=== PATIENT | male | born 1945 | race Caucasian/White ===

== ENCOUNTER 2016-08-29 09:58 | Outpatient (RCR) | payer MEDICARE, OTHER ==
[2016-06-01 09:35] LABS: BASOPHILS % (AUTO) 0 % (0-10); EOSINOPHILS % (AUTO) 0 % (0-10); LYMPHOCYTES # (AUTO) 2.2 X 10^3 (1.0-4.0); LYMPHOCYTES % (AUTO) 27 % (12-44); MEAN CORPUSCULAR HEMOGLOBIN 35 PG (25-34); MEAN CORPUSCULAR HGB CONC 34 G/DL (32-36); MEAN CORPUSCULAR VOLUME 102 FL (80-99); MEAN PLATELET VOLUME 11.8 FL (7.4-10.4); MONOCYTES # (AUTO) 1.3 X 10^3 (0.0-1.0); MONOCYTES % (AUTO) 17 % (0-12); NEUTROPHILS # (AUTO) 4.5 X 10^3 (1.8-7.8); NEUTROPHILS % (AUTO) 56 % (42-75); PLATELET COUNT 103 10^3/uL (130-400); RED BLOOD COUNT 3.38 10^6/uL (4.35-5.85); RED CELL DISTRIBUTION WIDTH 14.9 % (10.0-14.5)
[2016-06-01 10:00] LABS: ALBUMIN 4.4 G/DL (3.2-4.5); BILIRUBIN,TOTAL 0.9 MG/DL (0.1-1.0); CALCIUM 9.6 MG/DL (8.5-10.1); CREATININE SERUM 1.57 MG/DL (0.60-1.30); POTASSIUM 5.2 MMOL/L (3.6-5.0); TOTAL PROTEIN 7.3 G/DL (6.4-8.2)
[~2016-08-29 09:58] MED LIST: ALLP300T PO; AMIO400T5 PO; ASP325T; ASP325T PO; ATOR20TA66 PO; ATOR40TA; ATOR80TA PO; ATOR80TA75 PO; CARV12.52; CARV12.53 PO; CARV25TA PO; CYCL10TA9 PO; DABI150C2 PO; DCS100C PO; DIGO250T PO; FERR28TA PO; FERR325T74; GLBR2.5T; HC2.5C30 TOP; HCT25T; HCT25T PO; HYDR12.56 PO; INSU100I23 SQ; INSU100V6 SQ; KCL10CCR; LEVO100T7 PO; LIRA0.6P3 SQ; LISI10TA PO; LISI10TA2; LISI20TA PO; LSNP10T; LVT.05T PO; MAGN400T29 PO; METFOR850T; METFOR850T PO; MULT-68 PO; MULT-974 PO; MULT1CAP27 PO; MULT1TAB63; OMEG1CAP26 PO; OMG1KC; POTA10CA43 PO; SAXA5TAB PO; SIMV40TA4 PO; SITA50TA PO; TRAM-21 PO; TRM50T PO; WARF4TAB; WRF2.5T PO
[2016-08-29 10:10] LABS: BASOPHILS % (AUTO) 0 % (0-10); EOSINOPHILS % (AUTO) 1 % (0-10); LYMPHOCYTES # (AUTO) 1.6 X 10^3 (1.0-4.0); LYMPHOCYTES % (AUTO) 25 % (12-44); MEAN CORPUSCULAR HEMOGLOBIN 33 PG (25-34); MEAN CORPUSCULAR HGB CONC 34 G/DL (32-36); MEAN CORPUSCULAR VOLUME 99 FL (80-99); MEAN PLATELET VOLUME 11.3 FL (7.4-10.4); MONOCYTES # (AUTO) 1.3 X 10^3 (0.0-1.0); MONOCYTES % (AUTO) 20 % (0-12); NEUTROPHILS # (AUTO) 3.6 X 10^3 (1.8-7.8); NEUTROPHILS % (AUTO) 55 % (42-75); PLATELET COUNT 111 10^3/uL (130-400); RED BLOOD COUNT 3.51 10^6/uL (4.35-5.85); RED CELL DISTRIBUTION WIDTH 14.9 % (10.0-14.5); WHITE BLOOD COUNT 6.5 10^3/uL (4.3-11.0)
[2016-08-29 10:45] LABS: ALBUMIN 4.1 G/DL (3.2-4.5); CALCIUM 9.1 MG/DL (8.5-10.1); CREATININE SERUM 1.55 MG/DL (0.60-1.30); POTASSIUM 4.8 MMOL/L (3.6-5.0); TOTAL PROTEIN 6.9 G/DL (6.4-8.2)
== END 2016-08-30 | disposition home or self-care (01) ==
LOC: ONC 09:58
PROVIDERS: ATTEND Internal Medicine Hematology & Oncology
DX: C93.10 Chronic myelomonocytic leukemia not having achieved remission (principal); R16.1 Splenomegaly, not elsewhere classified; D69.6 Thrombocytopenia, unspecified; D64.9 Anemia, unspecified; Z79.899 Other long term (current) drug therapy
CPT/HCPCS: 36415; 80053; 83615; 85025; 99213

== ENCOUNTER 2016-11-30 09:17 | Outpatient (RCR) | payer MEDICARE, OTHER ==
[2016-11-30 09:32] LABS: BASOPHILS % (AUTO) 0 % (0-10); EOSINOPHILS # (AUTO) 0.1 10^3/uL (0.0-0.3); EOSINOPHILS % (AUTO) 1 % (0-10); LYMPHOCYTES # (AUTO) 1.8 X 10^3 (1.0-4.0); LYMPHOCYTES % (AUTO) 29 % (12-44); MEAN CORPUSCULAR HEMOGLOBIN 34 PG (25-34); MEAN CORPUSCULAR HGB CONC 34 G/DL (32-36); MEAN CORPUSCULAR VOLUME 99 FL (80-99); MEAN PLATELET VOLUME 11.2 FL (7.4-10.4); MONOCYTES % (AUTO) 16 % (0-12); NEUTROPHILS # (AUTO) 3.3 X 10^3 (1.8-7.8); NEUTROPHILS % (AUTO) 53 % (42-75); PLATELET COUNT 109 10^3/uL (130-400); RED BLOOD COUNT 3.54 10^6/uL (4.35-5.85); RED CELL DISTRIBUTION WIDTH 15.1 % (10.0-14.5); WHITE BLOOD COUNT 6.2 10^3/uL (4.3-11.0)
[2016-11-30 10:17] LABS: ALBUMIN 4.1 G/DL (3.2-4.5); BILIRUBIN,TOTAL 0.9 MG/DL (0.1-1.0); CALCIUM 9.4 MG/DL (8.5-10.1); CREATININE SERUM 1.46 MG/DL (0.60-1.30); POTASSIUM 5.1 MMOL/L (3.6-5.0); TOTAL PROTEIN 6.8 G/DL (6.4-8.2)
== END 2017-02-28 | disposition home or self-care (01) ==
LOC: ONC 09:17
PROVIDERS: ATTEND Internal Medicine Hematology & Oncology
DX: C93.10 Chronic myelomonocytic leukemia not having achieved remission (principal); R16.1 Splenomegaly, not elsewhere classified; D69.6 Thrombocytopenia, unspecified; D64.9 Anemia, unspecified; Z79.899 Other long term (current) drug therapy
CPT/HCPCS: 36415; 80053; 83615; 85025; 99213

== ENCOUNTER 2017-05-23 09:09 | Outpatient (RCR) | payer MEDICARE, OTHER ==
[2017-05-23 09:19] LABS: BASOPHILS % (AUTO) 0 % (0-10); EOSINOPHILS % (AUTO) 0 % (0-10); HEMATOCRIT 40 % (40-54); HEMOGLOBIN 13.6 G/DL (13.3-17.7); LYMPHOCYTES # (AUTO) 2.6 X 10^3 (1.0-4.0); LYMPHOCYTES % (AUTO) 23 % (12-44); MEAN CORPUSCULAR HEMOGLOBIN 34 PG (25-34); MEAN CORPUSCULAR HGB CONC 34 G/DL (32-36); MEAN CORPUSCULAR VOLUME 101 FL (80-99); MEAN PLATELET VOLUME 12.1 FL (7.4-10.4); MONOCYTES # (AUTO) 1.6 X 10^3 (0.0-1.0); MONOCYTES % (AUTO) 14 % (0-12); NEUTROPHILS # (AUTO) 6.9 X 10^3 (1.8-7.8); NEUTROPHILS % (AUTO) 62 % (42-75); PLATELET COUNT 107 10^3/uL (130-400); RED BLOOD COUNT 3.96 10^6/uL (4.35-5.85); RED CELL DISTRIBUTION WIDTH 15.6 % (10.0-14.5); WHITE BLOOD COUNT 11.1 10^3/uL (4.3-11.0)
[2017-05-23 09:45] LABS: ALBUMIN 4.2 GM/DL (3.2-4.5); CREATININE SERUM 1.42 MG/DL (0.60-1.30); POTASSIUM 4.8 MMOL/L (3.6-5.0); TOTAL PROTEIN 7.4 GM/DL (6.4-8.2)
== END 2017-08-21 | disposition home or self-care (01) ==
LOC: ONC 09:09
PROVIDERS: ATTEND Internal Medicine Hematology & Oncology
DX: C93.10 Chronic myelomonocytic leukemia not having achieved remission (principal); D69.6 Thrombocytopenia, unspecified; D64.9 Anemia, unspecified; I13.0 Hypertensive heart and chronic kidney disease with heart failure and stage 1 through stage 4 chronic kidney disease, or unspecified chronic kidney disease; I50.9 Heart failure, unspecified; N18.3 Chronic kidney disease, stage 3 (moderate); E11.22 Type 2 diabetes mellitus with diabetic chronic kidney disease; E78.5 Hyperlipidemia, unspecified; I65.23 Occlusion and stenosis of bilateral carotid arteries; E03.9 Hypothyroidism, unspecified; Z79.4 Long term (current) use of insulin; Z79.899 Other long term (current) drug therapy
CPT/HCPCS: 36415; 80053; 83615; 85025; 99213

== ENCOUNTER 2017-11-20 08:57 | Outpatient (RCR) | payer MEDICARE, OTHER ==
[2017-11-20 09:23] LABS: BASOPHILS % (AUTO) 0 % (0-10); EOSINOPHILS % (AUTO) 0 % (0-10); HEMATOCRIT 36 % (40-54); HEMOGLOBIN 12.1 G/DL (13.3-17.7); LYMPHOCYTES # (AUTO) 1.6 X 10^3 (1.0-4.0); LYMPHOCYTES % (AUTO) 22 % (12-44); MEAN CORPUSCULAR HEMOGLOBIN 34 PG (25-34); MEAN CORPUSCULAR HGB CONC 34 G/DL (32-36); MEAN CORPUSCULAR VOLUME 99 FL (80-99); MEAN PLATELET VOLUME 11.5 FL (7.4-10.4); MONOCYTES # (AUTO) 1.1 X 10^3 (0.0-1.0); MONOCYTES % (AUTO) 15 % (0-12); NEUTROPHILS # (AUTO) 4.7 X 10^3 (1.8-7.8); NEUTROPHILS % (AUTO) 63 % (42-75); PLATELET COUNT 92 10^3/uL (130-400); RED BLOOD COUNT 3.58 10^6/uL (4.35-5.85); RED CELL DISTRIBUTION WIDTH 15.8 % (10.0-14.5); WHITE BLOOD COUNT 7.4 10^3/uL (4.3-11.0)
[2017-11-20 09:42] LABS: ALBUMIN 4.1 GM/DL (3.2-4.5); BILIRUBIN,TOTAL 1.1 MG/DL (0.1-1.0); CALCIUM 8.9 MG/DL (8.5-10.1); CREATININE SERUM 1.32 MG/DL (0.60-1.30); POTASSIUM 4.6 MMOL/L (3.6-5.0)
== END 2018-02-18 | disposition home or self-care (01) ==
LOC: ONC 08:57
PROVIDERS: ATTEND Internal Medicine Hematology & Oncology
DX: C93.10 Chronic myelomonocytic leukemia not having achieved remission (principal); D69.6 Thrombocytopenia, unspecified; D64.9 Anemia, unspecified; I13.0 Hypertensive heart and chronic kidney disease with heart failure and stage 1 through stage 4 chronic kidney disease, or unspecified chronic kidney disease; I50.9 Heart failure, unspecified; N18.3 Chronic kidney disease, stage 3 (moderate); E11.22 Type 2 diabetes mellitus with diabetic chronic kidney disease; E78.5 Hyperlipidemia, unspecified; I65.23 Occlusion and stenosis of bilateral carotid arteries; E03.9 Hypothyroidism, unspecified; Z79.4 Long term (current) use of insulin; Z79.899 Other long term (current) drug therapy
CPT/HCPCS: 36415; 80053; 83615; 85025; 99213

== ENCOUNTER → 2018-03-01 | Outpatient (CLI) | payer MEDICARE, OTHER ==
--- NOTE | 2018-03-01 12:25 | Diagnostic Imaging Report ---
PROCEDURE: CT abdomen and pelvis without contrast. TECHNIQUE: Multiple contiguous axial images were obtained through the abdomen and pelvis without the use of intravenous contrast. INDICATION: Mid abdominal pain for one week. COMPARISON: Comparison is made with prior CT from 05/09/2014. FINDINGS: The lung bases are clear. No discrete liver mass is identified. The gallbladder is surgically absent. The pancreas and spleen are unremarkable. No adrenal mass is identified. Small nonobstructing calculus lower pole left kidney is again noted. No hydronephrosis is seen. The right kidney is unremarkable. Aorta is calcified but non-aneurysmal. Bowel loops do not appear to be abnormally dilated. There is no ascites. No inflammatory process is seen. There is moderate stool in the colon. Bladder and prostate are unremarkable. There appears to be a fat-containing left inguinal hernia. IMPRESSION: 1. Nonobstructing left nephrolithiasis. 2. Moderate stool suggestive of constipation. No acute feature is seen. 3. Fat containing left inguinal hernia. Dictated by: Dictated on workstation # [id number]
== END ==
LOC: RAD 11:42
DX: N20.0 Calculus of kidney (principal); K40.90 Unilateral inguinal hernia, without obstruction or gangrene, not specified as recurrent
CPT/HCPCS: 74176

== ENCOUNTER → 2018-03-18 | Outpatient (CLI) | payer MEDICARE, OTHER | LOC: CARD 12:32 | PROVIDERS: ATTEND Internal Medicine Cardiovascular Disease | DX: I25.10 Atherosclerotic heart disease of native coronary artery without angina pectoris (principal); I11.0 Hypertensive heart disease with heart failure; I50.9 Heart failure, unspecified; E78.5 Hyperlipidemia, unspecified; I08.3 Combined rheumatic disorders of mitral, aortic and tricuspid valves | CPT/HCPCS: 93306 ==

== ENCOUNTER → 2018-03-18 | Outpatient (CLI) | payer MEDICARE, OTHER ==
--- NOTE | 2018-03-18 14:02 | Diagnostic Imaging Report ---
INDICATION: Pain in low back on the right side with pain radiating down the back leg. Symptoms for several months. More recent fall two days ago. TECHNIQUE: AP, Lateral and Swimmers imaging of the thoracic spine CORRELATION STUDY: None FINDINGS: Overall, slight accentuated thoracic kyphotic curvature is noted with mildly anterior wedged midthoracic vertebral bodies. There is diffuse thin bridging osteophytes of thoracic spine consistent with likely ankylosing spondylitis. Mild rightward curvature or rotation of the patient. IMPRESSION: No radiographic evidence for acute abnormality of the thoracic spine. Findings suggestive of ankylosing spondylitis with diffuse thin bridging osteophytes large portion of the thoracic spine. Dictated by: Dictated on workstation # [id number]
--- NOTE | 2018-03-18 14:03 | Diagnostic Imaging Report ---
INDICATION: Low back pain, right-sided pain radiating down the back of leg intermittently for several months. History of fall two days ago. TECHNIQUE: AP, Lateral, and Spot imaging of the lumbar spine. CORRELATION STUDY: None. FINDINGS: Alignment appearing to be relatively anatomic. Vertebral body heights are maintained. No acute appearing compression deformity. There are bridging osteophytes at multiple levels. More prominent bulky non-bridging osteophytes anteriorly at L4 and L5 levels. Hypertrophic facet arthropathy. Mild disc space narrowing, particularly at L5-S1 level. Vascular calcification is present. IMPRESSION: No suggestion of acute compression deformity about the lumbar spine. Mildly to moderately advanced multilevel degenerative changes are present. Dictated by: Dictated on workstation # [id number]
== END ==
LOC: RAD 12:34
DX: M48.061 Spinal stenosis, lumbar region without neurogenic claudication (principal); M48.04 Spinal stenosis, thoracic region; M47.816 Spondylosis without myelopathy or radiculopathy, lumbar region; Z91.81 History of falling
CPT/HCPCS: 72072; 72100

== ENCOUNTER → 2018-03-21 | Outpatient (CLI) | payer MEDICARE, OTHER ==
--- NOTE | 2018-03-21 17:13 | Diagnostic Imaging Report ---
PROCEDURE: MRI lumbar spine. INDICATION: Low back pain with right hip and leg pain for a couple of months. No known injury. TECHNIQUE: Multiplanar and multisequence noncontrast magnetic resonance imaging was performed of the lumbar spine. CORRELATION STUDY: Lumbar spine radiographs 03/18/2018. FINDINGS: There is normal alignment and curvature of the lumbar spine. The lumbar vertebral body heights are maintained. Rounded T1 and T2 hyperintense lesion inferiorly at L3 vertebral body likely reflects a small hemangioma. The conus appears unremarkable. L5-S1: Slight disc desiccation. Mild broad-based disc bulge and very mild endplate osteophyte formation. Some encroachment upon the foramina without significant nerve root impingement. Probable small cyst within the sacral spinal canal at S2. L4-L5: Fairly good preservation of the disc space height. Very mild broad-based disc bulge is noted. Ligamentum and facet hypertrophy results in moderate trefoil-type spinal canal narrowing. Disc osteophyte formation results in rather significant right and to a lesser degree left foraminal narrowing. There is some compression and mass effect upon the exiting nerve roots. L3-L4: Ligamentum and facet hypertrophy results in wrct-ty-nbrzqban trefoil-type spinal canal narrowing. There is slight loss of disc space height and signal intensity. There is some effacement of the perineural fat. There is slight mass effect upon the exiting nerve roots. L2-L3: Fairly good preservation of the disc space height and signal intensity. Mild ligamentum and facet hypertrophy is present. Very mild trefoil-type spinal canal narrowing. Slight effacement of the perineural fat without significant nerve root impingement. L1-L2: Unremarkable. Very small T2 hyperintense lesions within the renal parenchyma of the left kidney favoring small cysts. Partially visualized urinary bladder appears to be distended. IMPRESSION: 1. Prominent severity of ligamentum and facet hypertrophy along with mild degenerative disc disease results in areas of multifocal spinal canal and foraminal narrowing as detailed above. Findings appearing most severe at the L4-L5 and L3-L4 levels. Dictated by: Dictated on workstation # [id number]
== END ==
LOC: RAD 15:08
DX: M48.061 Spinal stenosis, lumbar region without neurogenic claudication (principal); M51.17 Intervertebral disc disorders with radiculopathy, lumbosacral region; M25.78 Osteophyte, vertebrae; M89.9 Disorder of bone, unspecified; M99.73 Connective tissue and disc stenosis of intervertebral foramina of lumbar region; N28.89 Other specified disorders of kidney and ureter
CPT/HCPCS: 72148

== ENCOUNTER 2018-05-21 08:54 | Outpatient (RCR) | payer MEDICARE, OTHER ==
[2018-05-21 09:06] LABS: BASOPHILS % (AUTO) 0 % (0-10); EOSINOPHILS % (AUTO) 1 % (0-10); HEMATOCRIT 33 % (40-54); HEMOGLOBIN 11.1 G/DL (13.3-17.7); LYMPHOCYTES # (AUTO) 1.6 X 10^3 (1.0-4.0); LYMPHOCYTES % (AUTO) 22 % (12-44); MEAN CORPUSCULAR HEMOGLOBIN 34 PG (25-34); MEAN CORPUSCULAR HGB CONC 33 G/DL (32-36); MEAN CORPUSCULAR VOLUME 101 FL (80-99); MEAN PLATELET VOLUME 11.1 FL (7.4-10.4); MONOCYTES # (AUTO) 1.1 X 10^3 (0.0-1.0); MONOCYTES % (AUTO) 16 % (0-12); NEUTROPHILS # (AUTO) 4.3 X 10^3 (1.8-7.8); NEUTROPHILS % (AUTO) 61 % (42-75); PLATELET COUNT 92 10^3/uL (130-400); RED BLOOD COUNT 3.28 10^6/uL (4.35-5.85); WHITE BLOOD COUNT 7.1 10^3/uL (4.3-11.0)
[2018-05-21 09:32] LABS: ALBUMIN 4.1 GM/DL (3.2-4.5); BILIRUBIN,TOTAL 0.8 MG/DL (0.1-1.0); CALCIUM 8.9 MG/DL (8.5-10.1); CREATININE SERUM 1.44 MG/DL (0.60-1.30); POTASSIUM 4.8 MMOL/L (3.6-5.0); TOTAL PROTEIN 6.7 GM/DL (6.4-8.2)
== END 2018-08-19 | disposition home or self-care (01) ==
LOC: ONC 08:54
PROVIDERS: ATTEND Internal Medicine Hematology & Oncology
DX: C93.10 Chronic myelomonocytic leukemia not having achieved remission (principal); D69.6 Thrombocytopenia, unspecified; D64.9 Anemia, unspecified; I13.0 Hypertensive heart and chronic kidney disease with heart failure and stage 1 through stage 4 chronic kidney disease, or unspecified chronic kidney disease; I50.9 Heart failure, unspecified; N18.3 Chronic kidney disease, stage 3 (moderate); E11.22 Type 2 diabetes mellitus with diabetic chronic kidney disease; E78.5 Hyperlipidemia, unspecified; I65.23 Occlusion and stenosis of bilateral carotid arteries; E03.9 Hypothyroidism, unspecified; Z79.4 Long term (current) use of insulin; Z79.899 Other long term (current) drug therapy
CPT/HCPCS: 36415; 80053; 83615; 85025; 99213

== ENCOUNTER 2018-11-21 08:49 | Outpatient (RCR) | payer MEDICARE, OTHER ==
[2018-11-21 08:53] LABS: BASOPHILS % (AUTO) 0 % (0-10); EOSINOPHILS # (AUTO) 0.1 10^3/uL (0.0-0.3); EOSINOPHILS % (AUTO) 1 % (0-10); HEMATOCRIT 36 % (40-54); HEMOGLOBIN 12.2 G/DL (13.3-17.7); LYMPHOCYTES # (AUTO) 2.1 X 10^3 (1.0-4.0); LYMPHOCYTES % (AUTO) 34 % (12-44); MEAN CORPUSCULAR HEMOGLOBIN 33 PG (25-34); MEAN CORPUSCULAR HGB CONC 34 G/DL (32-36); MEAN CORPUSCULAR VOLUME 100 FL (80-99); MEAN PLATELET VOLUME 10.9 FL (7.4-10.4); MONOCYTES # (AUTO) 1.4 X 10^3 (0.0-1.0); MONOCYTES % (AUTO) 23 % (0-12); NEUTROPHILS # (AUTO) 2.5 X 10^3 (1.8-7.8); NEUTROPHILS % (AUTO) 42 % (42-75); PLATELET COUNT 92 10^3/uL (130-400); RED CELL DISTRIBUTION WIDTH 15.9 % (10.0-14.5); WHITE BLOOD COUNT 6.1 10^3/uL (4.3-11.0)
[2018-11-21 09:20] LABS: ALBUMIN 4.3 GM/DL (3.2-4.5); BILIRUBIN,TOTAL 1.3 MG/DL (0.1-1.0); CALCIUM 9.1 MG/DL (8.5-10.1); CREATININE SERUM 1.58 MG/DL (0.60-1.30); POTASSIUM 5.1 MMOL/L (3.6-5.0); TOTAL PROTEIN 7.3 GM/DL (6.4-8.2)
== END 2019-02-19 | disposition home or self-care (01) ==
LOC: ONC 08:49
PROVIDERS: ATTEND Internal Medicine Hematology & Oncology
DX: C93.10 Chronic myelomonocytic leukemia not having achieved remission (principal); D69.6 Thrombocytopenia, unspecified; D64.9 Anemia, unspecified; I13.0 Hypertensive heart and chronic kidney disease with heart failure and stage 1 through stage 4 chronic kidney disease, or unspecified chronic kidney disease; I50.9 Heart failure, unspecified; N18.3 Chronic kidney disease, stage 3 (moderate); E11.22 Type 2 diabetes mellitus with diabetic chronic kidney disease; E78.5 Hyperlipidemia, unspecified; I65.23 Occlusion and stenosis of bilateral carotid arteries; E03.9 Hypothyroidism, unspecified; Z79.4 Long term (current) use of insulin; Z79.899 Other long term (current) drug therapy
CPT/HCPCS: 36415; 80053; 83615; 85025; 99213

== ENCOUNTER 2019-04-01 09:49 | Emergency (ER) | payer MEDICARE, OTHER ==
[~2019-04-01] VITALS: Ht 188 cm; Wt 100.2 kg
--- NOTE | 2019-04-01 10:37 | NUR ---
RESTING IN CHAIR. DENIES NEEDS. NOTIFIED HIM A 2ND PROVIDER WOULD BE HERE SOON.
[2019-04-01] MEDS ORDERED: CEPH-507 PO (10:56)
--- NOTE | 2019-04-01 10:56 | ED Lower Extremity ---
General Chief Complaint: Laceration Stated Complaint: TOE LACERATION Nursing Triage Note: LACERATION TO RIGHT GREAT TOE THIS AM. PT IS A DIABETIC. Nursing Sepsis Screen: No Definite Risk Source: patient Exam Limitations: no limitations History of Present Illness Date Seen by Provider: Apr 01, 2019 Time Seen by Provider: 10:53 Initial Comments To ER with reports of a laceration to the right great toe. Unsure how he got it, woke up this morning and was getting ready, looks down the floor noticed some blood. Does not recall any injury, he is diabetic and has neuropathy of the feet. He is on Pradaxa Onset: just prior to arrival Severity: moderate Pain/Injury Location: right 1st toe Method of Injury: unknown Modifying Factors: Worse With Movement Allergies and Home Medications Allergies Coded Allergies: No Known Drug Allergies (Verified , 04/20/08) Home Medications Allopurinol 300 Mg Tab, 300 MG PO DAILY, (Reported) Atorvastatin Calcium 20 Mg Tablet, 20 MG PO HS, (Reported) Carvedilol 25 Mg Tablet, 25 MG PO BID, (Reported) Cyclobenzaprine Hcl 10 Mg Tablet, 1 EACH PO Q8HR PRN Prescribed by: KATHRIN RICHMOND on 05/09/14 1655 Dabigatran Etexilate Mesylate 150 Mg Capsule, 150 MG PO BID, (Reported) Digoxin 250 Mcg Tablet, 0.25 MG PO DAILY, (Reported) Docusate Sodium 100 Mg Capsule, 100 MG PO DAILY PRN for CONSTIPATION, (Reported) Hydrochlorothiazide 12.5 Mg Tablet, 12.5 MG PO DAILY, (Reported) Insulin Glargine,Hum.rec.anlog 100 Unit/1 Ml Vial, 40 UNIT SQ BID, (Reported) Insulin Lispro 100 Unit/1 Ml Insuln.pen, 20 UNIT SQ with lunch and dinne, (Reported) Levothyroxine Sodium 100 Mcg Tablet, 100 MCG PO DAILY, (Reported) Liraglutide 0.6 Mg/0.1 Ml Pen.injctr, 1.2 MG SQ DAILY, (Reported) Lisinopril 10 Mg Tablet, 10 MG PO BID, (Reported) Magnesium Oxide 400 Mg Tablet, 400 MG PO BID, (Reported) [place]-3/Dha/Epa/Fish Oil 1 Each Capsule, 1,000 MG PO BID, (Reported) Potassium Chloride 10 Meq Capsule.sa, 10 MEQ PO DAILY, (Reported) WITH FOOD Tramadol Hcl 50 Mg Tablet, 50 MG PO Q4H Prescribed by: KATHRIN RICHMOND on 05/09/14 3116 Patient Home Medication List Home Medication List Reviewed: Yes Review of Systems Constitutional: see HPI EENTM: see HPI Respiratory: no symptoms reported Cardiovascular: no symptoms reported Genitourinary: no symptoms reported Musculoskeletal: no symptoms reported Skin: see HPI Past Qygqykb-Kwnvwp-Fvlrou Hx Patient Social History Alcohol Use: Rarely Uses Recreational Drug Use: No Smoking Status: Former Smoker Recent Foreign Travel: No Contact w/Someone Who Travel: No Recent Infectious Disease Expo: No Recent Hopitalizations: Yes Immunizations Up To Date Tetanus Booster (TDap): Less than 5yrs Date of Pneumonia Vaccine: May 22, 2011 Date of Influenza Vaccine: Apr 29, 2014 Past Medical History Surgeries: Yes (ABD HERNIA REPAIR, R index finger amputated, Fem POP) Respiratory: No Cardiac: Yes (heart attack x2, 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 0.0oz. 100.783189pv; 31.7 BMI Method:Stated General Appearance: WD/WN, no apparent distress HEENT: PERRL/EOMI, normal ENT inspection (A month antibiotics I redressed it) Neck: non-tender, full range of motion Respiratory: no respiratory distress Hips: bilateral hip non-tender, bilateral hip normal inspection, bilateral hip normal range of motion Legs: bilateral leg non-tender, bilateral leg normal inspection, bilateral leg normal range of motion Knees: bilateral knee non-tender, bilateral knee normal inspection, bilateral knee normal range of motion Ankles: bilateral ankle non-tender, bilateral ankle normal inspection, bilateral ankle normal range of motion Feet: right foot other (no pain, 2 mm puncture wound to the very anterior tip of the pad of the right great toe. No active bleeding. No foreign body identified.) Neurologic/Psychiatric: alert, normal mood/affect, oriented x 3 Skin: normal color, warm/dry Progress/Results/Core Measures Results/Orders Vital Signs/I&O 04/01/19 09:50 Temp 97.2 Pulse 84 Resp 16 B/P (MAP) 132/71 (91) Pulse Ox 98 O2 Delivery Room Air Blood Pressure Mean: 91 Departure Impression Primary Impression: Puncture wound of toe Qualified Codes: S91.139A - Puncture wound without foreign body of unspecified toe(s) without damage to nail, initial encounter Disposition: HOME, SELF-CARE Condition: Stable Departure-Patient Inst. Decision time for Depature: 10:55 Referrals: SCOTT FREEMAN MD (PCP/Family) Primary Care Physician Patient Instructions: Toe Injury (DC) Add. Discharge Instructions: 1. Follow-up with Dr. Freeman later this week. Take the antibiotics as directed. Return to ER for any sign of infection such as redness swelling fevers or chills. All discharge instructions reviewed with patient and/or family. Voiced understanding. Scripts Cephalexin (Keflex) 500 Mg Capsule 500 MG PO TID, #14 CAP Prov: DOUGLAS BALLESTEROS HUMAN RESOURCES SERVICES SPECIALIST 04/01/19 DOUGLAS BALLESTEROS HUMAN RESOURCES SERVICES SPECIALIST Apr 01, 2019 10:56
[2019-04-01 11:04] VITALS: BP 132/71
== END 2019-04-01 11:04 | disposition home or self-care (01) ==
LOC: EDUNIT# 09:49 → ER 09:50
DX: S91.131A Puncture wound without foreign body of right great toe without damage to nail, initial encounter (principal); E11.40 Type 2 diabetes mellitus with diabetic neuropathy, unspecified; I25.2 Old myocardial infarction; Z87.442 Personal history of urinary calculi; Z87.891 Personal history of nicotine dependence; Z79.01 Long term (current) use of anticoagulants; Z79.4 Long term (current) use of insulin; Z98.890 Other specified postprocedural states; Z89.021 Acquired absence of right finger(s); X58.XXXA Exposure to other specified factors, initial encounter

== ENCOUNTER → 2019-05-28 | Outpatient (CLI) | payer MEDICARE, OTHER ==
[~2019-05-28] VITALS: Ht 187 cm; Wt 105.0 kg
[~2019-05-28] MED LIST changes: +CEPH-507 PO; +REGADENOSON 0.4 MG/5 ML SYR (LEXISCAN) IV ONE
[2019-05-28] MEDS: CATHETER FLUSH 10 ML SYR IV PRN ×2 (08:37→08:51)
--- NOTE | 2019-05-28 18:04 | STRESS TEST ---
DATE OF SERVICE: 05/28/2019 LEXISCAN MYOVIEW STRESS TEST REPORT REFERRING PHYSICIAN: Scot Suresh MD Baseline heart rate is 61, baseline blood pressure 142/75. Baseline EKG is atrial fibrillation with no ischemic changes. In summary, the patient was injected with 9.9 mCi of technetium-99 Myoview and the resting images were obtained. Then, the patient received 0.4 mg of Lexiscan followed by 28.5 mCi of technetium-99 Myoview. Throughout the test, there were no EKG changes. The resting and stress images were reviewed and compared in the short axis, horizontal long axis, and vertical long axis views. Review of the images showed fix defect involving the whole inferior wall, inferior apex and true apex. SSS is 26, SDS 7, TID value 0.99. On the gated images, the patient had a severe hypokinesia of the inferior wall, dyskinesia of the apex. Calculated ejection fraction 31%. CONCLUSION: 1. The patient tolerated Lexiscan well. 2. Total infarction of the whole inferior wall, inferior apex with no significant reversibility. 3. Hypokinesia at the inferior wall dyskinesia of the apex. Calculated ejection fraction 31%. Job ID: [id number] DocumentID: [id number] Dictated Date: 05/28/2019 17:37:45 Pasteurizer Date: 05/28/2019 18:04:09 Dictated By: CHITO HANNAH MD
== END ==
LOC: CARD 08:28
PROVIDERS: ATTEND Internal Medicine Cardiovascular Disease
DX: I08.3 Combined rheumatic disorders of mitral, aortic and tricuspid valves (principal); I13.0 Hypertensive heart and chronic kidney disease with heart failure and stage 1 through stage 4 chronic kidney disease, or unspecified chronic kidney disease; I65.29 Occlusion and stenosis of unspecified carotid artery; I50.9 Heart failure, unspecified; N18.3 Chronic kidney disease, stage 3 (moderate); I25.10 Atherosclerotic heart disease of native coronary artery without angina pectoris; I25.2 Old myocardial infarction
CPT/HCPCS: 93306

== ENCOUNTER → 2019-05-29 | Outpatient (CLI) | payer MEDICARE, OTHER ==
[~2019-05-29] MED LIST changes: -REGADENOSON 0.4 MG/5 ML SYR (LEXISCAN) IV ONE
[2019-05-29 09:19] LABS: BASOPHILS % (AUTO) 0 % (0-10); EOSINOPHILS # (AUTO) 0.1 10^3/uL (0.0-0.3); EOSINOPHILS % (AUTO) 1 % (0-10); HEMATOCRIT 35 % (40-54); HEMOGLOBIN 11.4 G/DL (13.3-17.7); LYMPHOCYTES # (AUTO) 1.8 X 10^3 (1.0-4.0); LYMPHOCYTES % (AUTO) 24 % (12-44); MEAN CORPUSCULAR HEMOGLOBIN 32 PG (25-34); MEAN CORPUSCULAR HGB CONC 33 G/DL (32-36); MEAN CORPUSCULAR VOLUME 98 FL (80-99); MEAN PLATELET VOLUME 12.5 FL (7.4-10.4); MONOCYTES # (AUTO) 0.9 X 10^3 (0.0-1.0); MONOCYTES % (AUTO) 13 % (0-12); NEUTROPHILS # (AUTO) 4.6 X 10^3 (1.8-7.8); NEUTROPHILS % (AUTO) 63 % (42-75); PLATELET COUNT 86 10^3/uL (130-400); RED CELL DISTRIBUTION WIDTH 14.9 % (10.0-14.5); WHITE BLOOD COUNT 7.4 10^3/uL (4.3-11.0)
[2019-05-29 09:41] LABS: ALBUMIN 4.2 GM/DL (3.2-4.5); BILIRUBIN,TOTAL 0.9 MG/DL (0.1-1.0); CALCIUM 9.3 MG/DL (8.5-10.1); CREATININE SERUM 1.73 MG/DL (0.60-1.30); POTASSIUM 5.1 MMOL/L (3.6-5.0); TOTAL PROTEIN 7.3 GM/DL (6.4-8.2)
== END ==
LOC: EDSTATUS 02-20 08:51 → ONC 08:55
PROVIDERS: ATTEND Internal Medicine Hematology & Oncology
DX: C93.10 Chronic myelomonocytic leukemia not having achieved remission (principal); D69.6 Thrombocytopenia, unspecified; D64.9 Anemia, unspecified; I13.0 Hypertensive heart and chronic kidney disease with heart failure and stage 1 through stage 4 chronic kidney disease, or unspecified chronic kidney disease; I50.9 Heart failure, unspecified; N18.3 Chronic kidney disease, stage 3 (moderate); E11.22 Type 2 diabetes mellitus with diabetic chronic kidney disease; E78.5 Hyperlipidemia, unspecified; I65.23 Occlusion and stenosis of bilateral carotid arteries; E03.9 Hypothyroidism, unspecified; Z79.4 Long term (current) use of insulin; Z79.899 Other long term (current) drug therapy
CPT/HCPCS: 36415; 80053; 83615; 85025; 99213

== ENCOUNTER → 2019-07-15 | Outpatient (CLI) | payer MEDICARE, OTHER ==
--- NOTE | 2019-07-15 12:00 | Diagnostic Imaging Report ---
INDICATION: Right mid rib pain x1 month.. TECHNIQUE: Two view chest 11:43 AM CORRELATION STUDY: 05/09/2014 FINDINGS: Poststernotomy changes. Heart size, mediastinum and vasculature overall within normal limits. There is what appears to be likely chronic changes about the lung parenchyma. No consolidating infiltrate. No effusion. Mild blunting of the costophrenic angles likely minimal pleural thickening. Diffuse bridging osteophytes throughout the thoracic spine suggestive of underlying ankylosing spondylitis. IMPRESSION: 1. Post surgical change of the chest. Negative for acute abnormality. Chronic appearing changes about the lung parenchyma. Dictated by: Dictated on workstation # [id number]
--- NOTE | 2019-07-15 14:27 | Diagnostic Imaging Report ---
INDICATION: Right-sided rib pain for one month. TIME OF EXAM: 11:45 a.m. FINDINGS: Three views of the right ribs were obtained. No displaced rib fracture is detected. No parenchymal contusion, effusion, or pneumothorax is identified. IMPRESSION: No acute abnormality is detected. Dictated by: Dictated on workstation # [id number]
== END ==
LOC: RAD 11:29
DX: R07.81 Pleurodynia (principal); Z98.890 Other specified postprocedural states
CPT/HCPCS: 71046; 71100

== ENCOUNTER → 2019-07-21 | Outpatient (CLI) | payer MEDICARE, OTHER ==
[~2019-07-21] MED LIST changes: +CATHETER FLUSH 10 ML SYR IV PRN; +HOLD METFORMIN - RECEIVED CONTRAST 20 ML VIAL IV SCH; +IOHEXOL 350 MG/ML 100 ML (OMNIPAQUE 350) VIAL IV ONE; +NS 100 ML (IVPB) BAG IV ONE
--- NOTE | 2019-07-21 15:18 | Diagnostic Imaging Report ---
PROCEDURE: CT abdomen and pelvis with contrast. TECHNIQUE: Multiple contiguous axial images were obtained through the abdomen and pelvis after administration of intravenous contrast. Auto Exposure Controls were utilized during the CT exam to meet ALARA standards for radiation dose reduction. INDICATION: Right flank pain. COMPARISON: Comparison made with prior examination 03/01/2018. FINDINGS: There is some minimal dependent atelectasis in the lung bases. Heart size is stable. There is mild fatty infiltration of the liver. Gallbladder is surgically absent. There is no biliary duct dilatation. There is a cyst in the anterior aspect of the spleen. The pancreas and adrenal glands are unremarkable. There is some cortical scarring in the right kidney. There appears to be a nonobstructing stone in the left kidney. There is no hydronephrosis. The abdominal aorta is nonaneurysmal. Bowel gas pattern is nonspecific. There is no free air. There is no ascites. There is some diverticular disease. There is no focal inflammatory process. There are degenerative changes in the spine. IMPRESSION: 1. Cardiomegaly and some dependent atelectasis in the lung bases. 2. Nonobstructing left renal stone as well as left renal cyst. There is cortical scarring in the right kidney. There is however no evidence of obstructive uropathy. 3. Diverticular disease without evidence of diverticulitis. 4. No other acute abnormality in the abdomen or pelvis. Dictated by: Dictated on workstation # [id number]
== END ==
LOC: RAD 14:30
DX: K57.90 Diverticulosis of intestine, part unspecified, without perforation or abscess without bleeding (principal); I51.7 Cardiomegaly; N20.0 Calculus of kidney; N28.1 Cyst of kidney, acquired; R63.4 Abnormal weight loss
CPT/HCPCS: 74177

== ENCOUNTER → 2020-01-01 | Outpatient (CLI) | payer MEDICARE, OTHER ==
[~2020-01-01] MED LIST changes: -CATHETER FLUSH 10 ML SYR IV PRN; -HOLD METFORMIN - RECEIVED CONTRAST 20 ML VIAL IV SCH; -IOHEXOL 350 MG/ML 100 ML (OMNIPAQUE 350) VIAL IV ONE; -NS 100 ML (IVPB) BAG IV ONE
[2020-01-01 14:40] LABS: BASOPHILS % (AUTO) 0 % (0-10); EOSINOPHILS # (AUTO) 0.1 10^3/uL (0.0-0.3); EOSINOPHILS % (AUTO) 1 % (0-10); HEMATOCRIT 35 % (40-54); HEMOGLOBIN 11.6 G/DL (13.3-17.7); LYMPHOCYTES # (AUTO) 1.7 X 10^3 (1.0-4.0); LYMPHOCYTES % (AUTO) 27 % (12-44); MEAN CORPUSCULAR HEMOGLOBIN 32 PG (25-34); MEAN CORPUSCULAR HGB CONC 33 G/DL (32-36); MEAN CORPUSCULAR VOLUME 95 FL (80-99); MEAN PLATELET VOLUME 12.1 FL (7.4-10.4); MONOCYTES # (AUTO) 1.2 X 10^3 (0.0-1.0); MONOCYTES % (AUTO) 19 % (0-12); NEUTROPHILS # (AUTO) 3.4 X 10^3 (1.8-7.8); NEUTROPHILS % (AUTO) 54 % (42-75); PLATELET COUNT 110 10^3/uL (130-400); RED CELL DISTRIBUTION WIDTH 15.4 % (10.0-14.5); WHITE BLOOD COUNT 6.3 10^3/uL (4.3-11.0)
[2020-01-01 15:01] LABS: ALBUMIN 4.1 GM/DL (3.2-4.5); BILIRUBIN,TOTAL 1.1 MG/DL (0.1-1.0); CALCIUM 8.8 MG/DL (8.5-10.1); CREATININE SERUM 1.69 MG/DL (0.60-1.30); POTASSIUM 4.6 MMOL/L (3.6-5.0); TOTAL PROTEIN 7.4 GM/DL (6.4-8.2)
== END ==
LOC: ONC 14:30
PROVIDERS: ATTEND Internal Medicine Hematology & Oncology
DX: I25.10 Atherosclerotic heart disease of native coronary artery without angina pectoris (principal); I10 Essential (primary) hypertension; E78.2 Mixed hyperlipidemia; C93.10 Chronic myelomonocytic leukemia not having achieved remission; D69.6 Thrombocytopenia, unspecified; D63.1 Anemia in chronic kidney disease; N18.3 Chronic kidney disease, stage 3 (moderate)
CPT/HCPCS: 80053; 83615; 85025; 99213

== ENCOUNTER → 2020-06-10 | Outpatient (CLI) | payer MEDICARE, OTHER | LOC: ONC 13:27 | PROVIDERS: ATTEND Internal Medicine Hematology & Oncology | DX: C93.10 Chronic myelomonocytic leukemia not having achieved remission (principal); D69.6 Thrombocytopenia, unspecified; D64.9 Anemia, unspecified; I13.10 Hypertensive heart and chronic kidney disease without heart failure, with stage 1 through stage 4 chronic kidney disease, or unspecified chronic kidney disease; N18.30 Chronic kidney disease, stage 3 unspecified; E78.2 Mixed hyperlipidemia; E11.9 Type 2 diabetes mellitus without complications | CPT/HCPCS: 99213 ==

== ENCOUNTER → 2020-08-12 | Outpatient (CLI) | payer MEDICARE, OTHER | LOC: CARD 09:58 | DX: R06.09 Other forms of dyspnea (principal) | CPT/HCPCS: 93005 ==

== ENCOUNTER → 2020-10-29 | Outpatient (CLI) | payer MEDICARE, OTHER | LOC: CARD 10:00 | PROVIDERS: ATTEND Physician Assistant | DX: I10 Essential (primary) hypertension (principal); I08.0 Rheumatic disorders of both mitral and aortic valves | CPT/HCPCS: 93306 ==

== ENCOUNTER → 2020-12-20 | Outpatient (CLI) | payer MEDICARE, OTHER | LOC: ONC 10:26 | PROVIDERS: ATTEND Internal Medicine Hematology & Oncology | DX: C93.10 Chronic myelomonocytic leukemia not having achieved remission (principal); D69.6 Thrombocytopenia, unspecified; I13.0 Hypertensive heart and chronic kidney disease with heart failure and stage 1 through stage 4 chronic kidney disease, or unspecified chronic kidney disease; E11.22 Type 2 diabetes mellitus with diabetic chronic kidney disease; N18.30 Chronic kidney disease, stage 3 unspecified; R16.1 Splenomegaly, not elsewhere classified; D63.1 Anemia in chronic kidney disease; E03.9 Hypothyroidism, unspecified; E66.9 Obesity, unspecified; Z79.899 Other long term (current) drug therapy; Z79.890 Hormone replacement therapy; Z68.28 Body mass index [BMI] 28.0-28.9, adult | CPT/HCPCS: 99213 ==

== ENCOUNTER 2021-04-11 06:58 | Emergency (ER) | payer MEDICARE, OTHER ==
[~2021-04-11] VITALS: Ht 185.4 cm; Wt 104.0 kg
[2021-04-11 07:15] VITALS: BP 128/69
--- NOTE | 2021-04-11 07:47 | ED Abdominal Pain ---
General Chief Complaint: Abdominal/GI Problems Stated Complaint: LUMP GROIN AREA Nursing Triage Note: Ambulatory to ED. Pt c/o R sided groin lump with pain that has persisted for "ahile." Pt has not sought care for these symptoms in the past and reports symptoms have worsened today. Pt c/o nausea. Pt denies urinary or bowel issues. Source of Information: Patient Exam Limitations: No Limitations History of Present Illness Date Seen by Provider: Apr 11, 2021 Time Seen by Provider: 07:20 Initial Comments Patient to the ER by private conveyance with chief complaint of a little over a month of small lump on the right inguinal area progressively large and in. Its smallest in the morning and worse throughout the day. He says there is a ripping tearing pain about a week ago and now the lump as progressed much nimco cker. He is able to pass bowel movements and flatus. He is not having any dysuria fevers chills. He has had is a Pentax out as well as a CABG. He is on Pradaxa. Allergies and Home Medications Allergies Coded Allergies: No Known Drug Allergies (Verified , 04/20/08) Home Medications Allopurinol 300 Mg Tab, 300 MG PO DAILY, (Reported) Atorvastatin Calcium 20 Mg Tablet, 20 MG PO HS, (Reported) Carvedilol 25 Mg Tablet, 25 MG PO BID, (Reported) Cephalexin 500 Mg Capsule, 500 MG PO TID Prescribed by: DOUGLAS BALLESTEROS on 04/01/19 1056 Cyclobenzaprine Hcl 10 Mg Tablet, 1 EACH PO Q8HR PRN Prescribed by: KATHRIN RICHMOND on 05/09/14 1655 Dabigatran Etexilate Mesylate 150 Mg Capsule, 150 MG PO BID, (Reported) Digoxin 250 Mcg Tablet, 0.25 MG PO DAILY, (Reported) Docusate Sodium 100 Mg Capsule, 100 MG PO DAILY PRN for CONSTIPATION, (Reported) Hydrochlorothiazide 12.5 Mg Tablet, 12.5 MG PO DAILY, (Reported) Insulin Glargine,Hum.rec.anlog 100 Unit/1 Ml Vial, 40 UNIT SQ BID, (Reported) Insulin Lispro 100 Unit/1 Ml Insuln.pen, 20 UNIT SQ with lunch and dinne, (Reported) Levothyroxine Sodium 100 Mcg Tablet, 100 MCG PO DAILY, (Reported) Liraglutide 0.6 Mg/0.1 Ml Pen.injctr, 1.2 MG SQ DAILY, (Reported) Lisinopril 10 Mg Tablet, 10 MG PO BID, (Reported) Magnesium Oxide 400 Mg Tablet, 400 MG PO BID, (Reported) [place]-3/Dha/Epa/Fish Oil 1 Each Capsule, 1,000 MG PO BID, (Reported) Potassium Chloride 10 Meq Capsule.sa, 10 MEQ PO DAILY, (Reported) WITH FOOD Tramadol Hcl 50 Mg Tablet, 50 MG PO Q4H Prescribed by: KATHRIN RICHMOND on 05/09/14 7821 Patient Home Medication List Home Medication List Reviewed: Yes Review of Systems Review of Systems Constitutional: No chills, No diaphoresis EENTM: No Blurred Vision, No Double Vision Respiratory: Denies Cough, Denies Shortness of Air Cardiovascular: Denies Chest Pain, Denies Lightheadedness Gastrointestinal: Denies Constipated, Denies Diarrhea, Denies Nausea Genitourinary: Denies Burning, Denies Discharge Musculoskeletal: No back pain, No joint pain All Other Systems Reviewed Negative Unless Noted: Yes Past Govxrlg-Cqckta-Fpclks Hx Patient Social History Tobacco Use?: No Substance use?: No Alcohol Use?: No Pt feels they are or have been: No Immunizations Up To Date Tetanus Booster (TDap): Less than 5yrs First/Initial COVID19 Vaccinat: 12/01 Second COVID19 Vaccination Delio: 12/31 COVID19 Vaccine Anti Air Warfare Operations Officer: daina Past Medical History Surgeries: Yes (ABD HERNIA REPAIR, R index finger amputated, Fem POP) Respiratory: No Cardiac: Yes (heart attack x2, 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 0.0oz. 100.229639nw; 30.00 BMI Method:Stated General Appearance: WD/WN, no apparent distress HEENT: normal ENT inspection, pharynx normal Neck: full range of motion, normal inspection Respiratory: lungs clear, normal breath sounds, no respiratory distress, no accessory muscle use Cardiovascular: normal peripheral pulses, regular rate, rhythm Gastrointestinal: normal bowel sounds, non tender, soft, no organomegaly Genital/Rectal: other (Nonpulsatile soft tissue mass in the right inguinal canal that is easily reducible with some firm pressure. Hernial defect palpable.) Extremities: normal inspection, normal capillary refill Progress/Results/Core Measures Results/Orders Vital Signs/I&O 04/11/21 07:15 Temp 36.7 Pulse 78 Resp 20 B/P (MAP) 128/69 (88) Pulse Ox 95 O2 Delivery Room Air Blood Pressure Mean: 88 Progress Progress Note : Time: 07:45 Progress Note Discussed the case with Dr. Tafoya who thinks he can fit him into his schedule today. Departure Impression Primary Impression: Reducible right inguinal hernia Disposition: 01 HOME, SELF-CARE Condition: Stable Departure-Patient Inst. Decision time for Depature: 07:46 Referrals: ANSLEY TAFOYA RICK D MD (PCP/Family) Primary Care Physician Patient Instructions: Groin Hernia (DC) Add. Discharge Instructions: Return to the ER promptly if you are unable to pass gas bowel movements or are having intractable pain. Follow-up in Dr. Tafoya's clinic at 930 today to discuss inguinal hernia repair. All discharge instructions reviewed with patient and/or family. Voiced under standing. Copy Copies To 1: ANSLEY TAFOYA TITUS J Apr 11, 2021 07:47
== END 2021-04-11 07:50 | disposition home or self-care (01) ==
LOC: EDUNIT# 06:58 → ER 07:00
DX: K40.90 Unilateral inguinal hernia, without obstruction or gangrene, not specified as recurrent (principal); I25.2 Old myocardial infarction; Z79.01 Long term (current) use of anticoagulants
CPT/HCPCS: 99282

== ENCOUNTER 2021-04-19 05:57 | Outpatient (CLI) | payer MEDICARE, OTHER ==
[~2021-04-19] VITALS: Ht 188 cm; Wt 106.3 kg
[2021-04-19] MEDS ORDERED: GLIP5TAB26 PO (11:45)
[2021-04-19] MEDS ORDERED: ALLO100T PO (11:45)
[2021-04-19] MEDS ORDERED: TRM50T PO (11:45)
[2021-04-19] MEDS ORDERED: ATOR10TA66 PO (11:45)
[2021-04-19] MEDS ORDERED: FURO40TA4 PO (11:45)
[2021-04-19] MEDS ORDERED: TRAZ-227 PO (11:45)
[2021-04-19] MEDS ORDERED: INSU300I SQ (11:45)
[2021-04-19] MEDS ORDERED: GLBR5T PO (11:45)
== END 2021-04-19 11:56 | disposition home or self-care (01) ==
LOC: PREOP 05:57
PROVIDERS: ATTEND Surgery
DX: Z01.818 Encounter for other preprocedural examination (principal)

== ENCOUNTER 2021-04-21 05:57 | Day surgery (SDC) | payer MEDICARE, OTHER ==
[2021-04-21] VITALS (9 sets, daily range): BP systolic 130–158; BP diastolic 62–87
[~2021-04-21] VITALS: Ht 188 cm; Wt 106.3 kg
[~2021-04-21 05:57] MED LIST changes: +ALLO100T PO; +ATOR10TA66 PO; +FURO40TA4 PO; +GLBR5T PO; +GLIP5TAB26 PO; +INSU300I SQ; +TRAZ-227 PO
[2021-04-21] MEDS ORDERED: LACTATED RINGERS 1,000 ML IV PRN (06:15)
[2021-04-21] MEDS ORDERED: ceFAZolin 2 GM IV Premixed 50 ML IV ONE (06:15)
[2021-04-21] MEDS ORDERED: SEVOFLURANE (ULTANE) 15 ML INHAL SOLN ONE (06:58)
[2021-04-21] MEDS ORDERED: fentaNYL INJ 100 MCG/2 ML AMP ONE (06:58)
[2021-04-21] MEDS ORDERED: LIDOCAINE PF 2% 5 ML (XYLOCAINE) VIAL ONE (06:58)
[2021-04-21] MEDS ORDERED: ONDANSETRON 4 MG/2 ML (SDV) Z0FRAN ONE (06:58)
[2021-04-21] MEDS ORDERED: ROCURONIUM 10 MG/ML 5 ML SYRINGE IV ONE (06:58)
[2021-04-21] MEDS ORDERED: proPOfol 200 MG/20 ML (DIPRIVAN) VIAL IV ONE (06:58)
[2021-04-21] MEDS ORDERED: LIDOCAINE/EPI 1%-1:100,000 (XYLOCAINE) 20ML ONE (07:17)
--- NOTE | 2021-04-21 07:59 | Progress Note-Pre Operative ---
Pre-Operative Progress Note H&P Reviewed The H&P was reviewed, patient examined and no changes noted. Date Seen by Provider: Apr 21, 2021 Time Seen by Provider: 07:58 Date H&P Reviewed: Apr 21, 2021 Time H&P Reviewed: 07:58 Pre-Operative Diagnosis: right inguinal hernia ANSLEY DOTSON DO Apr 21, 2021 07:58
[2021-04-21] MEDS ORDERED: GLYCOPYRROLATE 0.2 MG/ML (ROBINUL) 2 ML VIAL ONE ×2 (08:27→08:50)
[2021-04-21] MEDS ORDERED: NEOSTIGMINE 3 MG/3 ML VIAL ONE (08:50)
--- NOTE | 2021-04-21 08:57 | Progress Note-Post Operative ---
Post-Operative Progess Note Surgeon (s)/City Mail Carrier (s) Surgeon ANSLEY DOTSON DO City Mail Carrier: na Pre-Operative Diagnosis right inguinal hernia Post-Operative Diagnosis direct and indirect inguinal hernia, cord lipoma Procedure & Operative Findings Date of Procedure 04/21/21 Procedure Performed/Findings PROCEDURE: Open right inguinal hernia repair excision cord lipoma. COMPLICATIONS: None. INDICATIONS: The patient is a 75, male male with a inguinal hernia. He understands risks and benefits of procedure and wished to proceed with procedure. Consent was signed in the chart. DESCRIPTION OF PROCEDURE: The patient was taken to the operating suite, was prepped and draped in sterile fashion. Surgical pause was performed. Local anesthetic was infiltrated in the lower quadrant. Incision was made and cautery used to dissect down to the external oblique, which was then opened down through the external ring. The spermatic cord was then dissected around. A George drain was placed around it and there was no direct defect present. A indirect hernia present which was then dissected off of spermatic cord. Cord lipoma dissected off as well and excised. The hernia sac was then twistedand suture ligated. Direct defect was closed using 2-0 Vicryl in figure eight fashion. Using ProGrip mesh, this was secured at Sean's ligament and then incorporated around the spermatic cord and placed under the external oblique. Hemostasis was achieved. The external oblique was then closed recreating the external ring and then the subcutaneous tissues were then reapproximated using 3-0 Vicryl and skin was then closed using 4-0 Monocryl in a subcuticular fashion. The abdomen was then washed and dried and Skin Affix was placed over the incision. The patient tolerated procedure well without any complications and taken to recovery room in stable condition. Anesthesia Type general Estimated Blood Loss Estimated blood loss (mL): minimal Specimens/Packing Specimens Removed hernia sac, cord lipoma right ANSLEY DOTSON DO Apr 21, 2021 08:57
[2021-04-21] MEDS ORDERED: ACHD5005 PO (08:58)
[2021-04-21] MEDS ORDERED: DOCU-143 PO (08:58)
--- NOTE | 2021-04-21 09:00 | Discharge Inst-Simple/Standard ---
Discharge Inst-Standard Discharge Medications New, Converted or Re-Newed RX: Transmitted to Pharmacy Patient Instructions/Follow Up Plan of Care/Instructions/FU: 2-3 weeks Lottie Activity as Tolerated: No Discharge Diet: Regular Diet Other Inst to Patient Follow up Appt: Make appointment for 2-3 weeks. Instructions: No lifting greater than 10 pounds. No strenuous activity. May shower in 24 hours, no tub bath or soaking. Use incentive spirometer at home as directed. No Smoking Skin/Wound Care: You have special glue over your incision that will fall off on it's own. Symptoms to Report: Appetite Changes, Extremity Discoloration, Numbness/Tingling, Swelling Increa sed, Bleeding Excessive, Eyesight Changes, Pain Increased, Urine Color Change, Constipation(Persistent), Fever over 101 degree F, Pain/Pressure in chest, Urinating Difficulty, Cough Up/Vomit Blood, Heart Beat Irreg/Pounding, Pain/Pressure in jaw, Vaginal Bleeding Increase, Cramps in feet or legs, Lightheadedness, Pain/Pressure in shoulder, Diarrhea(Persistent), Memory Changes Suddenly, Questions/Concerns, Weight gain consecutive days, Dizziness/Fainting, Nausea/Vomiting, Shortness of Breath, Weight gain over 2 pounds If questions or concerns contact your physician Or seek help at emergency department. ANSLEY DOTSON DO Apr 21, 2021 08:59
[2021-04-21] MEDS ORDERED: LACTATED RINGERS 1,000 ML IV ONE (09:06)
[2021-04-21] MEDS ORDERED: ONDANSETRON 4 MG/2 ML (SDV) Z0FRAN IVP PRN (09:15)
[2021-04-21] MEDS ORDERED: HYDROmorphone 2 MG/ML VIAL (DILAUDID) IV ONE (09:15)
[2021-04-21] MEDS ORDERED: HYDROcodone/APAP 5 MG/325 MG (LORTAB) TAB ONE (10:10)
[2021-04-21] MEDS ORDERED: HYDROcodone/APAP 5 MG/325 MG (LORTAB) TAB PO ONE (10:15)
--- NOTE | 2021-04-21 13:21 | Anesthesia-General Post-Op ---
General Patient Condition Mental Status/LOC: Same as Preop Cardiovascular: Satisfactory Nausea/Vomiting: Absent Respiratory: Satisfactory Pain: Controlled Complications: Absent Post Op Complications Complications None Follow Up Care/Instructions Patient Instructions None needed. Anesthesia/Patient Condition Patient Condition Patient is doing well, no complaints, stable vital signs, no apparent adverse anesthesia problems. No complications reported per nursing. [place] [facility] [place] Yes COSME HORNE CRNA Apr 21, 2021 13:21
[2021-04-22] MEDS ORDERED: NITR-65 PO (07:40)
[2021-04-22] MEDS ORDERED: TMSL.4C PO (07:40)
== END 2021-04-21 11:45 | disposition home or self-care (01) ==
LOC: SDC 05:57
PROVIDERS: ATTEND Surgery
DX: K40.90 Unilateral inguinal hernia, without obstruction or gangrene, not specified as recurrent (principal); D17.6 Benign lipomatous neoplasm of spermatic cord; I10 Essential (primary) hypertension; I25.10 Atherosclerotic heart disease of native coronary artery without angina pectoris; I73.9 Peripheral vascular disease, unspecified; R06.02 Shortness of breath; N20.0 Calculus of kidney; E11.9 Type 2 diabetes mellitus without complications; E07.9 Disorder of thyroid, unspecified; Z79.899 Other long term (current) drug therapy; Z79.891 Long term (current) use of opiate analgesic; Z79.01 Long term (current) use of anticoagulants; Z79.84 Long term (current) use of oral hypoglycemic drugs; Z87.891 Personal history of nicotine dependence; Z90.49 Acquired absence of other specified parts of digestive tract; Z98.890 Other specified postprocedural states
CPT/HCPCS: 49505; 82947; 87081; C1781

== ENCOUNTER 2021-04-22 06:00 | Emergency (ER) | payer MEDICARE, OTHER ==
[~2021-04-22] VITALS: Ht 188 cm; Wt 106.0 kg
[~2021-04-22 06:00] MED LIST changes: +ACHD5005 PO; +DOCU-143 PO
[2021-04-22 06:34] LABS: BILIRUBIN,URINE NEGATIVE (NEGATIVE); CLARITY,URINE SL CLOUDY; COLOR,URINE YELLOW; GLUCOSE, URINE (UA) NEGATIVE (NEGATIVE); KETONES,URINE NEGATIVE (NEGATIVE); LEUKOCYTE ESTERASE ,URINE NEGATIVE (NEGATIVE); NITRITE,URINE NEGATIVE (NEGATIVE); PROTEIN,URINE 3+ (NEGATIVE)
[2021-04-22 06:35] LABS: BASOPHILS % (AUTO) 0 % (0-10); EOSINOPHILS % (AUTO) 0 % (0-10); HEMOGLOBIN 10.6 g/dL (13.3-17.7)
[2021-04-22 06:37] LABS: HEMATOCRIT 33 % (40-54); LYMPHOCYTES # (AUTO) 1.1 10^3/uL (1.0-4.0); LYMPHOCYTES % (AUTO) 7 % (12-44); MEAN CORPUSCULAR HEMOGLOBIN 30 pg (25-34); MEAN CORPUSCULAR HGB CONC 32 g/dL (32-36); MEAN CORPUSCULAR VOLUME 93 fL (80-99); MONOCYTES # (AUTO) 4.3 10^3/uL (0.0-1.0); MONOCYTES % (AUTO) 27 % (0-12); NEUTROPHILS # (AUTO) 10.3 10^3/uL (1.8-7.8); NEUTROPHILS % (AUTO) 63 % (42-75); PLATELET COUNT 125 10^3/uL (130-400); WHITE BLOOD COUNT 16.4 10^3/uL (4.3-11.0)
[2021-04-22 06:42] LABS: ALBUMIN 3.8 GM/DL (3.2-4.5)
[2021-04-22 06:43] LABS: POTASSIUM 4.7 MMOL/L (3.6-5.0)
[2021-04-22 06:44] LABS: BACTERIA,URINE TRACE /HPF; CALCIUM 8.8 MG/DL (8.5-10.1); WBC,URINE 0-2 /HPF
[2021-04-22 06:45] LABS: AMORPHOUS SEDIMENT,UR FEW AMOR URATES /LPF; GRANULAR CASTS,URINE 0-2 /LPF; HYALINE CASTS, URINE 0-2 /LPF; RENAL EPITHELIAL CELLS,URINE 0-2 /HPF; TOTAL PROTEIN 7.1 GM/DL (6.4-8.2); WHITE BLOOD CELL CASTS, URINE 0-2 /LPF
[2021-04-22 06:47] LABS: BILIRUBIN,TOTAL 2.3 MG/DL (0.1-1.0)
[2021-04-22 06:49] LABS: CREATININE SERUM 2.02 MG/DL (0.60-1.30)
[2021-04-22 07:12] LABS: BAND NEUTROPHILS 3 %; LYMPHOCYTES % (MANUAL) 8 %; MONOCYTES % (MANUAL) 17 %; NEUTROPHILS % (MANUAL) 72 %; POLYCHROMASIA SLIGHT
[2021-04-22 07:13] LABS: ACANTHOCYTES SLIGHT; ELLIPT/OVALOCYTES MODERATE; TEAR DROP CELLS SLIGHT
[2021-04-22] MEDS ORDERED: NS IV 1000 ML 1,000 ML IV SCH (07:15)
[2021-04-22] MEDS ORDERED: TAMSULOSIN 0.4 MG (FLOMAX) CAP PO SCH (07:30)
--- NOTE | 2021-04-22 07:35 | ED Abdominal Pain ---
General Chief Complaint: Post OP Complications/Pain Stated Complaint: INCISION PAIN Nursing Triage Note: brought in by [facility] for c/o lower abdominal pain. s/p right ing. hernia repair 04/21/21. Source of Information: Patient History of Present Illness Date Seen by Provider: Apr 22, 2021 Time Seen by Provider: 06:06 Initial Comments PT ARRIVES VIA EMS FROM HOME--PT LIVES ALONE PT HAD RIGHT INGUINAL HERNIA SURGERY DONE YESTERDAY BY DR. DOTSON STATES HE SAT IN A CHAIR MOST OF THE DAY YESTERDAY, AFTER HE GOT HOME, AND WHEN HE FINALLY GOT UP FROM THE CHAIR, HE HAD PAIN IN RIGHT INGUINAL AREA AT SURGICAL SITE STATES HE HAS BEEN TAKING PAIN PILLS EVERY 2 HOURS WITHOUT RELIEF--LAST DOSE WAS 0500 PT STATES HE HAS BEEN EATING AND DRINKING, BUT NOT MUCH NORMAL PT STATES HE HAS NOT URINATED SINCE BEFORE SURGERY NO BM, BUT IS PASSING GAS NO FEVER NO NAUSEA/VOMITING PT HAS NOT TAKEN ANY OF HIS REGULAR MEDICATIONS YESTERDAY OR TODAY PT HAS NOT TAKEN HIS FLUID PILL FOR SEVERAL DAYS--STATES HE "FORGOT IT" PCP: DR. FREEMAN SURGEON: DR. DOTSON Allergies and Home Medications Allergies Coded Allergies: No Known Drug Allergies (Verified , 04/20/08) Patient Home Medication List Home Medication List Reviewed: Yes Allopurinol (Allopurinol) 100 Mg Tablet, 100 MG PO DAILY, (Reported) Entered as Reported by: PIEDAD CONDE on 04/19/21 1145 Atorvastatin Calcium (Atorvastatin Calcium) 10 Mg Tablet, 10 MG PO HS, (Reported) Entered as Reported by: PIEDAD CONDE on 04/19/21 1145 Carvedilol (Carvedilol) 25 Mg Tablet, 25 MG PO BID, (Reported) Entered as Reported by: DELLA LLANES on 12/23/15 0858 Dabigatran Etexilate Mesylate (Pradaxa) 150 Mg Capsule, 150 MG PO BID, (Reported) Entered as Reported by: ADITYA CASTILLO on 03/20/11 1257 Digoxin (Digitek 250 Mcg) 250 Mcg Tablet, 0.25 MG PO DAILY, (Reported) Entered as Reported by: STANTON SHAW on 03/16/11 1356 Docusate Sodium (Colace) 100 Mg Capsule, 100 MG PO BID Prescribed by: ANSLEY DOTSON on 04/21/21 0858 Furosemide (Furosemide) 40 Mg Tablet, 40 MG PO DAILY, (Reported) Entered as Reported by: PIEDAD CONDE on 04/19/21 1145 Glipizide (Glipizide ER) 5 Mg Tab.er.24, 5 MG PO DAILY, (Reported) Entered as Reported by: PIEDAD CONDE on 04/19/21 1145 Glyburide (Glyburide) 5 Mg Tablet, 5 MG PO DAILY, (Reported) Entered as Reported by: PIEDAD CONDE on 04/19/21 1145 Hydrochlorothiazide (Hydrochlorothiazide) 12.5 Mg Tablet, 12.5 MG PO DAILY, (Reported) Entered as Reported by: ALISTAIR MARTINES on 05/22/13 0843 Hydrocodone/Acetaminophen (Hydrocodone-Acetamin 5-325 mg) 1 Each Tablet, 1 EACH PO Q4H PRN for PAIN-MODERATE (5-7) Prescribed by: ANSLEY DOTSON on 04/21/21 0859 Insulin Glargine,Hum.rec.anlog (Toujezahira Solostar) 300 Unit/1 Ml Insuln.pen, 60 UNIT SQ DAILY, (Reported) Entered as Reported by: PIEDAD CONDE on 04/19/21 1145 Levothyroxine Sodium (Levothyroxine Sodium) 100 Mcg Tablet, 100 MCG PO DAILY, (Reported) Entered as Reported by: DELLA LLANES on 12/23/15 0858 Liraglutide (Victoza 3-Benny) 0.6 Mg/0.1 Ml Pen.injctr, 1.2 MG SQ DAILY, (Reported) Entered as Reported by: DELLA LLANES on 12/23/15 0858 Lisinopril (Prinivil) 10 Mg Tablet, 10 MG PO BID, (Reported) Entered as Reported by: JULIANN BERGERON on 01/31/12 1435 Magnesium Oxide (Magox 400) 400 Mg Tablet, 400 MG PO BID, (Reported) Entered as Reported by: ADITYA CASTILLO on 03/20/11 1257 Nitrofurantoin Monohyd/M-Cryst (Macrobid 100 mg Capsule) 100 Mg Capsule, 1 TAB PO BID Prescribed by: KATHRIN RICHMOND on 04/22/21 0740 [place]-3/Dha/Epa/Fish Oil (Fish Oil 1,000 Mg Softgel) 1 Each Capsule, 1,000 MG PO BID, (Reported) Entered as Reported by: STANTON SHAW on 03/16/11 1356 Potassium Chloride (Potassium Chloride 10 Meq Cap) 10 Meq Capsule.sa, 10 MEQ PO DAILY, (Reported) Entered as Reported by: STANTON SHAW on 03/16/11 1356 Tamsulosin HCl (Flomax) 0.4 Mg Cap, 0.4 MG PO DAILY Prescribed by: KATHRIN RICHMOND on 04/22/21 0740 Tramadol HCl (Tramadol HCl) 50 Mg Tablet, 50 MG PO Q4H PRN for PAIN-MODERATE (5- 7), (Reported) Entered as Reported by: PIEDAD CONDE on 04/19/21 1145 Trazodone HCl (Trazodone HCl) 100 Mg Tablet, 100 MG PO HS, (Reported) Entered as Reported by: PIEDAD CONDE on 04/19/21 1145 Discontinued Medications Allopurinol (Zyloprim) 300 Mg Tab, 300 MG PO DAILY, (Reported) Discontinued Reason: New Order Entered as Reported by: STANTON SHAW on 03/16/11 1356 Atorvastatin Calcium (Atorvastatin Calcium) 20 Mg Tablet, 20 MG PO HS, (Reported) Discontinued Reason: New Order Entered as Reported by: DELLA LLANES on 12/23/15 0858 Cephalexin (Keflex) 500 Mg Capsule, 500 MG PO TID Discontinued Reason: No Longer Taking Prescribed by: DOUGLAS BALLESTEROS on 04/01/19 1056 Cyclobenzaprine Hcl (Cyclobenzaprine Hcl) 10 Mg Tablet, 1 EACH PO Q8HR PRN Discontinued Reason: No Longer Taking Prescribed by: KATHRIN RICHMOND on 05/09/14 1655 Docusate Sodium (Colace) 100 Mg Capsule, 100 MG PO DAILY PRN for CONSTIPATION, (Reported) Discontinued Reason: No Longer Taking Entered as Reported by: ALISTAIR MARTINES on 05/22/13 0843 Insulin Glargine,Hum.rec.anlog (Lantus) 100 Unit/1 Ml Vial, 40 UNIT SQ BID, (Reported) Discontinued Reason: No Longer Taking Entered as Reported by: DELLA LLANES on 12/23/15 0858 Insulin Lispro (Humalog Kwikpen) 100 Unit/1 Ml Insuln.pen, 20 UNIT SQ with lunch and dinne, (Reported) Discontinued Reason: No Longer Taking Entered as Reported by: DELLA LLANES on 12/23/15 0858 Tramadol Hcl (Ultram) 50 Mg Tablet, 50 MG PO Q4H Discontinued Reason: New Order Prescribed by: KATHRIN RICHMOND on 05/09/14 1655 Review of Systems Review of Systems Constitutional: no symptoms reported Respiratory: No Symptoms Reported; Denies Cough, Denies Shortness of Air Cardiovascular: No Symptoms Reported; Denies Chest Pain Gastrointestinal: See HPI; Denies Diarrhea, Denies Nausea, Denies Vomiting Genitourinary: See HPI Musculoskeletal: no symptoms reported Skin: no symptoms reported Psychiatric/Neurological: No Symptoms Reported Endocrine: No Symptoms Reported Hematologic/Lymphatic: No Symptoms Reported Past Ukmdexq-Acfppv-Moomfx Hx Patient Social History Tobacco Use?: Yes Tobacco type used: Cigarettes Smoking Status: Former Smoker (SMOKED 1 PPD SINCE 1968, QUIT 2001) Use of E-Cig and/or Vaping dev: No Substance use?: No Alcohol Use?: Yes Alcohol Frequency: Once in a while Pt feels they are or have been: No Immunizations Up To Date Tetanus Booster (TDap): Less than 5yrs First/Initial COVID19 Vaccinat: 11/16/20 Second COVID19 Vaccination Delio: 12/16/20 Seasonal Allergies Seasonal Allergies: Yes Past Medical History Surgery/Hospitalization HX: RIGHT INGUINAL HERNIA REPAIR 04/21/[address] DOTSON APPENDECTOMY CHOLECYSTECTOMY UMBILICAL HERNA REPAIR CARDIAC CATHS AND PERIPHERAL CATHS--LAST CARDIAC CATH HERE 03/[address] HANNAH CABG 2002 LEFT FEM-POP BYPASS RIGHT LEG ANGIOPLASTY AND STENTING Surgeries: Yes (ABD HERNIA REPAIR, R index finger amputated, Fem POP) Abdominal, Appendectomy, Cardiac, CABG, Gallbladder, Vascular Surgery Respiratory: No Cardiac: Yes (CT X2;CABG-2002; CHF; FEM-POP BYPASS;LEG STENTS;CAROTID DZ) Atrial Fibrillation, Chronic Edema/Swelling, Coronary Artery Disease, Heart Attack, High Cholesterol, Hypertension, Peripheral Vascular Neurological: No Reproductive Disorders: No Sexually Transmitted Disease: No Genitourinary: Yes Kidney Stones Gastrointestinal: Yes Abdominal Hernia Musculoskeletal: Yes Gout Endocrine: Yes Diabetes, Insulin dep, Hypothyroidsim HEENT: Yes (GLASSES, UPPER DENTURE) Hearing Impairment: Denies Cancer: Yes Leukemia Did You Recieve Any Treatments: No Psychosocial: No Integumentary: No Blood Disorders: No Physical Exam Vital Signs Vital Signs - First Documented 04/22/21 06:03 Temp 36.4 Pulse 116 Resp 22 B/P (MAP) 142/113 (123) Pulse Ox 93 O2 Delivery Room Air Capillary Refill : Less Than 3 Seconds Height/Weight/BMI Height: 6'2.00" Weight: 221lbs. 0.0oz. [id number]; 29.00 BMI Method:Stated General Appearance: WD/WN, no apparent distress Respiratory: normal breath sounds, no respiratory distress, no accessory muscle use Cardiovascular: no JVD, no murmur, tachycardia (115) Gastrointestinal: normal bowel sounds, soft, no organomegaly, no pulsatile mass, tenderness (RIGHT INGUINAL AREA OVER INCISION SITE--INCISION LOOKS NORMAL, NO SWELLING, NO BRUSING, NO BLEEDING. ) Extremities: normal range of motion, non-tender, pedal edema (3+ EDEMA BILATERALLY) Back: no CVA tenderness Neurologic/Psychiatric: exceptional needs teacher II-XII nml as tested, no motor/sensory deficits, alert, normal mood/affect, oriented x 3 Skin: normal color, warm/dry Progress/Results/Core Measures Results/Orders Lab Results Laboratory Tests Test 04/22/21 06:20 Range/Units White Blood Count 16.4 H 4.3-11.0 10^3/uL Red Blood Count 3.56 L 4.30-5.52 10^6/uL Hemoglobin 10.6 L 13.3-17.7 g/dL Hematocrit 33 L 40-54 % Mean Corpuscular Volume 93 80-99 fL Mean Corpuscular Hemoglobin 30 25-34 pg Mean Corpuscular Hemoglobin Concent 32 32-36 g/dL Red Cell Distribution Width 16.6 H 10.0-14.5 % Platelet Count 125 L 130-400 10^3/uL Mean Platelet Volume 9.0-12.2 fL Immature Granulocyte % (Auto) 4 % Neutrophils (%) (Auto) 63 42-75 % Lymphocytes (%) (Auto) 7 L 12-44 % Monocytes (%) (Auto) 27 H 0-12 % Eosinophils (%) (Auto) 0 0-10 % Basophils (%) (Auto) 0 0-10 % Neutrophils # (Auto) 10.3 H 1.8-7.8 10^3/uL Lymphocytes # (Auto) 1.1 1.0-4.0 10^3/uL Monocytes # (Auto) 4.3 H 0.0-1.0 10^3/uL Eosinophils # (Auto) 0.0 0.0-0.3 10^3/uL Basophils # (Auto) 0.0 0.0-0.1 10^3/uL Immature Granulocyte # (Auto) 0.6 H 0.0-0.1 10^3/uL Neutrophils % (Manual) 72 % Lymphocytes % (Manual) 8 % Monocytes % (Manual) 17 % Band Neutrophils 3 % Percent Immature Platelet Fraction 15.8 H 0.0-7.6 % Polychromasia SLIGHT Tear Drop Cells SLIGHT Elliptocytes MODERATE Acanthocytes SLIGHT Urine Color YELLOW Urine Clarity SL CLOUDY Urine pH 6.0 5-9 Urine Specific [place] >=1.030 1.016-1.022 Urine Protein 3+ H NEGATIVE Urine Glucose (UA) NEGATIVE NEGATIVE Urine Ketones NEGATIVE NEGATIVE Urine Nitrite NEGATIVE NEGATIVE Urine Bilirubin NEGATIVE NEGATIVE Urine Urobilinogen 0.2 < = 1.0 MG/DL Urine Leukocyte Esterase NEGATIVE NEGATIVE Urine RBC (Auto) 1+ H NEGATIVE Urine RBC 2-5 H /HPF Urine WBC 0-2 /HPF Urine Renal Epithelial Cells 0-2 /HPF Urine Crystals PRESENT H /LPF Urine Amorphous Sediment FEW NIECY URATES H /LPF Urine Bacteria TRACE /HPF Urine Casts PRESENT /LPF Urine Hyaline Casts 0-2 H /LPF Urine Granular Casts 0-2 H /LPF Urine White Blood Cell Casts 0-2 H /LPF Urine Mucus NEGATIVE /LPF Urine Culture Indicated NO Sodium Level 134 L 135-145 MMOL/L Potassium Level 4.7 3.6-5.0 MMOL/L Chloride Level 106 98-107 MMOL/L Carbon Dioxide Level 16 L 21-32 MMOL/L Anion Gap 12 5-14 MMOL/L Blood Urea Nitrogen 30 H 7-18 MG/DL Creatinine 2.02 H 0.60-1.30 MG/DL Estimat Glomerular Filtration Rate 33 BUN/Creatinine Ratio 15 Glucose Level 177 H 70-105 MG/DL Calcium Level 8.8 8.5-10.1 MG/DL Corrected Calcium 9.0 8.5-10.1 MG/DL Total Bilirubin 2.3 H 0.1-1.0 MG/DL Aspartate Amino Transf (AST/SGOT) 16 5-34 U/L Alanine Aminotransferase (ALT/SGPT) 16 0-55 U/L Alkaline Phosphatase 178 H 40-136 U/L Total Protein 7.1 6.4-8.2 GM/DL Albumin 3.8 3.2-4.5 GM/DL My Orders Orders - KATHRIN RICHMOND DO Ed Iv/Invasive Line Start (04/22/21 06:12) Bladder Scan (04/22/21 06:12) Monitor-Rhythm Ecg Trace Only (04/22/21 06:12) Cbc With Automated Diff (04/22/21 06:12) Comprehensive Metabolic Panel (04/22/21 06:12) Ua Culture If Indicated (04/22/21 06:12) Catheter(Urinary) Insert & Ass 03,15 (04/22/21 06:17) Manual Differential (04/22/21 06:20) Ed Iv/Invasive Line Start (04/22/21 07:06) Ns Iv 1000 Ml (Sodium Chloride 0.9%) (04/22/21 07:15) Tamsulosin Capsule (Flomax Capsule) (04/22/21 07:30) Vital Signs/I&O 04/22/21 04/22/21 06:03 08:45 Temp 36.4 Pulse 116 88 Resp 22 16 B/P (MAP) 142/113 (123) 145/97 Pulse Ox 93 98 O2 Delivery Room Air Room Air Blood Pressure Mean: 123 Progress Progress Note : Progress Note BLADDER SCAN 532 ML MCCLELLAN PLACED WITH IMMEDIATE RETURN OF > 600 ML URINE, WITH IMPROVEMENT IN PT'S PAIN GIVEN IV FLUIDS X 1 LITER TOTAL URINE OUTPUT AT DISMISSAL--1000 ML PT STATES HE FEELS MUCH BETTER AT DISMISSAL Departure Communication (Admissions) 6309--SPOKE WITH DR. DOTSON, ADVISES TO START FLOMAX, LEAVE CATHETER IN PLACE AND HAVE PT FOLLOW UP WITH DR. MORALES Impression Primary Impression: Postoperative urinary retention Additional Impressions: DEHYDRATION POST OP Acute on chronic renal insufficiency Disposition: 01 HOME, SELF-CARE Condition: Improved Departure-Patient Inst. Decision time for Depature: 07:30 Referrals: SCOTT FREEMAN MD (PCP/Family) Primary Care Physician Patient Instructions: Dehydration, Adult (DC), How to Care for Your Mcclellan Catheter, Male, Urinary Retention (DC) Add. Discharge Instructions: INCREASE YOUR FLUID INTAKE--WATER, BROTH, JELLO, GATORADE TAKE YOUR PAIN MEDICATION PRESCRIBED TAKE YOUR REGULAR MEDICATIONS PRESCRIBED--DO NOT MISS DOSES OF MEDICATIONS FOLLOW UP WITH DR. MORALES, UROLOGIST, NEXT WEEK FOR FURTHER CARE--CALL TODAY TO MAKE AN APPOINTMENT FOLLOW UP WITH DR. DOTSON NEXT WEEK FOR FURTHER CARE Scripts Nitrofurantoin Monohyd/M-Cryst (Macrobid 100 mg Capsule) 100 Mg Capsule 1 TAB PO BID, #20 CAP Prov: KATHRIN RICHMOND DO 04/22/21 Tamsulosin HCl (Flomax) 0.4 Mg Cap 0.4 MG PO DAILY, #10 CAP Prov: KATHRIN RICHMOND DO 04/22/21 KATHRIN RICHMOND DO Apr 22, 2021 07:35
[2021-04-22] MEDS ORDERED: NITR-65 PO (07:40)
[2021-04-22] MEDS ORDERED: TMSL.4C PO (07:40)
[2021-04-22 08:45] VITALS: BP 145/97
== END 2021-04-22 08:45 | disposition home or self-care (01) ==
LOC: ER 06:01
DX: N99.89 Other postprocedural complications and disorders of genitourinary system (principal); E86.0 Dehydration; I13.0 Hypertensive heart and chronic kidney disease with heart failure and stage 1 through stage 4 chronic kidney disease, or unspecified chronic kidney disease; E11.22 Type 2 diabetes mellitus with diabetic chronic kidney disease; N18.9 Chronic kidney disease, unspecified; I25.2 Old myocardial infarction; I50.9 Heart failure, unspecified; M10.9 Gout, unspecified; I48.91 Unspecified atrial fibrillation; E78.00 Pure hypercholesterolemia, unspecified; E03.9 Hypothyroidism, unspecified; I25.10 Atherosclerotic heart disease of native coronary artery without angina pectoris; Z87.891 Personal history of nicotine dependence; Z79.4 Long term (current) use of insulin; Z79.899 Other long term (current) drug therapy; Z79.890 Hormone replacement therapy; Z79.01 Long term (current) use of anticoagulants
CPT/HCPCS: 36415; 80053; 81000; 85007; 85027

== ENCOUNTER → 2021-07-12 | Outpatient (CLI) | payer MEDICARE, OTHER ==
[~2021-07-12] MED LIST changes: +NITR-65 PO; +TMSL.4C PO
== END ==
LOC: CARD 12:02
PROVIDERS: ATTEND Physician Assistant
DX: I11.9 Hypertensive heart disease without heart failure (principal); I08.3 Combined rheumatic disorders of mitral, aortic and tricuspid valves
CPT/HCPCS: 93306

== ENCOUNTER → 2021-07-12 | Outpatient (CLI) | payer MEDICARE, OTHER ==
--- NOTE | 2021-07-12 12:33 | Diagnostic Imaging Report ---
INDICATION: Hypertension Exam compared with 2 view chest 07/15/2019. Sternal wires midline and intact. The heart size within normal limits stable. No focal pulmonary consolidation. No vascular congestion some mild prominence of the lung markings stable and chronic. No focal pneumonia or camila edema. Some bridging thoracic syndesmophytes anteriorly throughout the thoracic spine. No acute chest wall pathology. IMPRESSION: Stable chronic findings. Dictated by: Dictated on workstation # [id number]
== END ==
LOC: RAD 11:51
PROVIDERS: ATTEND Physician Assistant
DX: I10 Essential (primary) hypertension (principal)
CPT/HCPCS: 71046

== ENCOUNTER → 2021-07-27 | Outpatient (CLI) | payer MEDICARE, OTHER ==
[2021-07-27 15:01] LABS: BASOPHILS % (AUTO) 0 % (0-10); EOSINOPHILS # (AUTO) 0.1 10^3/uL (0.0-0.3); EOSINOPHILS % (AUTO) 1 % (0-10); HEMATOCRIT 32 % (40-54); HEMOGLOBIN 10.2 g/dL (13.3-17.7); LYMPHOCYTES # (AUTO) 1.7 10^3/uL (1.0-4.0); LYMPHOCYTES % (AUTO) 29 % (12-44); MEAN CORPUSCULAR HEMOGLOBIN 28 pg (25-34); MEAN CORPUSCULAR HGB CONC 32 g/dL (32-36); MEAN CORPUSCULAR VOLUME 89 fL (80-99); MEAN PLATELET VOLUME 12.4 fL (9.0-12.2); MONOCYTES # (AUTO) 0.9 10^3/uL (0.0-1.0); MONOCYTES % (AUTO) 15 % (0-12); NEUTROPHILS % (AUTO) 53 % (42-75); PLATELET COUNT 107 10^3/uL (130-400); WHITE BLOOD COUNT 5.8 10^3/uL (4.3-11.0)
[2021-07-27 15:18] LABS: ALBUMIN 3.9 GM/DL (3.2-4.5); CALCIUM 9.1 MG/DL (8.5-10.1); CREATININE SERUM 1.86 MG/DL (0.60-1.30); POTASSIUM 4.7 MMOL/L (3.6-5.0); TOTAL PROTEIN 7.6 GM/DL (6.4-8.2)
== END ==
LOC: ONC 14:51
PROVIDERS: ATTEND Internal Medicine Hematology & Oncology
DX: C93.10 Chronic myelomonocytic leukemia not having achieved remission (principal); D69.6 Thrombocytopenia, unspecified; D63.1 Anemia in chronic kidney disease; I25.10 Atherosclerotic heart disease of native coronary artery without angina pectoris; I12.9 Hypertensive chronic kidney disease with stage 1 through stage 4 chronic kidney disease, or unspecified chronic kidney disease; N18.30 Chronic kidney disease, stage 3 unspecified; E11.9 Type 2 diabetes mellitus without complications; E66.9 Obesity, unspecified; E78.2 Mixed hyperlipidemia; E03.9 Hypothyroidism, unspecified
CPT/HCPCS: 80053; 83615; 85025; G0463; 99213

== ENCOUNTER → 2021-09-05 | Outpatient (CLI) | payer MEDICARE, OTHER ==
[~2021-09-05] MED LIST changes: +CATHETER FLUSH 10 ML SYR IV PRN; +REGADENOSON 0.4 MG/5 ML SYR (LEXISCAN) IV ONE
[2021-09-05 09:14] VITALS: BP 148/72
[2021-09-05 09:16] VITALS: BP 109/70
--- NOTE | 2021-09-05 11:35 | Cardiology Stress Test Report ---
Stress Test Report Date of Procedure/Referring: Date of Procedure: Sep 05, 2021 Elodia Mabry Admitting Physician Scot Suresh MD Indications: CAD Baseline Heart Rate: 57 Baseline Blood Pressure: Blood Pressure Systolic: 109 Blood Pressure Diastolic: 70 Baseline Vitals Vital Signs Date Time Temp Pulse Resp B/P (MAP) Pulse Ox O2 Delivery O2 Flow Rate FiO2 09/05/21 09:14 47 148/72 (97) Room Air 09/05/21 09:16 18 98 Baseline EKG: Baseline EKG: NSR Summary After explaining the procedure to the patient, he signed a consent and then brought to the stress nuclear laboratory. Patient received 0.4 mg Lexiscan for stress test, ECG, heart rate and blood pressure were monitored continuously. Resting and stress dose of radio tracer were injected, imaging was acquired and reviewed in short axis, horizontal long axis and vertical long axis views. TID: 1.08 SSS: 28 SDS: 4 EF: 29 1. Patient tolerated Lexiscan well 2. Fixed defect involving the whole inferior wall and inferoapex and infero septum with subtle reversibility at the inferolateral segment. No significant ischemia was noted. 3. Normal left ventricular size with hypokinesia to akinesia of the inferior wall inferolateral wall and inferoseptum, ejection fraction 29% CHITO HANNAH MD Sep 05, 2021 11:35
== END ==
LOC: CARD 08:00
PROVIDERS: ATTEND Physician Assistant
DX: I25.10 Atherosclerotic heart disease of native coronary artery without angina pectoris (principal)
CPT/HCPCS: 78452; 93017; A9502

== ENCOUNTER 2022-01-25 09:43 | Outpatient (RCR) | payer MEDICARE, OTHER ==
[~2022-01-25 09:43] MED LIST changes: -CATHETER FLUSH 10 ML SYR IV PRN; -REGADENOSON 0.4 MG/5 ML SYR (LEXISCAN) IV ONE
[2022-01-25 10:07] LABS: EOSINOPHILS # (AUTO) 0.1 10^3/uL (0.0-0.3); EOSINOPHILS % (AUTO) 2 % (0-10); HEMATOCRIT 28 % (40-54); HEMOGLOBIN 8.8 g/dL (13.3-17.7); MEAN CORPUSCULAR HGB CONC 31 g/dL (32-36); PLATELET COUNT 65 10^3/uL (130-400)
[2022-01-25 10:09] LABS: BASOPHILS % (AUTO) 1 % (0-10); LYMPHOCYTES # (AUTO) 1.5 10^3/uL (1.0-4.0); LYMPHOCYTES % (AUTO) 28 % (12-44); MEAN CORPUSCULAR HEMOGLOBIN 26 pg (25-34); MEAN CORPUSCULAR VOLUME 84 fL (80-99); MONOCYTES # (AUTO) 0.9 10^3/uL (0.0-1.0); MONOCYTES % (AUTO) 18 % (0-12); NEUTROPHILS # (AUTO) 2.5 10^3/uL (1.8-7.8); NEUTROPHILS % (AUTO) 48 % (42-75); WHITE BLOOD COUNT 5.2 10^3/uL (4.3-11.0)
[2022-01-25 10:30] LABS: ALBUMIN 3.9 GM/DL (3.2-4.5); BILIRUBIN,TOTAL 0.9 MG/DL (0.1-1.0); CALCIUM 8.9 MG/DL (8.5-10.1); CREATININE SERUM 2.28 MG/DL (0.60-1.30)
== END 2022-02-09 | disposition home or self-care (01) ==
LOC: ONC 09:43
PROVIDERS: ATTEND Internal Medicine Hematology & Oncology
DX: C93.10 Chronic myelomonocytic leukemia not having achieved remission (principal)
CPT/HCPCS: 80053; 83615; 85025; G0463; 36415; 99213

== ENCOUNTER → 2022-01-26 | Outpatient (CLI) | payer MEDICARE, OTHER ==
[2022-02-02 15:04] LABS: MISC LAB TEST & RESULT SEE FOOTNOTE
== END ==
LOC: LABNPT 08:58
PROVIDERS: ATTEND Internal Medicine Hematology & Oncology
DX: Z01.89 Encounter for other specified special examinations (principal)
CPT/HCPCS: 82607; 82728; 83540; 83550

== ENCOUNTER → 2022-03-14 | Outpatient (CLI) | payer MEDICARE, OTHER | LOC: CARD 08:31 | PROVIDERS: ATTEND Physician Assistant | DX: I08.3 Combined rheumatic disorders of mitral, aortic and tricuspid valves (principal); I11.9 Hypertensive heart disease without heart failure | CPT/HCPCS: 93306 ==

== ENCOUNTER 2022-03-25 19:41 | Inpatient (IN) | payer MEDICARE, OTHER ==
[~2022-03-25] VITALS: Ht 185.5 cm; Wt 100.6 kg
[2022-03-25] MEDS: FUROSEMIDE 40 MG/4 ML INJ (LASIX) IV SCH (19:00)
[2022-03-25] MEDS ORDERED: NITROGLYCERIN 0.4 MG SL TABS BTL 25'S SL ONE (20:00)
[2022-03-25] MEDS ORDERED: ASPIRIN 81 MG CHEW (CHILDREN'S ASA) ONE (20:00)
[2022-03-25 20:06] LABS: HEMOGLOBIN 7.4 g/dL (13.3-17.7)
[2022-03-25 20:07] LABS: BASOPHILS % (AUTO) 0 % (0-10); EOSINOPHILS # (AUTO) 0.1 10^3/uL (0.0-0.3); EOSINOPHILS % (AUTO) 1 % (0-10); HEMATOCRIT 24 % (40-54); LYMPHOCYTES # (AUTO) 1.3 10^3/uL (1.0-4.0); LYMPHOCYTES % (AUTO) 24 % (12-44); MEAN CORPUSCULAR HEMOGLOBIN 25 pg (25-34); MEAN CORPUSCULAR HGB CONC 31 g/dL (32-36); MEAN CORPUSCULAR VOLUME 82 fL (80-99); MONOCYTES # (AUTO) 1.2 10^3/uL (0.0-1.0); MONOCYTES % (AUTO) 21 % (0-12); NEUTROPHILS # (AUTO) 2.8 10^3/uL (1.8-7.8); NEUTROPHILS % (AUTO) 50 % (42-75); PLATELET COUNT 68 10^3/uL (130-400); WHITE BLOOD COUNT 5.7 10^3/uL (4.3-11.0)
--- NOTE | 2022-03-25 20:12 | ED Chest Pain ---
General Chief Complaint: Chest Pain Stated Complaint: SHERI MIRANDA,HAD 2 PREV HEART ATTACKS Source: patient Exam Limitations: no limitations History of Present Illness Date Seen by Provider: Mar 25, 2022 Time Seen by Provider: 19:45 Initial Comments Patient to ER by private conveyance with chief complaint that since , 2 days ago has been experiencing some chest pain across the front of his chest. He does not have any right now. It waxes and wanes. He had a history of 2 heart attacks and a three-vessel CABG. He is followed by previously Dr. Suresh and now Dr. Max Brenner at [facility]. Dr. Heller is his telesales representative. He had a three-vessel CABG in 1999 [id number]. He is on Pradaxa and not a blood thinner. He states that his symptoms started after Sunday his telesales representative took him off of his Entresto and the carvedilol because he was having problems with his kidney function. He is diabetic but his blood sugars been running anywhere from 100-1 20. He has not been missing any of his medications. He takes Lasix 40 mg 3 times a week. He does not feel like he is any more swollen or edematous in his legs. He does however endorse orthopnea and had to sleep in his recliner last night. Stress test in August by Dr. Heller with an EF of 29% and significant for hypokinesia to akinesia of the inferior and inferior lateral wall and inferoseptum. No significant ischemic changes noted echocardiogram from 10 days ago demonstrated an EF of 25 to 30% with moderate diffuse hypokinesis and akinesis of the apical myocardium. Severe tricuspid regurgitation. Allergies and Home Medications Allergies Coded Allergies: No Known Drug Allergies (Verified , 04/20/08) Patient Home Medication List Home Medication List Reviewed: Yes Allopurinol (Allopurinol) 100 Mg Tablet, 100 MG PO DAILY, (Reported) Entered as Reported by: PIEDAD CONDE on 04/19/21 1145 Atorvastatin Calcium (Atorvastatin Calcium) 10 Mg Tablet, 10 MG PO HS, (Reported) Entered as Reported by: PIEDAD CONDE on 04/19/21 1145 Carvedilol (Carvedilol) 25 Mg Tablet, 25 MG PO BID, (Reported) Entered as Reported by: DELLA LLANES on 12/23/15 0858 Dabigatran Etexilate Mesylate (Pradaxa) 150 Mg Capsule, 150 MG PO BID, (Reported) Entered as Reported by: ADITYA CASTILLO on 03/20/11 1257 Digoxin (Digitek 250 Mcg) 250 Mcg Tablet, 0.25 MG PO DAILY, (Reported) Entered as Reported by: STANTON SHAW on 03/16/11 1356 Docusate Sodium (Colace) 100 Mg Capsule, 100 MG PO BID Prescribed by: ANSLEY DOTSON on 04/21/21 0858 Furosemide (Furosemide) 40 Mg Tablet, 40 MG PO DAILY, (Reported) Entered as Reported by: PIEDAD CONDE on 04/19/21 1145 Glipizide (Glipizide ER) 5 Mg Tab.er.24, 5 MG PO DAILY, (Reported) Entered as Reported by: PIEDAD CONDE on 04/19/21 1145 Glyburide (Glyburide) 5 Mg Tablet, 5 MG PO DAILY, (Reported) Entered as Reported by: PIEDAD CONDE on 04/19/21 1145 Hydrochlorothiazide (Hydrochlorothiazide) 12.5 Mg Tablet, 12.5 MG PO DAILY, (Reported) Entered as Reported by: ALISTAIR MARTINES on 05/22/13 0843 Hydrocodone/Acetaminophen (Hydrocodone-Acetamin 5-325 mg) 1 Each Tablet, 1 EACH PO Q4H PRN for PAIN-MODERATE (5-7) Prescribed by: ANSLEY DOTSON on 04/21/21 0859 Insulin Glargine,Hum.rec.anlog (Toujeo Solostar) 300 Unit/1 Ml Insuln.pen, 60 UNIT SQ DAILY, (Reported) Entered as Reported by: PIEDAD CONDE on 04/19/21 1145 Levothyroxine Sodium (Levothyroxine Sodium) 100 Mcg Tablet, 100 MCG PO DAILY, (Reported) Entered as Reported by: DELLA LLANES on 12/23/15 0858 Liraglutide (Victoza 3-Benny) 0.6 Mg/0.1 Ml Pen.injctr, 1.2 MG SQ DAILY, (Reported) Entered as Reported by: DELLA LLANES on 12/23/15 0858 Lisinopril (Prinivil) 10 Mg Tablet, 10 MG PO BID, (Reported) Entered as Reported by: JULIANN BERGERON on 01/31/12 1435 Magnesium Oxide (Magox 400) 400 Mg Tablet, 400 MG PO BID, (Reported) Entered as Reported by: ADITYA CASTILLO on 03/20/11 1257 Nitrofurantoin Monohyd/M-Cryst (Macrobid 100 mg Capsule) 100 Mg Capsule, 1 TAB PO BID Prescribed by: KATHRIN RICHMOND on 04/22/21 0740 Escalon-3/Dha/Epa/Fish Oil (Fish Oil 1,000 Mg Softgel) 1 Each Capsule, 1,000 MG PO BID, (Reported) Entered as Reported by: STANTON SHAW on 03/16/11 1356 Potassium Chloride (Potassium Chloride 10 Meq Cap) 10 Meq Capsule.sa, 10 MEQ PO DAILY, (Reported) Entered as Reported by: STANTON SHAW on 03/16/11 1356 Tamsulosin HCl (Flomax) 0.4 Mg Cap, 0.4 MG PO DAILY Prescribed by: KATHRIN RICHMOND on 04/22/21 0740 Tramadol HCl (Tramadol HCl) 50 Mg Tablet, 50 MG PO Q4H PRN for PAIN-MODERATE (5- 7), (Reported) Entered as Reported by: PIEDAD CONDE on 04/19/21 1145 Trazodone HCl (Trazodone HCl) 100 Mg Tablet, 100 MG PO HS, (Reported) Entered as Reported by: PIEDAD CONDE on 04/19/21 1145 Review of Systems Review of Systems Constitutional: No chills, No diaphoresis EENTM: No Blurred Vision, No Double Vision Respiratory: Denies Cough, Denies Orthopnea Cardiovascular: Denies Chest Pain, Denies Edema Gastrointestinal: Denies Abdomen Distended, Denies Abdominal Pain Genitourinary: Denies Burning, Denies Discharge Musculoskeletal: No back pain, No gout Skin: No pruritus, No rash Psychiatric/Neurological: Denies Headache, Denies Numbness All Other Systems Reviewed Negative Unless Noted: Yes Past Coybvfd-Jhxvjb-Joxwsf Hx Patient Social History Tobacco Use?: No Use of E-Cig and/or Vaping dev: No Immunizations Up To Date Tetanus Booster (TDap): Less than 5yrs First/Initial COVID19 Vaccinat: 11/16/20 Second COVID19 Vaccination Delio: 12/16/20 Third COVID19 Vaccination Date: Seasonal Allergies Seasonal Allergies: Yes Past Medical History Surgery/Hospitalization HX: RIGHT INGUINAL HERNIA REPAIR 04/21/[address] DOTSON APPENDECTOMY CHOLECYSTECTOMY UMBILICAL HERNA REPAIR CARDIAC CATHS AND PERIPHERAL CATHS--LAST CARDIAC CATH HERE 03/[address] HELLER CABG 2002 LEFT FEM-POP BYPASS RIGHT LEG ANGIOPLASTY AND STENTING Surgeries: Yes (ABD HERNIA REPAIR, R index finger amputated, Fem POP) Abdominal, Appendectomy, Cardiac, CABG, Gallbladder, Vascular Surgery Respiratory: No Cardiac: Yes (MT X2;CABG-2002; CHF; FEM-POP BYPASS;LEG STENTS;CAROTID DZ) Atrial Fibrillation, Chronic Edema/Swelling, Coronary Artery Disease, Heart Attack, High Cholesterol, Hypertension, Peripheral Vascular Neurological: No Reproductive Disorders: No Sexually Transmitted Disease: No Genitourinary: Yes Kidney Stones Gastrointestinal: Yes Abdominal Hernia Musculoskeletal: Yes Gout Endocrine: Yes Diabetes, Insulin dep, Hypothyroidsim HEENT: Yes (GLASSES, UPPER DENTURE) Hearing Impairment: Denies Cancer: Yes Leukemia Did You Recieve Any Treatments: No Psychosocial: No Integumentary: No Blood Disorders: No Physical Exam Vital Signs Vital Signs - First Documented 03/25/22 19:49 Temp 36.7 Pulse 75 Resp 18 B/P (MAP) 115/62 (79) Pulse Ox 98 O2 Delivery Room Air Capillary Refill : Height, Weight, BMI Height: 6'2.00" Weight: 221lbs. 0.0oz. 100.619492no; 29.00 BMI Method:Stated General Appearance: No Apparent Distress, WD/WN HEENT: PERRL/EOMI, Pharynx Normal, Moist Mucous Membranes Neck: Full Range of Motion, Normal Inspection Respiratory: Lungs Clear, Normal Breath Sounds, No Accessory Muscle Use, No Respiratory Distress (95% on room air nonlabored breathing) Cardiovascular: Regular Rate, Rhythm, Normal Peripheral Pulses, Other (Chronic bilateral lower extremity edema) Gastrointestinal: Non Tender, Soft Extremity: Normal Capillary Refill, No Calf Tenderness, Pedal Edema Neurologic/Psychiatric: Alert, Oriented x3, No Motor/Sensory Deficits Skin: Normal Color, Warm/Dry, Ecchymosis (Related to sites of blood draw) Progress/Results/Core Measures Results/Orders Lab Results Laboratory Tests Test 03/25/22 19:54 Range/Units White Blood Count 5.7 4.3-11.0 10^3/uL Red Blood Count 2.93 L 4.30-5.52 10^6/uL Hemoglobin 7.4 L 13.3-17.7 g/dL Hematocrit 24 L 40-54 % Mean Corpuscular Volume 82 80-99 fL Mean Corpuscular Hemoglobin 25 25-34 pg Mean Corpuscular Hemoglobin Concent 31 L 32-36 g/dL Red Cell Distribution Width 18.4 H 10.0-14.5 % Platelet Count 68 L 130-400 10^3/uL Mean Platelet Volume 9.0-12.2 fL Immature Granulocyte % (Auto) 4 % Neutrophils (%) (Auto) 50 42-75 % Lymphocytes (%) (Auto) 24 12-44 % Monocytes (%) (Auto) 21 H 0-12 % Eosinophils (%) (Auto) 1 0-10 % Basophils (%) (Auto) 0 0-10 % Neutrophils # (Auto) 2.8 1.8-7.8 10^3/uL Lymphocytes # (Auto) 1.3 1.0-4.0 10^3/uL Monocytes # (Auto) 1.2 H 0.0-1.0 10^3/uL Eosinophils # (Auto) 0.1 0.0-0.3 10^3/uL Basophils # (Auto) 0.0 0.0-0.1 10^3/uL Immature Granulocyte # (Auto) 0.2 H 0.0-0.1 10^3/uL Percent Immature Platelet Fraction 17.2 H 0.0-7.6 % Prothrombin Time 33.0 H 12.2-14.7 SEC INR Comment 3.2 H 0.8-1.4 Activated Partial Thromboplast Time 100 H 24-35 SEC D-Dimer 0.87 H 0.00-0.49 UG/ML Sodium Level 138 135-145 MMOL/L Potassium Level 4.7 3.6-5.0 MMOL/L Chloride Level 108 H 98-107 MMOL/L Carbon Dioxide Level 17 L 21-32 MMOL/L Anion Gap 13 5-14 MMOL/L Blood Urea Nitrogen 40 H 7-18 MG/DL Creatinine 2.61 H 0.60-1.30 MG/DL Estimat Glomerular Filtration Rate 25 BUN/Creatinine Ratio 15 Glucose Level 175 H 70-105 MG/DL Calcium Level 8.6 8.5-10.1 MG/DL Corrected Calcium 8.6 8.5-10.1 MG/DL Magnesium Level 1.8 1.6-2.4 MG/DL Total Bilirubin 1.5 H 0.1-1.0 MG/DL Aspartate Amino Transf (AST/SGOT) 13 5-34 U/L Alanine Aminotransferase (ALT/SGPT) 20 0-55 U/L Alkaline Phosphatase 154 H 40-136 U/L Myoglobin 92.7 H 10.0-92.0 NG/ML Troponin I 0.070 H <0.028 NG/ML B-Type Natriuretic Peptide 633.2 H <100.0 PG/ML Total Protein 7.1 6.4-8.2 GM/DL Albumin 4.0 3.2-4.5 GM/DL Lipase 52 8-78 U/L My Orders Orders - ELISHA,MARINA J Ekg-Prn For Chest Pain Or Rhyt (03/25/22 19:50) Ekg Tracing (03/25/22 19:56) Cbc With Automated Diff (03/25/22 20:01) Magnesium (03/25/22 20:01) Chest 1 View, Ap/Pa Only (03/25/22 20:01) Comprehensive Metabolic Panel (03/25/22 20:) Myoglobin Serum (03/25/22 20:) Protime With Inr (03/25/22 20:01) Partial Thromboplastin Time (03/25/22 20:01) O2 (03/25/22 20:01) Monitor-Rhythm Ecg Trace Only (03/25/22 20:) Lipid Panel (03/26/22 06:00) Ed Iv/Invasive Line Start (03/25/22 20:01) Bnp Fabian (03/25/22 20:01) Troponin I Meagher (03/25/22 20:01) Aspirin Chewable Tablet (Baby Aspirin Ch (03/25/22 20:15) Aspirin Chewable Tablet (Baby Aspirin Ch (03/25/22 20:00) Nitroglycerin 0.4 Mg Btl 25's (Nitrostat (03/25/22 20:00) Magnesium (03/25/22 20:20) Ct Abdomen/Pelvis Wo (03/25/22 20:59) Fibrin Degradation Products (03/25/22 21:00) Type And Screen (03/25/22 21:13) Occult Blood Stool (03/25/22 21:13) Lipase (03/25/22 21:13) Enoxaparin Injection (Lovenox Injection) (03/25/22 22:00) Carvedilol Tablet (Coreg Tablet) (03/25/22 22:00) Furosemide Injection (Lasix Injection) (03/25/22 22:00) Medications Given in ED Current Medications Medications Dose Ordered Sig/Malena Route Start Time Stop Time Status Last Admin Dose Admin Aspirin 324 mg ONCE ONCE PO 03/25/22 20:15 03/25/22 20:16 DC 03/25/22 20:03 324 MG Vital Signs/I&O 03/25/22 19:49 Temp 36.7 Pulse 75 Resp 18 B/P (MAP) 115/62 (79) Pulse Ox 98 O2 Delivery Room Air Progress Progress Note #1: Time: 20:14 Progress Note Unclear whether his chest pain is related to angina from coronary disease versus heart failure. His EKG does show some minor changes which were seen in the EKG from 2020. We will give him 324 mg of aspirin and check some labs including a BNP and a chest x-ray. Given his echocardiogram and endorsement of orthopnea I am concerned that his having worsening heart failure after being removed from beta-blockers and Entresto. Progress Note #2: Time: 21:12 Progress Note Patient's chest x-ray and labs for heart failure are not that impressive. We will give him a a unit of packed red blood cells. Fecal occult blood test was negative. He relates that he had a colonoscopy 4 or 5 years ago and was told at that time he had no polyps and did not need rescreen for least another 10 years. He says in the last couple days has had some dark black stools. It is unclear the source of his marginally increased bilirubin and his PT/INR. We will get a CT noncontrast of his abdomen to see if we can see any structural abnormalities. He has had his gallbladder out in the past. We will add a lipase as well. Initial ECG Impression Date: Mar 25, 2022 Initial ECG Impression Time: 19:58 Initial ECG Rate: 66 Initial ECG Rhythm: Normal Sinus Initial ECG Intervals: QT (430 ms) Initial ECG Impression: Atrial Fibrillation Initial ECG Comparisson: Unchanged Comment Subtle depression in lead to ST segment. Subtle ST elevation 1/2-1 block in aVR. These changes are seen and an EKG from 2019. No acute ST changes. Diagnostic Imaging Diagonstic Imaging: Xray Plain Films/CT/US/NM/MRI: [facility] [place] [place] NAME: BRISA VASQUEZ [facility] REC#: [id number] PT STATUS: REG ER : 1945 PHYSICIAN: MARINA TELLO MD ADMIT DATE: 03/25/22/ER Signed Date of Exam:03/25/22 CHEST 1 VIEW, AP/PA ONLY INDICATION: Chest pain. EXAMINATION: AP view of the chest was obtained. COMPARISON: Study of 05/22/2013. FINDINGS: Heart size and pulmonary vascularity are at the upper limits of normal. There does appear to be air trapping in the lungs. No pneumothorax or consolidation is seen. There is no significant pleural fluid. IMPRESSION: Heart size and pulmonary vascularity are at the upper limits of normal without other evidence of acute abnormality. Dictated by: Dictated on workstation # [id number] Dict: 03/25/222100 Trans: 03/25/222107 [facility] [id number] Interpreted by: FRANCISCO GARCIA MD Electronically signed by: FRANCISCO GARCIA MD 03/25/222107 Reviewed: Reviewed by Me Diagonstic Imaging: CT Plain Films/CT/US/NM/MRI: abdomen, pelvis Comments [facility] [place] [place] NAME: BRISA VASQUEZ [facility] REC#: [id number] PT STATUS: REG ER : 1945 PHYSICIAN: MARINA TELLO MD ADMIT DATE: 03/25/22/ER Draft Date of Exam:03/25/22 CT ABDOMEN/PELVIS WO PROCEDURE: CT abdomen and pelvis without contrast. TECHNIQUE: Multiple contiguous axial images were obtained through the abdomen and pelvis without the use of intravenous contrast. Auto Exposure Controls were utilized during the CT exam to meet ALARA standards for radiation dose reduction. INDICATION: Hyperbilirubinemia and chest pain. COMPARISON: 07/21/2019. FINDINGS: There appears to be mild scarring in the visualized lung bases. Unenhanced images of the liver are stable and unremarkable. Gallbladder is surgically absent. There does appear to be a persistent cyst in the anterior spleen. Spleen is otherwise unremarkable in appearance. No pancreatic, adrenal gland or hydronephrosis is seen. There is a nonobstructing punctate stone in the lower pole of left kidney. Several left renal cortical cysts are noted. No free fluid is seen in the abdomen although there is mild pelvic free fluid present. There is aortoiliac atherosclerosis similar to previous study. No focal inflammation is identified. IMPRESSION: No evidence of hepatic lesion or biliary ductal dilatation to indicate cause for hyperbilirubinemia. Otherwise findings are generally stable with left nephrolithiasis. Dictated on workstation # [id number] Dict: 03/25/222127 Trans: 03/25/222135 [facility] [id number] Interpreted by: FRANCISCO GARCIA MD Electronically signed by: Reviewed: Reviewed by Me Departure Communication (Admissions) Time/Spoke to Admitting Phy: 22:00 Discussed the case with Dr. Granados who agrees admit the patient with cardiology consult. Time/Spoke to Consulting Phy: 21:45 Discussed the case with Dr. Heller, cardiology who is familiar with the patient. He would like the Coreg restarted at 3.125 mg. He would like a dose of Lovenox given and Lasix 40 mg IV now and twice daily until he sees the patient. He feels that the liver dysfunction is probably due to the congestion secondary to heart failure. Impression Primary Impression: Acute on chronic heart failure Qualified Codes: I50.43 - Acute on chronic combined systolic (congestive) and diastolic (congestive) heart failure Additional Impressions: Acute kidney injury Chest pain Qualified Codes: R07.9 - Chest pain, unspecified Unstable angina IRIS (acute liver failure) Qualified Codes: K72.00 - Acute and subacute hepatic failure without coma Disposition: ADMITTED INPATIENT Condition: Stable Admissions Decision to Admit Reason: Admit from ER (General) Decision to Admit/Date: Mar 25, 2022 Time/Decision to Admit Time: 21:42 Departure-Patient Inst. Referrals: CHITO HELLER MD (PCP/Family) Primary Care Physician MARINA TELLO Mar 25, 2022 20:12
[2022-03-25 20:14] LABS: POTASSIUM 4.7 MMOL/L (3.6-5.0)
[2022-03-25 20:15] LABS: CALCIUM 8.6 MG/DL (8.5-10.1)
[2022-03-25] MEDS ORDERED: ASPIRIN 81 MG CHEW (CHILDREN'S ASA) PO ONE (20:15)
[2022-03-25 20:17] LABS: TOTAL PROTEIN 7.1 GM/DL (6.4-8.2)
[2022-03-25 20:18] LABS: BILIRUBIN,TOTAL 1.5 MG/DL (0.1-1.0); INR 3.2 (0.8-1.4)
[2022-03-25 20:20] LABS: CREATININE SERUM 2.61 MG/DL (0.60-1.30)
[2022-03-25 20:23] LABS: MAGNESIUM 1.8 MG/DL (1.6-2.4)
--- NOTE | 2022-03-25 21:06 | Diagnostic Imaging Report ---
INDICATION: Chest pain. EXAMINATION: AP view of the chest was obtained. COMPARISON: Study of 05/22/2013. FINDINGS: Heart size and pulmonary vascularity are at the upper limits of normal. There does appear to be air trapping in the lungs. No pneumothorax or consolidation is seen. There is no significant pleural fluid. IMPRESSION: Heart size and pulmonary vascularity are at the upper limits of normal without other evidence of acute abnormality. Dictated by: Dictated on workstation # [id number]
--- NOTE | 2022-03-25 21:37 | Diagnostic Imaging Report ---
PROCEDURE: CT abdomen and pelvis without contrast. TECHNIQUE: Multiple contiguous axial images were obtained through the abdomen and pelvis without the use of intravenous contrast. Auto Exposure Controls were utilized during the CT exam to meet ALARA standards for radiation dose reduction. INDICATION: Hyperbilirubinemia and chest pain. COMPARISON: 07/21/2019. FINDINGS: There appears to be mild scarring in the visualized lung bases. Unenhanced images of the liver are stable and unremarkable. Gallbladder is surgically absent. There does appear to be a persistent cyst in the anterior spleen. Spleen is otherwise unremarkable in appearance. No pancreatic, adrenal gland or hydronephrosis is seen. There is a nonobstructing punctate stone in the lower pole of left kidney. Several left renal cortical cysts are noted. No free fluid is seen in the abdomen although there is mild pelvic free fluid present. There is aortoiliac atherosclerosis similar to previous study. No focal inflammation is identified. IMPRESSION: No evidence of hepatic lesion or biliary ductal dilatation to indicate cause for hyperbilirubinemia. Otherwise findings are generally stable with left nephrolithiasis. Dictated by: Dictated on workstation # [id number]
[2022-03-25] MEDS ORDERED: FUROSEMIDE 40 MG/4 ML INJ (LASIX) IVP ONE (22:00)
[2022-03-25] MEDS ORDERED: ENOXAPARIN 100 MG/1 ML (LOVENOX) SYR SC ONE (22:00)
[2022-03-25 23:00] VITALS: BP 127/65
[2022-03-25] MEDS ORDERED: ONDANSETRON 4 MG/2 ML (SDV) Z0FRAN IVP PRN (23:15)
[2022-03-25] MEDS ORDERED: NS IV 500 ML 500 ML IV SCH (23:15)
[2022-03-25] MEDS ORDERED: morphine INJ 4 MG/ML 1 ML (VIAL/SYRINGE) IV PRN (23:15)
[2022-03-25 23:30] VITALS: BP 109/51
[2022-03-25 23:50] VITALS: BP 111/57
[2022-03-26] VITALS (21 sets, daily range): BP systolic 107–134; BP diastolic 51–77
[2022-03-26 02:16] LABS: HEMATOCRIT 25 % (40-54); MEAN CORPUSCULAR VOLUME 82 fL (80-99)
[2022-03-26 02:17] LABS: BASOPHILS % (AUTO) 0 % (0-10); EOSINOPHILS # (AUTO) 0.1 10^3/uL (0.0-0.3); EOSINOPHILS % (AUTO) 1 % (0-10); HEMOGLOBIN 7.7 g/dL (13.3-17.7); LYMPHOCYTES # (AUTO) 1.6 10^3/uL (1.0-4.0); LYMPHOCYTES % (AUTO) 26 % (12-44); MEAN CORPUSCULAR HEMOGLOBIN 25 pg (25-34); MEAN CORPUSCULAR HGB CONC 31 g/dL (32-36); MONOCYTES # (AUTO) 1.3 10^3/uL (0.0-1.0); MONOCYTES % (AUTO) 22 % (0-12); NEUTROPHILS # (AUTO) 2.9 10^3/uL (1.8-7.8); NEUTROPHILS % (AUTO) 47 % (42-75); WHITE BLOOD COUNT 6.1 10^3/uL (4.3-11.0)
[2022-03-26] MEDS: FUROSEMIDE 40 MG/4 ML INJ (LASIX) IV SCH ×3 (02:52→18:00)
[2022-03-26 02:53] LABS: CALCIUM 8.5 MG/DL (8.5-10.1); CREATININE SERUM 2.47 MG/DL (0.60-1.30); POTASSIUM 4.4 MMOL/L (3.6-5.0)
[2022-03-26 02:58] LABS: ATYPICAL LYMPHOCYTES 7 %; LYMPHOCYTES % (MANUAL) 20 %; METAMYELOCYTES % 3 %; MONOCYTES % (MANUAL) 13 %; NEUTROPHILS % (MANUAL) 57 %; PLATELET ESTIMATE DECREASED
[2022-03-26 03:00] LABS: ANISOCYTOSIS SLIGHT; ELLIPT/OVALOCYTES MODERATE; HYPOCHROMASIA SLIGHT; MICROCYTOSIS SLIGHT; PLATELET COUNT 59 10^3/uL (130-400); POIKILOCYTOSIS MODERATE; POLYCHROMASIA SLIGHT
[2022-03-26 03:01] LABS: SCHISTOCYTES MODERATE
[2022-03-26] MEDS: CATHETER FLUSH 10 ML SYR IVP SCH ×3 (05:54→21:24)
[2022-03-26] MEDS: inSUlin ASPART (NovoLOG) 1 UNIT/0.01 ML (CHARGE PER UNIT) SC SCH ×4 (06:00→21:00)
--- NOTE | 2022-03-26 07:36 | Diagnostic Imaging Report ---
EXAMINATION: Chest 1 view HISTORY: Chest pain COMPARISON: 03/25/2022 FINDINGS: Median sternotomy wires are aligned. There are coronary artery bypass graft markers. Heart size is normal. There is pulmonary vascular redistribution. No pleural effusion or pneumothorax. Heart size is normal. IMPRESSION: 1. Pulmonary vascular redistribution. Dictated by: Dictated on workstation # [id number]
[2022-03-26 08:22] LABS: HEMOGLOBIN 7.7 g/dL (13.3-17.7)
[2022-03-26] MEDS ORDERED: DIGOXIN 0.25 MG (LANOXIN) TAB PO SCH (09:00)
[2022-03-26] MEDS ORDERED: ASPIRIN E.C. 81 MG (ECOTRIN) TAB PO SCH (09:00)
[2022-03-26] MEDS ORDERED: DABIGATRAN 150 MG (PRADAXA) CAPSULE PO SCH (09:00)
--- NOTE | 2022-03-26 09:32 | Consultation-Cardiology ---
HPI-Cardiology Cardiology Consultation Date of Consultation 03/26/22 Date of Admission Time Seen by Provider: 09:24 Indication: Congestive heart failure HPI 76-year-old gentleman with history of coronary artery disease, congestive heart failure. Patient has been having increasing pedal edema, had worsening renal failure and hyperkalemia subsequently Entresto and potassium was discontinued. Lasix was decreased. He started to have worsening pedal edema, generalized fatigue, came into the emergency room for evaluation, did not have any active chest pain but has been having worsening pedal edema. Orthopnea. No syncope or near syncopal episodes. Noted to be in atrial fibrillation with bradycardia. Had elevation in troponin level. EKG did not show any acute abnormality. Home Medications & Allergies Allergies: Coded Allergies: No Known Drug Allergies (Verified , 04/20/08) Home Medication List Reviewed: Yes [id number] Hx Patient Social History Marital Status: Employed/Student: retired Smoking Status: Former Smoker 2nd Hand Smoke Exposure: No Recent Hopitalizations: Yes Have you traveled recently?: No Alcohol Use?: Yes Immunizations Up To Date Tetanus Booster (TDap): Less than 5yrs Date of Pneumonia Vaccine: May 22, 2011 Date of Influenza Vaccine: Apr 29, 2014 Past Medical History Discussed below. Family Medical History Family Medical Hx Noncontributory. Review of Systems-General Review of Systems Constitutional: see HPI; No chills, No diaphoresis; malaise, weakness EENTM: see HPI, no symptoms reported Respiratory: see HPI; No cough; dyspnea on exertion; No hemoptysis; orthopnea; No phlegm, No stridor, No wheezing, No other Cardiovascular: see HPI; No chest pain; edema; No Hx of Intervention, No palpitations, No syncope, No vascular heart diseas, No other Gastrointestinal: no symptoms reported, see HPI Genitourinary: no symptoms reported, see HPI Musculoskeletal: see HPI; No back pain, No gout Skin: see HPI; No pruritus, No rash Psychiatric/Neurological: See HPI; Denies Headache, Denies Numbness All Other Systems Reviewed Negative Unless Noted: Yes Reviewed Test Results Reviewed Test Results Lab Laboratory Tests Test 03/25/22 19:54 03/26/22 00:57 03/26/22 02:08 03/26/22 06:11 Range/Units White Blood Count 5.7 6.1 4.3-11.0 10^3/uL Red Blood Count 2.93 L 3.07 L 4.30-5.52 10^6/uL Hemoglobin 7.4 L 7.7 L 13.3-17.7 g/dL Hematocrit 24 L 25 L 40-54 % Mean Corpuscular Volume 82 82 80-99 fL Mean Corpuscular Hemoglobin 25 25 25-34 pg Mean Corpuscular Hemoglobin Concent 31 L 31 L 32-36 g/dL Red Cell Distribution Width 18.4 H 18.1 H 10.0-14.5 % Platelet Count 68 L 59 L 130-400 10^3/uL Mean Platelet Volume 9.0-12.2 fL Immature Granulocyte % (Auto) 4 4 % Neutrophils (%) (Auto) 50 47 42-75 % Lymphocytes (%) (Auto) 24 26 12-44 % Monocytes (%) (Auto) 21 H 22 H 0-12 % Eosinophils (%) (Auto) 1 1 0-10 % Basophils (%) (Auto) 0 0 0-10 % Neutrophils # (Auto) 2.8 2.9 1.8-7.8 10^3/uL Lymphocytes # (Auto) 1.3 1.6 1.0-4.0 10^3/uL Monocytes # (Auto) 1.2 H 1.3 H 0.0-1.0 10^3/uL Eosinophils # (Auto) 0.1 0.1 0.0-0.3 10^3/uL Basophils # (Auto) 0.0 0.0 0.0-0.1 10^3/uL Immature Granulocyte # (Auto) 0.2 H 0.2 H 0.0-0.1 10^3/uL Percent Immature Platelet Fraction 17.2 H 17.3 H 0.0-7.6 % Prothrombin Time 33.0 H 12.2-14.7 SEC INR Comment 3.2 H 0.8-1.4 Activated Partial Thromboplast Time 100 H 24-35 SEC D-Dimer 0.87 H 0.00-0.49 UG/ML Sodium Level 138 140 135-145 MMOL/L Potassium Level 4.7 4.4 3.6-5.0 MMOL/L Chloride Level 108 H 109 H 98-107 MMOL/L Carbon Dioxide Level 17 L 19 L 21-32 MMOL/L Anion Gap 13 12 5-14 MMOL/L Blood Urea Nitrogen 40 H 44 H 7-18 MG/DL Creatinine 2.61 H 2.47 H 0.60-1.30 MG/DL Estimat Glomerular Filtration Rate 25 27 BUN/Creatinine Ratio 15 18 Glucose Level 175 H 73 70-105 MG/DL Calcium Level 8.6 8.5 8.5-10.1 MG/DL Corrected Calcium 8.6 8.5-10.1 MG/DL Magnesium Level 1.8 1.6-2.4 MG/DL Total Bilirubin 1.5 H 0.1-1.0 MG/DL Aspartate Amino Transf (AST/SGOT) 13 5-34 U/L Alanine Aminotransferase (ALT/SGPT) 20 0-55 U/L Alkaline Phosphatase 154 H 40-136 U/L Myoglobin 92.7 H 10.0-92.0 NG/ML Troponin I 0.070 H 0.075 H <0.028 NG/ML B-Type Natriuretic Peptide 633.2 H <100.0 PG/ML Total Protein 7.1 6.4-8.2 GM/DL Albumin 4.0 3.2-4.5 GM/DL Lipase 52 8-78 U/L Glucometer 87 67 L 70-110 MG/DL Neutrophils % (Manual) 57 % Lymphocytes % (Manual) 20 % Monocytes % (Manual) 13 % Metamyelocytes % 3 % Atypical Lymphocytes 7 % Platelet Estimate DECREASED Polychromasia SLIGHT Hypochromasia SLIGHT Poikilocytosis MODERATE Anisocytosis SLIGHT Microcytosis SLIGHT Elliptocytes MODERATE Schistocytes MODERATE Triglycerides Level 38 <150 MG/DL Cholesterol Level 80 < 200 MG/DL LDL Cholesterol Direct 47 1-129 MG/DL VLDL Cholesterol 8 5-40 MG/DL HDL Cholesterol 27 L 40-60 MG/DL Digoxin Level 0.95 0.80-2.00 NG/ML Test 03/26/22 08:11 Range/Units Hemoglobin 7.7 L 13.3-17.7 g/dL Hematocrit 25 L 40-54 % Troponin I 0.068 H <0.028 NG/ML Physical Exam Physical Exam Vital Signs Vital Signs - First Documented 03/25/22 03/26/22 19:49 06:20 Temp 36.7 Pulse 75 Resp 18 B/P (MAP) 115/62 (79) Pulse Ox 98 O2 Delivery Room Air O2 Flow Rate 2.00 Capillary Refill : Less Than 3 Seconds Height, Weight, BMI Height: 6'2.00" Weight: 221lbs. 0.0oz. [id number]; 30.04 BMI Method:Stated General Appearance: No Apparent Distress, WD/WN HEENT: PERRL/EOMI, Pharynx Normal, Moist Mucous Membranes Neck: Full Range of Motion, Normal Inspection Respiratory: Lungs Clear, Normal Breath Sounds, No Accessory Muscle Use, No Respiratory Distress (95% on room air nonlabored breathing) Cardiovascular: Normal Peripheral Pulses, Systolic Murmur, Irregularly Irregular, Other (Chronic bilateral lower extremity edema) Gastrointestinal: Non Tender, Soft Extremity: Normal Capillary Refill, No Calf Tenderness, Pedal Edema Neurologic/Psychiatric: Alert, Oriented x3, No Motor/Sensory Deficits Skin: Normal Color, Warm/Dry, Ecchymosis (Related to sites of blood draw) A/P-Cardiology Admission Diagnosis Congestive heart failure, acute on chronic left ventricular systolic dysfunction Non-ST elevation myocardial infarction Coronary artery disease Acute renal failure Assessment/Plan Congestive heart failure, acute on chronic left ventricular systolic dysfunction Deterioration in ventricular function over the past few months. Ejection fraction 25 to 30%. Maintained on diuretics. I will continue on Lasix. I am planning for JEAN CLAUDE and cardioversion in hopes to improve his cardiac output Patient will need to have an ICD implanted for primary prevention Paroxysmal atrial fibrillation, borderline bradycardic. Maintained on digoxin which will be stopped Has been on Coreg 25 mg twice daily, I will decrease it to 3.125 mg twice daily. Maintained on Pradaxa, reporting that he missed few doses. I am planning for JEAN CLAUDE and electrical cardioversion tomorrow Non-ST elevation myocardial infarction, mild elevation in troponin, no acute ST elevation was noted History of CABG x3 done in September 2002. Cardiac catheterization in 2010 showed patent DUBON to LAD, vein graft to the obtuse marginal branch. Had occluded right coronary artery and the vein graft to the right coronary artery that has been inoperable with collaterals from the left. Recent stress test showed total infarction of the whole inferior wall with small area of ronak-infarct ischemia which is probably the cause of his mild troponin elevation Continue with conservative management. Severe hyperkalemia and worsening renal function. Patient is unable to tolerate CHITO inhibitor and/or ARB Potassium supplement was held while he is receiving diuretics. Stress test done August 2021 showing fixed defect with no reversible ischemia. Moderate to severe mitral regurgitation, severe tricuspid regurgitation. After the cardioversion we will reevaluate the valvular function and consideration for referral for mitral clip and tricuspid clip. Severe pulmonary hypertension with PA pressure 80 to 85 mmHg secondary to heart failure. Extensive peripheral vascular disease. History of multiple interventions done by Dr. Freeman, with last intervention to the right lower extremity in 2011. 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 Normal on the left, slight deterioration compared to the previous study. Asymptomatic. ABDELRAHMAN January 2021 WNL Hypertension, monitor blood pressure at this time. Hyperlipidemia, continue to monitor lipids Mild bilateral carotid stenosis, most recent carotid duplex done in October 2020 History of amiodarone toxicity with thyroid toxicity. On thyroid replacement therapy, not receiving any amiodarone Diabetes mellitus, followed and managed by primary care physician. Acute on chronic renal failure. Worsening renal function. Probably secondary to low cardiac output. Possible improvement after cardioversion Continue to monitor CML, Anemia, Thrombocytopenia, splenomegaly. Patient is being followed by Dr. Mejias. Clinical Quality Measures AMI/AHF: ASA po Prior to arrival: CHITO Dai MD Mar 26, 2022 09:32
[2022-03-26] MEDS ORDERED: PANTOPRAZOLE 40 MG (PROTONIX) TAB PO NR (10:00)
[2022-03-26] MEDS ORDERED: PANTOPRAZOLE 40 MG (PROTONIX) TAB PO SCH (10:00)
--- NOTE | 2022-03-26 10:04 | History & Physical-Hospitalist ---
History of Present Illness HPI/Chief Complaint Patient to ER by private conveyance with chief complaint that since , 2 days ago has been experiencing some chest pain across the front of his chest. He does not have any right now. It waxes and wanes. He had a history of 2 heart attacks and a three-vessel CABG. He is followed by previously Dr. Suresh and now Dr. Max Brenner at [facility]. Dr. Heller is his production machine computer operator. He had a three-vessel CABG in 1999 [id number]. He is on Pradaxa and not a blood thinner. He states that his symptoms started after Sunday his production machine computer operator took him off of his Entresto and the carvedilol because he was having problems with his kidney function. He is diabetic but his blood sugars been running anywhere from 100-1 20. He has not been missing any of his medications. He takes Lasix 40 mg 3 times a week. He does not feel like he is any more swollen or edematous in his legs. He does however endorse orthopnea and had to sleep in his recliner last night. Stress test in August by Dr. Heller with an EF of 29% and significant for hypokinesia to akinesia of the inferior and inferior lateral wall and inferoseptum. No significant ischemic changes noted echocardiogram from 10 days ago demonstrated an EF of 25 to 30% with moderate diffuse hypokinesis and akinesis of the apical myocardium. Severe tricuspid regurgitation. Upon my arrival the patient denied current chest pain sitting upright did not appear to be in acute distress but significant pallor noted. Patient reports he has occasional heartburn that he rarely takes Tums for with no past history of known peptic ulcer disease or GI bleeding. He does report for the last 2 days his stools have been quite dark which is unusual for him. He states that they are black in color but formed. He reports he had an unremarkable colonoscopy roughly 5 years ago. He is noted no bright red blood per rectum denies abdominal pain. Date Seen 03/26/22 Time Seen by a Provider: 08:00 Attending Physician [place] PCP Admitting Physician: Gilbert Granados MD Attending Physician: Gilbert Granados MD Referring Physician Date of Admission Mar 25, 2022 at 22:00 Home Medications & Allergies Home Medications Reviewed patient Home Medication Reconciliation performed by pharmacy medication reconciliations surgery technician and/or nursing. Patients Allergies have been reviewed. Allergies Allergies Coded Allergies No Known Drug Allergies (Verified04/20/08) Past [id number]-[id number] Hx Patient Social History Marrital Status: Employed/Student: retired Tobacco Use?: No Smoking Status: Former Smoker Use of E-Cig and/or Vaping dev: No Substance use?: No Alcohol Use?: Yes Alcohol type: Beer Alcohol Frequency: Rarely Pt feels they are or have been: No Immunizations Up To Date Date of Influenza Vaccine: Apr 29, 2014 First/Initial COVID19 Vaccinat: 11/16/20 Second COVID19 Vaccination Delio: 12/16/20 Tetanus Booster (TDap): Less Than 5 Years Hepatitis A: No Hepatitis B: No Date of Pneumonia Vaccine: May 22, 2011 Seasonal Allergies Seasonal Allergies: Yes Current Status Advance Directives: No Communicates: Verbally Primary Language: Chinese Preferred Spoken Language: Chinese Is interpretation needed?: No Sensory deficits: Vision impairment Implanted or Applied Medical D: Stents Past Medical History Surgeries: Abdominal, Appendectomy, Cardiac, CABG, Gallbladder, Vascular Surgery Atrial Fibrillation, Chronic Edema/Swelling, Coronary Artery Disease, Heart Attack, High Cholesterol, Hypertension, Peripheral Vascular Sexually Transmitted Disease: No Kidney Stones Abdominal Hernia Gout Diabetes, Insulin dep, Hypothyroidsim Hearing Impairment: Denies Leukemia Did You Recieve Any Treatments: No Blood Disorders: No Review of Systems Constitutional: see HPI Physical Exam Physical Exam Vital Signs Vital Signs - First Documented 03/25/22 03/26/22 19:49 06:20 Temp 36.7 Pulse 75 Resp 18 B/P (MAP) 115/62 (79) Pulse Ox 98 O2 Delivery Room Air O2 Flow Rate 2.00 Capillary Refill : Less Than 3 Seconds Height, Weight, BMI Height: 6'2.00" Weight: 221lbs. 0.0oz. 100.374873gl; 30.04 BMI Method:Stated General Appearance: No Apparent Distress, Chronically ill Respiratory: Chest Non Tender, Lungs Clear, Normal Breath Sounds, No Accessory Muscle Use, No Respiratory Distress Cardiovascular: Regular Rate, Rhythm, Systolic Murmur (Somewhat blowing heard best at the left lower sternal border), Irregularly Irregular Gastrointestinal: Normal Bowel Sounds, No Organomegaly, No Pulsatile Mass, Non Tender, Soft Extremity: Other ( 2-3+ edema noted with chronic venous insufficiency change no ulceration patient reports that this is not unusual for him.) Results Results/Procedures Labs Laboratory Tests 03/25/22 19:54 03/26/22 02:08 03/26/22 08:11 Patient resulted labs reviewed. Assessment/Plan Admission Diagnosis 1. Acute on chronic systolic heart failure secondary to combination of ischemic heart disease and atrial fibrillation. Dr. Heller plans likely cardioversion tomorrow. 2. Significant microcytic anemia hemoglobin up slightly today 7.7 compared to yesterday with history compatible with melena most likely indicative of an upper GI bleed. For this reason we will need to hold aspirin we will give IV iron today and consult surgery consideration for endoscopy. Will initiate empiric proton pump inhibitor therapy pantoprazole 40 mg twice daily. 3. Type 2 diabetes bolus therapy and additional sliding scale insulin has been initiated the emergency room we will continue to monitor blood sugars. Admission Status: Inpatient Order (span 2 midnights) Reason for Inpatient Admission: See admission diagnosis. Clinical Quality Measures AMI/AHF: ASA po Prior to arrival: GILBERT Enciso MD Mar 26, 2022 10:03
[2022-03-26] MEDS: IRON SUCROSE 200 MG/10 ML (VENOFER) VIAL IV SCH (10:46)
--- NOTE | 2022-03-26 12:36 | Consultation - Surgery ---
GAVIN HENDRICKS 03/26/22 1236: History of Present Illness History of Present Illness Patient Consulted On(isatu/time) 03/26/22 12:30 Date Seen by Provider: Mar 26, 2022 Time Seen by Provider: 12:00 Reason for Visit: Congestive heart failure History of Present Illness Pt presented to ER yesterday with c/o chest pain for prior 2 days that comes and goes. He has PMH of CAD, CABG, Systolic HF, Diabetes and CML. He reports having dark stools for the prior two days. Denies and nausea, vomiting or bloating. Denies any abdominal pain or distension following meals. No history of PUD. No history of GERD or significant NSAID use. He takes pradaxa and aspirin. Last colonoscopy was about 5 yrs ago and he says they didnt find anything. He had an EGD many years ago and doesnt think they found anything. Allergies and Home Medications Allergies Coded Allergies: No Known Drug Allergies (Verified , 04/20/08) Patient Home Medication List Allopurinol (Allopurinol) 100 Mg Tablet, 100 MG PO DAILY, (Reported) Entered as Reported by: PIEDAD CONDE on 04/19/21 1145 Atorvastatin Calcium (Atorvastatin Calcium) 10 Mg Tablet, 10 MG PO HS, (Reported) Entered as Reported by: PIEDAD CONDE on 04/19/21 1145 Carvedilol (Carvedilol) 25 Mg Tablet, 25 MG PO BID, (Reported) Entered as Reported by: DELLA LLANES on 12/23/15 0858 Dabigatran Etexilate Mesylate (Pradaxa) 150 Mg Capsule, 150 MG PO BID, (Reported) Entered as Reported by: ADITYA CASTILLO on 03/20/11 1257 Digoxin (Digitek 250 Mcg) 250 Mcg Tablet, 0.25 MG PO DAILY, (Reported) Entered as Reported by: STANTON SHAW on 03/16/11 1356 Docusate Sodium (Colace) 100 Mg Capsule, 100 MG PO BID Prescribed by: ANSLEY DOTSON on 04/21/21 0858 Furosemide (Furosemide) 40 Mg Tablet, 40 MG PO DAILY, (Reported) Entered as Reported by: PIEDAD CONDE on 04/19/21 1145 Glipizide (Glipizide ER) 5 Mg Tab.er.24, 5 MG PO DAILY, (Reported) Entered as Reported by: PIEDAD CONDE on 04/19/21 1145 Glyburide (Glyburide) 5 Mg Tablet, 5 MG PO DAILY, (Reported) Entered as Reported by: PIEDAD CONDE on 04/19/21 1145 Hydrochlorothiazide (Hydrochlorothiazide) 12.5 Mg Tablet, 12.5 MG PO DAILY, (Reported) Entered as Reported by: ALISTAIR MARTINES on 05/22/13 0843 Hydrocodone/Acetaminophen (Hydrocodone-Acetamin 5-325 mg) 1 Each Tablet, 1 EACH PO Q4H PRN for PAIN-MODERATE (5-7) Prescribed by: ANSLEY DOTSON on 04/21/21 0859 Insulin Glargine,Hum.rec.anlog (Toujeo Solostar) 300 Unit/1 Ml Insuln.pen, 60 UNIT SQ DAILY, (Reported) Entered as Reported by: PIEDAD CONDE on 04/19/21 1145 Levothyroxine Sodium (Levothyroxine Sodium) 100 Mcg Tablet, 100 MCG PO DAILY, (Reported) Entered as Reported by: DELLA LLANES on 12/23/15 0858 Liraglutide (Victoza 3-Benny) 0.6 Mg/0.1 Ml Pen.injctr, 1.2 MG SQ DAILY, (Reported) Entered as Reported by: DELLA LLANES on 12/23/15 0858 Lisinopril (Prinivil) 10 Mg Tablet, 10 MG PO BID, (Reported) Entered as Reported by: JULIANN BERGERON on 01/31/12 1435 Magnesium Oxide (Magox 400) 400 Mg Tablet, 400 MG PO BID, (Reported) Entered as Reported by: ADITYA CASTILLO on 03/20/11 1257 Nitrofurantoin Monohyd/M-Cryst (Macrobid 100 mg Capsule) 100 Mg Capsule, 1 TAB PO BID Prescribed by: KATHRIN RICHMOND on 04/22/21 0740 [place]-3/Dha/Epa/Fish Oil (Fish Oil 1,000 Mg Softgel) 1 Each Capsule, 1,000 MG PO BID, (Reported) Entered as Reported by: STANTON SHAW on 03/16/11 1356 Potassium Chloride (Potassium Chloride 10 Meq Cap) 10 Meq Capsule.sa, 10 MEQ PO DAILY, (Reported) Entered as Reported by: STANTON SHAW on 03/16/11 1356 Tamsulosin HCl (Flomax) 0.4 Mg Cap, 0.4 MG PO DAILY Prescribed by: KATHRIN RICHMOND on 04/22/21 0740 Tramadol HCl (Tramadol HCl) 50 Mg Tablet, 50 MG PO Q4H PRN for PAIN-MODERATE (5- 7), (Reported) Entered as Reported by: PIEDAD CONDE on 04/19/21 1145 Trazodone HCl (Trazodone HCl) 100 Mg Tablet, 100 MG PO HS, (Reported) Entered as Reported by: PIEDAD CONDE on 04/19/21 1145 Past Cyloyaf-Hxkohc-Neyqfq Hx Patient Social History Smoking Status: Former Smoker (33yrs, quit in 1999) Former Smoker, Quit: Apr 19, 2001 2nd Hand Smoke Exposure: No Recent Hopitalizations: Yes Alcohol Use?: No Have you traveled recently?: No Immunizations Up To Date Tetanus Booster (TDap): Less than 5yrs Date of Pneumonia Vaccine: May 22, 2011 Date of Influenza Vaccine: Apr 29, 2014 Seasonal Allergies Seasonal Allergies: Yes Surgeries History of Surgeries: Yes (ABD HERNIA REPAIR, R index finger amputated, Fem POP) Surgeries: Abdominal, Appendectomy, Cardiac, CABG, Gallbladder, Vascular Surg saad Respiratory History of Respiratory Disorde: No Cardiovascular History of Cardiac Disorders: Yes ([place] X2;CABG-2002; CHF; FEM-POP BYPASS;LEG STENTS;CAROTID DZ) Cardiac Disorders: Atrial Fibrillation, Chronic Edema/Swelling, Coronary Artery Disease, Heart Attack, High Cholesterol, Hypertension, Peripheral Vascular Neurological History of Neurological Disord: No Reproductive System Hx Reproductive Disorders: No Sexually Transmitted Disease: No Genitourinary History of Genitourinary Disor: Yes Genitourinary Disorders: Kidney Stones Gastrointestinal History of Gastrointestinal Di: Yes Gastrointestinal Disorders: Abdominal Hernia Musculoskeletal History of Musculoskeletal Dis: Yes Musculoskeletal Disorders: Gout Endocrine History of Endocrine Disorders: Yes Endocrine Disorders: Diabetes, Insulin dep, Hypothyroidsim HEENT History of HEENT Disorders: Yes (GLASSES, UPPER DENTURE) Hearing Impairment: Denies Cancer History of Cancer: Yes Cancer: Leukemia Psychosocial History of Psychiatric Problem: No Integumentary History of Skin or Integumenta: No Blood Transfusions History of Blood Disorders: No Family Medical History Significant Family History: Stroke (dad) Review of Systems-General Constitutional: No chills, No diaphoresis Respiratory: No cough Cardiovascular: chest pain Gastrointestinal: No abdominal pain, No constipation, No diarrhea; melena Physical Exam-General Problems Physical Exam Vital Signs Vital Signs - First Documented 03/25/22 03/26/22 19:49 06:20 Temp 36.7 Pulse 75 Resp 18 B/P (MAP) 115/62 (79) Pulse Ox 98 O2 Delivery Room Air O2 Flow Rate 2.00 Capillary Refill : Less Than 3 Seconds General Appearance: WD/WN, no apparent distress HEENT: PERRL/EOMI Neck: normal inspection Respiratory: lungs clear, normal breath sounds, no respiratory distress, no accessory muscle use Cardiovascular: irregularly irregular Gastrointestinal: normal bowel sounds, non tender, soft Extremities: normal inspection, pedal edema (2+ b/l LE), other (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) Neurologic/Psychiatric: alert, normal mood/affect, oriented x 3 Skin: normal color, warm/dry Lymphatic: no adenopathy Data Review Labs Laboratory Tests 03/25/22 19:54: White Blood Count 5.7, Red Blood Count 2.93L, Hemoglobin 7.4L, Hematocrit 24L, Mean Corpuscular Volume 82, Mean Corpuscular Hemoglobin 25, Mean Corpuscular Hemoglobin Concent 31L, Red Cell Distribution Width 18.4H, Platelet Count 68L, Mean Platelet Volume , Immature Granulocyte % (Auto) 4, Neutrophils (%) (Auto) 50, Lymphocytes (%) (Auto) 24, Monocytes (%) (Auto) 21H, Eosinophils (%) (Auto) 1, Basophils (%) (Auto) 0, Neutrophils # (Auto) 2.8, Lymphocytes # (Auto) 1.3, Monocytes # (Auto) 1.2H, Eosinophils # (Auto) 0.1, Basophils # (Auto) 0.0, Immature Granulocyte # (Auto) 0.2H, Percent Immature Platelet Fraction 17.2H, Prothrombin Time 33.0H, INR Comment 3.2H, Activated Partial Thromboplast Time 100H, D-Dimer 0.87H, Sodium Level 138, Potassium Level 4.7, Chloride Level 108H, Carbon Dioxide Level 17L, Anion Gap 13, Blood Urea Nitrogen 40H, Creatinine 2.61H, Estimat Glomerular Filtration Rate 25, BUN/Creatinine Ratio 15, Glucose Level 175H, Calcium Level 8.6, Corrected Calcium 8.6, Magnesium Level 1.8, Total Bilirubin 1.5H, Aspartate Amino Transf (AST/SGOT) 13, Alanine Aminotransferase (ALT/SGPT) 20, Alkaline Phosphatase 154H, Myoglobin 92.7H, Troponin I 0.070H, B- Type Natriuretic Peptide 633.2H, Total Protein 7.1, Albumin 4.0, Lipase 52 03/26/22 00:57: Glucometer 87 03/26/22 02:08: White Blood Count 6.1, Red Blood Count 3.07L, Hemoglobin 7.7L, Hematocrit 25L, Mean Corpuscular Volume 82, Mean Corpuscular Hemoglobin 25, Mean Corpuscular He moglobin Concent 31L, Red Cell Distribution Width 18.1H, Platelet Count 59L, Mean Platelet Volume , Immature Granulocyte % (Auto) 4, Neutrophils (%) (Auto) 47, Lymphocytes (%) (Auto) 26, Monocytes (%) (Auto) 22H, Eosinophils (%) (Auto) 1, Basophils (%) (Auto) 0, Neutrophils # (Auto) 2.9, Lymphocytes # (Auto) 1.6, Monocytes # (Auto) 1.3H, Eosinophils # (Auto) 0.1, Basophils # (Auto) 0.0, Immature Granulocyte # (Auto) 0.2H, Percent Immature Platelet Fraction 17.3H, Sodium Level 140, Potassium Level 4.4, Chloride Level 109H, Carbon Dioxide Level 19L, Anion Gap 12, Blood Urea Nitrogen 44H, Creatinine 2.47H, Estimat Glomerular Filtration Rate 27, BUN/Creatinine Ratio 18, Glucose Level 73, Calcium Level 8.5, Troponin I 0.075H, Neutrophils % (Manual) 57, Lymphocytes % (Manual) 20, Monocytes % (Manual) 13, Metamyelocytes % 3, Atypical Lymphocytes 7, Platelet Estimate DECREASED, Polychromasia SLIGHT, Hypochromasia SLIGHT, Poikilocytosis MODERATE, Anisocytosis SLIGHT, Microcytosis SLIGHT, Elliptocytes MODERATE, Schistocytes MODERATE, Triglycerides Level 38, Cholesterol Level 80, LDL Cholesterol Direct 47, VLDL Cholesterol 8, HDL Cholesterol 27L, Digoxin Level 0.95 03/26/22 06:11: Glucometer 67L 03/26/22 08:11: Hemoglobin 7.7L, Hematocrit 25L, Troponin I 0.068H 03/26/22 10:00: Stool Occult Blood Immunoassay NEGATIVE 03/26/22 10:52: Glucometer 98 Assessment/Plan Assessment/Plan Assessment/Plan NSTEMI Acute on Chronic systolic HF Afib Anemia, possible UGI bleed - Dr. Heller plans to perform JEAN CLAUDE and cardioversion tomorrow. - Negative fecal occult blood test today. Hemoglobin increased from 7.4 yesterday to 7.7 today. Anticoagulation is being held. Patient is stable and it seems likely the bleeding has stopped for now. Recommend pt has EGD tomorrow to check for any obvious source of bleeding. CML Diabetes CAD Clinical Quality Measures AMI/AHF: ASA po Prior to arrival: AUGUSTIN Quintero DO 03/26/22 1442: History of Present Illness History of Present Illness Time Seen by Provider: 12:27 History of Present Illness Surgery asked to consult regarding Anemia and melena. HPI per IM: Upon my arrival the patient denied current chest pain sitting upright did not appear to be in acute distress but significant pallor noted. Patient reports he has occasional heartburn that he rarely takes Tums for with no past history of known peptic ulcer disease or GI bleeding. He does report for the last 2 days his stools have been quite dark which is unusual for him. He states that they are black in color but formed. He reports he had an unremarkable colonoscopy roughly 5 years ago. He is noted no bright red blood per rectum denies abdominal pain. When I spoke to pt he denies hematemesis and stated he thought he had upper scope about 5 yrs ago; nothing found at that time. Pt is on blood thinners, thinks he may have been told before that he was anemic. Nothing found during colonoscopy. He does take Tums occasionally. Allergies and Home Medications Allergies Coded Allergies: No Known Drug Allergies (Verified , 04/20/08) Patient Home Medication List Home Medication List Reviewed: Yes Allopurinol (Allopurinol) 100 Mg Tablet, 100 MG PO DAILY, (Reported) Entered as Reported by: PIEDAD CONDE on 04/19/21 1145 Atorvastatin Calcium (Atorvastatin Calcium) 10 Mg Tablet, 10 MG PO HS, (Reported) Entered as Reported by: PIEDAD CONDE on 04/19/21 1145 Carvedilol (Carvedilol) 25 Mg Tablet, 25 MG PO BID, (Reported) Entered as Reported by: DELLA LLANES on 12/23/15 0858 Dabigatran Etexilate Mesylate (Pradaxa) 150 Mg Capsule, 150 MG PO BID, (Reported) Entered as Reported by: ADITYA CASTILLO on 03/20/11 1257 Digoxin (Digitek 250 Mcg) 250 Mcg Tablet, 0.25 MG PO DAILY, (Reported) Entered as Reported by: STANTON SHAW on 03/16/11 1356 Docusate Sodium (Colace) 100 Mg Capsule, 100 MG PO BID Prescribed by: ANSLEY DOTSON on 04/21/21 0858 Furosemide (Furosemide) 40 Mg Tablet, 40 MG PO DAILY, (Reported) Entered as Reported by: PIEDAD CONDE on 04/19/21 1145 Glipizide (Glipizide ER) 5 Mg Tab.er.24, 5 MG PO DAILY, (Reported) Entered as Reported by: PIEDAD CONDE on 04/19/21 1145 Glyburide (Glyburide) 5 Mg Tablet, 5 MG PO DAILY, (Reported) Entered as Reported by: PIEDAD CONDE on 04/19/21 1145 Hydrochlorothiazide (Hydrochlorothiazide) 12.5 Mg Tablet, 12.5 MG PO DAILY, ( Reported) Entered as Reported by: ALISTAIR MARTINES on 05/22/13 0843 Hydrocodone/Acetaminophen (Hydrocodone-Acetamin 5-325 mg) 1 Each Tablet, 1 EACH PO Q4H PRN for PAIN-MODERATE (5-7) Prescribed by: ANSLEY DOTSON on 04/21/21 0859 Insulin Glargine,Hum.rec.anlog (Toujeo Solostar) 300 Unit/1 Ml Insuln.pen, 60 UNIT SQ DAILY, (Reported) Entered as Reported by: PIEDAD CONDE on 04/19/21 1145 Levothyroxine Sodium (Levothyroxine Sodium) 100 Mcg Tablet, 100 MCG PO DAILY, (Reported) Entered as Reported by: DELLA LALNES on 12/23/15 0858 Liraglutide (Victoza 3-Benny) 0.6 Mg/0.1 Ml Pen.injctr, 1.2 MG SQ DAILY, (Reported) Entered as Reported by: DELLA LLANES on 12/23/15 0858 Lisinopril (Prinivil) 10 Mg Tablet, 10 MG PO BID, (Reported) Entered as Reported by: JULIANN BERGERON on 01/31/12 1435 Magnesium Oxide (Magox 400) 400 Mg Tablet, 400 MG PO BID, (Reported) Entered as Reported by: ADITYAROSENDO CASTILLO on 03/20/11 1257 Nitrofurantoin Monohyd/M-Cryst (Macrobid 100 mg Capsule) 100 Mg Capsule, 1 TAB PO BID Prescribed by: KATHRIN RICHMOND on 04/22/21 0740 [place]-3/Dha/Epa/Fish Oil (Fish Oil 1,000 Mg Softgel) 1 Each Capsule, 1,000 MG PO BID, (Reported) Entered as Reported by: STANTON SHAW on 03/16/11 1356 Potassium Chloride (Potassium Chloride 10 Meq Cap) 10 Meq Capsule.sa, 10 MEQ PO DAILY, (Reported) Entered as Reported by: STANTON SHAW on 03/16/11 1356 Tamsulosin HCl (Flomax) 0.4 Mg Cap, 0.4 MG PO DAILY Prescribed by: KATHRIN RICHMOND on 04/22/21 0740 Tramadol HCl (Tramadol HCl) 50 Mg Tablet, 50 MG PO Q4H PRN for PAIN-MODERATE (5- 7), (Reported) Entered as Reported by: PIEDAD CONDE on 04/19/21 1145 Trazodone HCl (Trazodone HCl) 100 Mg Tablet, 100 MG PO HS, (Reported) Entered as Reported by: PIEDAD CONDE on 04/19/21 1145 Past Vsqyikk-Fmfuvq-Wuywlg Hx Patient Social History Smoking Status: Former Smoker (33yrs, quit in 1999) Alcohol Use?: No Surgeries History of Surgeries: Yes Surgeries: Appendectomy, CABG, Gallbladder, Vascular Surgery Respiratory History of Respiratory Disorde: No Cardiovascular History of Cardiac Disorders: Yes Cardiac Disorders: Atrial Fibrillation, Chronic Edema/Swelling, Coronary Artery Disease, Heart Attack, High Cholesterol, Hypertension Neurological History of Neurological Disord: No Reproductive System Hx Reproductive Disorders: No Genitourinary History of Genitourinary Disor: No Gastrointestinal History of Gastrointestinal Di: Yes Gastrointestinal Disorders: Abdominal Hernia, Gastroesophageal Reflux, Gastrointestinal Bleed, Gall Bladder Disease Musculoskeletal History of Musculoskeletal Dis: Yes Musculoskeletal Disorders: Gout Endocrine History of Endocrine Disorders: Yes Endocrine Disorders: Diabetes, Insulin dep, Hypothyroidsim HEENT History of HEENT Disorders: Yes (glasses and dentures) Hearing Impairment: Denies Cancer History of Cancer: Yes Cancer: Leukemia Psychosocial History of Psychiatric Problem: No Integumentary History of Skin or Integumenta: No Blood Transfusions History of Blood Disorders: No Family Medical History Significant Family History: Stroke (dad) Review of Systems-General Constitutional: No chills, No diaphoresis; weakness EENTM: No blurred vision, No double vision, No epistaxis Respiratory: No cough, No phlegm Cardiovascular: chest pain, Hx of Intervention, palpitations Gastrointestinal: No abdominal pain, No constipation, No diarrhea; melena Genitourinary: No dysuria, No frequency, No hematuria Musculoskeletal: gout; No muscle pain, No muscle cramps Skin: No change in color, No change in hair/nails Psychiatric/Neurological: Denies Anxiety, Denies Depressed, Denies Seizure, Denies Tremors Physical Exam-General Problems Physical Exam General Appearance: WD/WN, no apparent distress Eyes: Bilateral Eye PERRL, Bilateral Eye EOMI HEENT: pharynx normal; No scleral icterus (R), No scleral icterus (L) Neck: non-tender, supple Respiratory: lungs clear, normal breath sounds, no respiratory distress, no accessory muscle use Cardiovascular: systolic murmur, irregularly irregular Gastrointestinal: normal bowel sounds, non tender, soft, no organomegaly Rectal: deferred Back: no CVA tenderness, no vertebral tenderness Extremities: pedal edema (2+ b/l LE), other (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 Heller plans to perform JEAN CLAUDE and cardioversion tomorrow. - Negative fecal occult blood test today. Hemoglobin increased from 7.4 yesterday to 7.7 today. Anticoagulation is being held. Patient is stable and it seems likely the bleeding has stopped for now. Recommend pt has EGD tomorrow to check for any obvious source of bleeding. -Discussed the procedure with pt; risks and complications not limited to pain, worsening of bleeding because he is on blood thinners, infection, esophageal perforation. All questions answered to his satisfaction. NSTEMI Acute on Chronic systolic HF Afib CML - could be cause of anemia Diabetes CAD Supervisory-Addendum Brief Verification & Attestation Participated in pt care: history, MDM, physical Personally performed: exam, history, MDM, supervision of care Care discussed with: Medical Student Procedures: n/a Verification and Attestation of Medical Student E/M Service A medical student performed and documented this service. I then reviewed and verified all information documented by the medical student and made zia fications to such information, when appropriate. I personally performed a physical exam, medical decision making and then discussed any differences between the notes and made revisions as necessary to create one note. Augustin Aj , 03/26/22 , 14:50 GAVIN HENDRICKS Mar 26, 2022 12:36 AUGUSTIN AJ DO Mar 26, 2022 14:42
[2022-03-26] MEDS: TAMSULOSIN 0.4 MG (FLOMAX) CAP PO SCH (17:58)
[2022-03-26] MEDS: PANTOPRAZOLE 40 MG (PROTONIX) TAB PO SCH (21:08)
[2022-03-27] VITALS (12 sets, daily range): BP systolic 106–131; BP diastolic 56–86
[2022-03-27] MEDS: inSUlin ASPART (NovoLOG) 1 UNIT/0.01 ML (CHARGE PER UNIT) SC SCH ×4 (06:11→20:32)
[2022-03-27] MEDS: FUROSEMIDE 40 MG/4 ML INJ (LASIX) IV SCH ×2 (06:11→18:22)
[2022-03-27] MEDS: CATHETER FLUSH 10 ML SYR IVP SCH ×3 (06:11→22:00)
--- NOTE | 2022-03-27 07:46 | Progress Note - Surgery ---
MALIKA PARISH 03/27/22 0746: Subjective Date Seen by a Provider: Mar 27, 2022 Time Seen by a Provider: 07:42 Subjective/Events-last exam Pt resting comfortably. States he woke with a heavy sensation over his chest, but notes this usually happens when he gets too cold. He currently has no chest pain at this time. He has no abdominal pain, n/v, or blood in stool. States he is urinating normally and is NPO. He has no complaints at this time. Review of Systems General: No Chills, No Night Sweats Pulmonary: No Dyspnea, No Cough Cardiovascular: No: Chest Pain Gastrointestinal: No: Nausea, Vomiting, Abdominal Pain, Diarrhea Genitourinary: No Retention Neurological: No: Confusion Objective Exam Vital Signs Date Time Temp Pulse Resp B/P (MAP) Pulse Ox O2 Delivery O2 Flow Rate FiO2 03/27/22 07:05 51 03/27/22 06:20 Nasal Cannula 2.00 03/27/22 04:00 56 13 116/69 (85) 100 Nasal Cannula 2.00 03/27/22 03:55 36.8 Nasal Cannula 2.00 03/27/22 02:20 Nasal Cannula 2.00 03/27/22 01:00 54 03/27/22 00:00 36.6 Nasal Cannula 2.00 03/27/22 00:00 55 14 127/56 (79) 89 Room Air 03/26/22 21:44 Nasal Cannula 2.00 03/26/22 19:27 36.2 53 25 134/57 (82) 98 Room Air 03/26/22 19:00 58 03/26/22 17:42 Nasal Cannula 2.00 03/26/22 16:00 36.2 55 15 127/67 (87) 97 Room Air 03/26/22 13:58 Nasal Cannula 2.00 03/26/22 12:56 77 03/26/22 12:00 76 22 123/58 (79) 99 Room Air 03/26/22 12:00 36.5 03/26/22 09:33 Nasal Cannula 2.00 03/26/22 09:26 76 123/74 (90) 03/26/22 08:00 46 36 124/69 (87) 97 Room Air 03/26/22 07:47 36.0 I & O 03/27/22 07:00 Intake Total 1900 ml Output Total 3150 ml Balance -1250 ml Capillary Refill : Less Than 3 Seconds General Appearance: No Apparent Distress, WD/WN, Chronically ill HEENT: PERRL/EOMI, Pharynx Normal, Moist Mucous Membranes Neck: Full Range of Motion, Normal Inspection, Supple Respiratory: Lungs Clear, Normal Breath Sounds, No Accessory Muscle Use, No R espiratory Distress Cardiovascular: Regular Rate, Rhythm, No Murmur, Normal Peripheral Pulses, Systolic Murmur (Somewhat blowing heard best at the left lower sternal border), Irregularly Irregular Peripheral Pulses: 2+ Radial Pulses (R), 2+ Radial Pulses (L) Gastrointestinal: normal bowel sounds, non tender, soft, no organomegaly Extremity: No Calf Tenderness, No Pedal Edema, Other ( 2-3+ edema noted with chronic venous insufficiency change no ulceration patient reports that this is not unusual for him.) Neurologic/Psychiatric: Alert, Oriented x3, No Motor/Sensory Deficits Skin: Normal Color, Warm/Dry, Ecchymosis (Related to sites of blood draw) Lymphatic: No Adenopathy Results Lab Laboratory Tests 03/26/22 08:11: Hemoglobin 7.7L, Hematocrit 25L, Troponin I 0.068H 03/26/22 10:00: Stool Occult Blood Immunoassay NEGATIVE 03/26/22 10:52: Glucometer 98 03/26/22 16:10: Glucometer 104 03/26/22 20:11: Glucometer 116H 03/27/22 06:10: Glucometer 118H Assessment/Plan Assessment/Plan Assessment/Plan Anemia, possible UGI bleed - Dr. Heller plans to perform JEAN CLAUDE and cardioversion today. - Negative fecal occult blood test today. Hemoglobin increased from to 7.7 yesterday. Anticoagulation is being held. Patient is stable and it seems likely the bleeding has stopped for now. Morning labs pending at this time. Recommend pt has EGD today to check for any obvious source of bleeding. -Discussed the procedure with pt; risks and complications not limited to pain, worsening of bleeding because he is on blood thinners, infection, esophageal perforation. All questions answered to his satisfaction. NSTEMI Acute on Chronic systolic HF Afib CML - could be cause of anemia Diabetes CAD Clinical Quality Measures AMI/AHF: ASA po Prior to arrival: JD Quintero DO 03/27/22 1156: Subjective Time Seen by a Provider: 11:25 Subjective/Events-last exam Pt seen and examined, he had JEAN CLAUDE today and a clot was found. Dr. Heller does not think he is bleeding and wanted to put him on some blood thinners. Pt has not complaints. Review of Systems General: No Chills, No Night Sweats Pulmonary: No Dyspnea, No Cough Cardiovascular: No: Chest Pain Gastrointestinal: No: Nausea, Vomiting, Abdominal Pain, Diarrhea Neurological: No: Confusion Objective Exam General Appearance: No Apparent Distress, WD/WN HEENT: PERRL/EOMI, Moist Mucous Membranes Respiratory: Lungs Clear, Normal Breath Sounds, No Accessory Muscle Use, No Respiratory Distress Cardiovascular: Systolic Murmur (Somewhat blowing heard best at the left lower sternal border), Irregularly Irregular Gastrointestinal: normal bowel sounds, non tender, soft, no organomegaly Extremity: No Calf Tenderness, No Pedal Edema, Other ( 2-3+ edema noted with chronic venous insufficiency change no ulceration patient reports that this is not unusual for him.) Neurologic/Psychiatric: Alert, Oriented x3 Assessment/Plan Assessment/Plan Assessment/Plan Anemia, possible UGI bleed - Negative fecal occult blood test today. Hemoglobin increased from to 7.7 yesterday. Anticoagulation is being held. Patient is stable and it seems likely the bleeding has stopped for now. Morning labs pending at this time. Recommend pt has EGD as an outpt -Discussed the procedure with pt; risks and complications not limited to pain, worsening of bleeding because he is on blood thinners, infection, esophageal perforation. All questions answered to his satisfaction. NSTEMI Acute on Chronic systolic HF Afib CML - could be cause of anemia Diabetes CAD Supervisory-Addendum Brief Verification & Attestation Participated in pt care: history, MDM, physical Personally performed: exam, history, MDM, supervision of care Care discussed with: Medical Student Procedures: n/a Verification and Attestation of Medical Student E/M Service A medical student performed and documented this service. I then reviewed and verified all information documented by the medical student and made modifications to such information, when appropriate. I personally performed a physical exam, medical decision making and then discussed any differences between the notes and made revisions as necessary to create one note. Jd Aj , 03/27/22 , 11:56 MALIKA PARISH Mar 27, 2022 07:46 JD AJ DO Mar 27, 2022 11:56
[2022-03-27] MEDS ORDERED: NS IV 1000 ML 1,000 ML ONE (08:25)
[2022-03-27] MEDS ORDERED: proPOfol 200 MG/20 ML (DIPRIVAN) VIAL IV ONE (08:26)
[2022-03-27] MEDS ORDERED: MIDAZOLAM 5 MG/5 ML (VERSED) VIAL ONE (08:26)
[2022-03-27] MEDS ORDERED: LIDOCAINE 2% VISCOUS 15 ML UDC ONE (08:30)
[2022-03-27] MEDS ORDERED: ASPIRIN E.C. 81 MG (ECOTRIN) TAB PO SCH (09:00)
[2022-03-27] MEDS ORDERED: ENOXAPARIN 100 MG/1 ML (LOVENOX) SYR SC SCH (09:00)
[2022-03-27] MEDS ORDERED: ENOXAPARIN 100 MG/1 ML (LOVENOX) SYR SC ONE (09:15)
[2022-03-27] MEDS: DABIGATRAN 150 MG (PRADAXA) CAPSULE PO SCH ×2 (10:00→20:18)
[2022-03-27] MEDS: ASPIRIN E.C. 81 MG (ECOTRIN) TAB PO SCH (10:00)
[2022-03-27] MEDS: PANTOPRAZOLE 40 MG (PROTONIX) TAB PO SCH ×2 (10:00→20:18)
--- NOTE | 2022-03-27 10:07 | Cardiology Progress Note ---
Subjective Date Seen by Provider: Mar 27, 2022 Time Seen by Provider: 10:04 Subjective/Events-last exam Patient was seen at bedside, feeling well. No chest pain. Review of Systems General: No Chills, No Night Sweats; Fatigue; No Malaise, No Appetite, No Other HEENT: No Head Aches, No Visual Changes, No Eye Pain, No Ear Pain, No Dysphasia, No Sinus Congestion, No Post Nasal Drip, No Sore Throat, No Other Pulmonary: Dyspnea; No Cough, No Pleuritic Chest Pain, No Other Cardiovascular: No: Chest Pain, Palpitations, Orthopnea, Paroxysmal Noc. Dyspnea, Edema, Lt Headedness, Other Objective-Cardiology Exam Last Set of Vital Signs Vital Signs 03/27/22 03/27/22 03/27/22 07:59 09:10 09:37 Temp 36.5 Pulse 58 Resp 14 B/P (MAP) 108/86 (93) Pulse Ox 96 O2 Delivery Room Air O2 Flow Rate 7.00 I&O Intake and Output 03/27/22 00:00 Intake Total 2050 ml Output Total 2300 ml Balance -250 ml Intake Oral 1900 ml IV Total 75 ml Other 75 ml Output Urine Total 2300 ml # Bowel Movements 1 General: Alert, Oriented X3, Cooperative HEENT: Atraumatic, PERRLA Neck: Supple, No JVD, No Thyromegaly Lungs: Clear to Auscultation, Normal Air Movement Heart: Normal S1, Normal S2, Other (Irregular, systolic murmur) Abdomen: Normal Bowel Sounds, Soft, No Tenderness, No Hepatosplenomegaly, No Masses Extremities: No Clubbing, No Cyanosis, No Edema, Normal Pulses, No Tenderness/Swelling Skin: No Rashes, No Breakdown, No Significant Lesion Neuro: Normal Speech, Normal Tone, Sensation Intact Psych/Mental Status: Mental Status NL, Mood NL A/P-Cardiology Admission Diagnosis Congestive heart failure, acute on chronic left ventricular systolic dysfunction Non-ST elevation myocardial infarction Coronary artery disease Acute renal failure Assessment/Plan Congestive heart failure, acute on chronic left ventricular systolic dysfunction Deterioration in ventricular function over the past few months. Ejection fraction 25 to 30%. Maintained on diuretics. I will continue on Lasix. JEAN CLAUDE was done on March 27, 2022 showing dilated left atrium and left atrial appendage with questionable thrombus in the left atrial appendage. Restarting oral anticoagulation. Continue with rate control. Anemia, slightly worse on this admission, stool for occult blood was negative. Discussed with Dr. Aaron, conservative management for now and restarting Pradaxa and aspirin. Paroxysmal atrial fibrillation, borderline bradycardic. Maintained on digoxin which will be stopped Has been on Coreg 25 mg twice daily, Started on Coreg 3.125, I will increase the dose to 6.25 mg twice daily. Continue to monitor Non-ST elevation myocardial infarction, mild elevation in troponin, no acute ST elevation was noted History of CABG x3 done in September 2002. Cardiac catheterization in 2010 showed patent DUBON to LAD, vein graft to the obtuse marginal branch. Had occluded right coronary artery and the vein graft to the right coronary artery that has been inoperable with collaterals from the left. Recent stress test showed total infarction of the whole inferior wall with small area of ronak-infarct ischemia which is probably the cause of his mild troponin elevation Continue with conservative management. Severe hyperkalemia and worsening renal function. Patient is unable to tolerate CHITO inhibitor and/or ARB Potassium supplement was held while he is receiving diuretics. Stress test done August 2021 showing fixed defect with no reversible ischemia. Moderate to severe mitral regurgitation, severe tricuspid regurgitation. After the cardioversion we will reevaluate the valvular function and consideration for referral for mitral clip and tricuspid clip. Severe pulmonary hypertension with PA pressure 80 to 85 mmHg secondary to heart failure. Extensive peripheral vascular disease. History of multiple interventions done by Dr. Freeman, with last intervention to the right lower extremity in 2011. 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 Normal on the left, slight deterioration compared to the previous study. Asymptomatic. ABDELRAHMAN January 2021 WNL Hypertension, monitor blood pressure at this time. Hyperlipidemia, continue to monitor lipids Mild bilateral carotid stenosis, most recent carotid duplex done in October 2020 History of amiodarone toxicity with thyroid toxicity. On thyroid replacement therapy, not receiving any amiodarone Diabetes mellitus, followed and managed by primary care physician. Acute on chronic renal failure. Worsening renal function. Probably secondary to low cardiac output. Possible improvement after cardioversion Continue to monitor CML, Anemia, Thrombocytopenia, splenomegaly. Patient is being followed by Dr. Mejias. CHITO HANNAH MD Mar 27, 2022 10:07
--- NOTE | 2022-03-27 10:59 | Anesthesia-General Post-Op ---
MAC Patient Condition Mental Status/LOC: Same as Preop Cardiovascular: Satisfactory Nausea/Vomiting: Absent Respiratory: Satisfactory Pain: Controlled Complications: Absent Post Op Complications Complications None Follow Up Care/Instructions Patient Instructions None needed. Anesthesiology Discharge Order Discharge Order Patient is doing well, no complaints, stable vital signs, no apparent adverse anesthesia problems. No complications reported per nursing. WILBERT HINOJOSA ROLLER MAKER Mar 27, 2022 10:59
[2022-03-27 11:07] LABS: HEMOGLOBIN 8.1 g/dL (13.3-17.7)
[2022-03-27 11:09] LABS: HEMATOCRIT 26 % (40-54); MEAN CORPUSCULAR HEMOGLOBIN 25 pg (25-34); MEAN CORPUSCULAR HGB CONC 31 g/dL (32-36); MEAN CORPUSCULAR VOLUME 81 fL (80-99); WHITE BLOOD COUNT 5.9 10^3/uL (4.3-11.0)
[2022-03-27 11:10] LABS: PLATELET COUNT 84 10^3/uL (130-400)
[2022-03-27 12:13] LABS: POTASSIUM 4.3 MMOL/L (3.6-5.0)
[2022-03-27 12:17] LABS: BILIRUBIN,TOTAL 1.5 MG/DL (0.1-1.0)
[2022-03-27 12:19] LABS: CREATININE SERUM 2.28 MG/DL (0.60-1.30)
[2022-03-27] MEDS ORDERED: VIT-31 PO (16:04)
[2022-03-27] MEDS ORDERED: MGX400T PO (16:04)
[2022-03-27] MEDS ORDERED: DIGO250T3 PO (16:04)
[2022-03-27] MEDS ORDERED: OMEG100032 PO (16:04)
[2022-03-27] MEDS ORDERED: HYDR-3817 PO (16:04)
[2022-03-27] MEDS ORDERED: CARV25TA PO (16:07)
[2022-03-27] MEDS: TAMSULOSIN 0.4 MG (FLOMAX) CAP PO SCH (18:22)
--- NOTE | 2022-03-27 21:06 | Progress Note ---
Subjective Date Seen by a Provider: Mar 27, 2022 Time Seen by a Provider: 07:50 Subjective/Events-last exam Patient is a 76 yo male admitted sunday for sob and chest pains. Patient indicates that these symptoms began last or so but have not progressed in severity. The patient has not had any procedures since admission, though he states that Dr. Heller is going to be placing a pacemaker sometime during his stay. Review of Systems General: No Chills, No Night Sweats, No Fatigue, No Malaise HEENT: No Head Aches, No Eye Pain, No Ear Pain, No Dysphasia, No Sinus Congestion, No Post Nasal Drip, No Sore Throat Pulmonary: Other (Shortness of breath) Cardiovascular: Chest Pain Gastrointestinal: No: Nausea, Vomiting, Abdominal Pain, Diarrhea, Constipation, Melena, Hematochezia Genitourinary: No Dysuria, No Frequency, No Incontinence, No Hematuria, No Retention Musculoskeletal: No: other, neck pain, shoulder pain, arm pain, back pain, hand pain, leg pain, foot pain Neurological: No: Weakness, Numbness, Incoordination, Change in speech, Confusion, Seizures, Other Focused Exam Time of Focused Exam: 07:50 Respiratory: Chest Non Tender, Lungs Clear, Normal Breath Sounds, No Accessory Muscle Use, No Respiratory Distress Cardiovascular: Other (Irregular rhythm with possible pvc's) Peripheral Pulses: 2+ Radial Pulses (R), 2+ Radial Pulses (L) Objective Exam Last Set of Vital Signs Vital Signs Date Time Temp Pulse Resp B/P (MAP) Pulse Ox O2 Delivery O2 Flow Rate FiO2 03/27/22 19:06 36.6 78 20 115/62 (79) 100 Room Air 03/27/22 10:14 7.00 Capillary Refill : Less Than 3 Seconds I&O Intake and Output 03/27/22 00:00 Intake Total 2050 ml Output Total 2300 ml Balance -250 ml Intake Oral 1900 ml IV Total 75 ml Other 75 ml Output Urine Total 2300 ml # Bowel Movements 1 General: Alert, Oriented X3, Cooperative, No Acute Distress Lungs: Clear to Auscultation Heart: Other (Irregular rhythm with possible pvcs) Extremities: Normal Pulses Skin: No Rashes, No Breakdown, No Significant Lesion Psych/Mental Status: Mental Status NL Results Lab Laboratory Tests 03/27/22 06:10: Glucometer 118H 03/27/22 11:01: White Blood Count 5.9, Red Blood Count 3.23L, Hemoglobin 8.1L, Hematocrit 26L, Mean Corpuscular Volume 81, Mean Corpuscular Hemoglobin 25, Mean Corpuscular Hemoglobin Concent 31L, Red Cell Distribution Width 18.0H, Platelet Count 84L, Mean Platelet Volume , Percent Immature Platelet Fraction 18.1H, Sodium Level 138, Potassium Level 4.3, Chloride Level 106, Carbon Dioxide Level 22, Anion Gap 10, Blood Urea Nitrogen 50H, Creatinine 2.28H, Estimat Glomerular Filtration Rate 29, BUN/Creatinine Ratio 22, Glucose Level 110H, Calcium Level 9.0, Corrected Calcium 9.0, Total Bilirubin 1.5H, Aspartate Amino Transf (AST/SGOT) 9, Alanine Aminotransferase (ALT/SGPT) 15, Alkaline Phosphatase 144H, Total Protein 7.0, Albumin 4.0 03/27/22 11:07: Glucometer 108 03/27/22 13:15: Lab Scanned Report Transfusion Reaction Form 03/27/22 15:17: Glucometer 129H 03/27/22 20:17: Glucometer 151H Assessment/Plan Assessment/Plan Assess & Plan/Chief Complaint Chest pain (unstable angina) - Nitroglycerin and Carvedilol Acute on Chronic Heart Failure - Carvedilol and Furosemide DM - Insulin Aspart and glucose monitoring Clinical Quality Measures Admission Status Reason for Inpatient Admission: Acute on Chronic Heart Failure, cardiac arrythmia, unstable angina AMI/AHF: Ejection Fraction: <40 (CHITO/ARB Indicated) ASA po Prior to arrival: NOMI Williamson Mar 27, 2022 21:06
--- NOTE | 2022-03-27 21:51 | Progress Note ---
Subjective Subjective/Events-last exam Pt seen at approximately 1130 am. States he is feeling well, denies concerns. He just came back from his JEAN CLAUDE, but does not know any results so far. He denies shortness of breath or chest pain. Focused Exam Time of Focused Exam: 07:50 Objective Exam Last Set of Vital Signs Vital Signs Date Time Temp Pulse Resp B/P (MAP) Pulse Ox O2 Delivery O2 Flow Rate FiO2 03/27/22 19:06 36.6 78 20 115/62 (79) 100 Room Air 03/27/22 10:14 7.00 Capillary Refill : Less Than 3 Seconds I&O Intake and Output 03/27/22 00:00 Intake Total 2050 ml Output Total 2300 ml Balance -250 ml Intake Oral 1900 ml IV Total 75 ml Other 75 ml Output Urine Total 2300 ml # Bowel Movements 1 General: Alert, No Acute Distress Lungs: Clear to Auscultation, Normal Air Movement Heart: Other (bradycardic, irregular) Abdomen: Normal Bowel Sounds, Soft Neuro: Normal Speech Psych/Mental Status: Mood NL Results/Procedures Lab Laboratory Tests 03/27/22 06:10: Glucometer 118H 03/27/22 11:01: White Blood Count 5.9, Red Blood Count 3.23L, Hemoglobin 8.1L, Hematocrit 26L, Mean Corpuscular Volume 81, Mean Corpuscular Hemoglobin 25, Mean Corpuscular Hemoglobin Concent 31L, Red Cell Distribution Width 18.0H, Platelet Count 84L, Mean Platelet Volume , Percent Immature Platelet Fraction 18.1H, Sodium Level 138, Potassium Level 4.3, Chloride Level 106, Carbon Dioxide Level 22, Anion Gap 10, Blood Urea Nitrogen 50H, Creatinine 2.28H, Estimat Glomerular Filtration Rate 29, BUN/Creatinine Ratio 22, Glucose Level 110H, Calcium Level 9.0, Corrected Calcium 9.0, Total Bilirubin 1.5H, Aspartate Amino Transf (AST/SGOT) 9, Alanine Aminotransferase (ALT/SGPT) 15, Alkaline Phosphatase 144H, Total Protein 7.0, Albumin 4.0 03/27/22 11:07: Glucometer 108 03/27/22 13:15: Lab Scanned Report Transfusion Reaction Form 03/27/22 15:17: Glucometer 129H 03/27/22 20:17: Glucometer 151H Assessment/Plan Assessment/Plan (1) Acute on chronic heart failure Status: Acute Assessment & Plan: Appreciate Cardiology recommendations. Low EF, plan was for possible cardioversion today to try to improve EF. Unable to tolerate ACEI/ARB due to hyperkalemia. On aspirin, carvedilol, IV lasix. Qualifiers: Qualified Codes: I50.43 - Acute on chronic combined systolic (congestive) and diastolic (congestive) heart failure (2) Chest pain Status: Resolved Qualifiers: Qualified Codes: R07.9 - Chest pain, unspecified (3) Diabetes mellitus, type 2 Status: Chronic Assessment & Plan: Sliding scale insulin. Hold home meds, glucose less than 200 since admit. Diabetic diet. Qualifiers: Qualified Codes: E11.65 - Type 2 diabetes mellitus with hyperglycemia; Z79.4 - jail (current) use of insulin (4) Atrial fibrillation Status: Chronic Assessment & Plan: Appreciate Cardiology recommendations. On carvedilol and dabigatran. (5) Anemia Status: Chronic Assessment & Plan: Has had mild anemia at least intermittently since 2009, but is significantly decreased currently. 01/2022 iron studies showed low iron, high TIBC and low ferritin, suspect combination of iron deficiency and CKD. Stool occult blood test neg, colonoscopy in 2016 with hemorrhoids and diverticulosis. Consider EGD when stable. s/p 1 unit PRBC. IV iron ordered. Qualifiers: (6) CML (chronic myelocytic leukemia) Status: Chronic Assessment & Plan: Follows with Oncology, reports has been stable over many y ears and has not required treatment to date. (7) Thrombocytopenia Status: Chronic Assessment & Plan: Intermittent mild since 2009, suspect related to CML. (8) Acute kidney injury superimposed on chronic kidney disease Status: Acute Assessment & Plan: Baseline creatinine appears to be around 1.7-1.8. CT abdomen shows small left renal non-obstructing stone and left renal cysts. (9) Elevated d-dimer Status: Acute (10) Elevated troponin Status: Acute Assessment & Plan: Cardiology consulted, appreciate recommendations. (11) Tricuspid regurgitation Status: Chronic (12) Hypertension Status: Chronic (13) Hyperlipidemia Status: Chronic (14) Mitral regurgitation Status: Chronic (15) Pulmonary hypertension Status: Chronic Assessment & Plan: Secondary to heart failure. (16) Peripheral arterial disease Status: Chronic (17) Elevated bilirubin Status: Acute Assessment & Plan: Uncertain etiology, CT without liver abnormality. (18) DVT prophylaxis Status: Acute Assessment & Plan: Dabigatran Clinical Quality Measures AMI/AHF: ASA po Prior to arrival: JOE Dean MD Mar 27, 2022 21:51
[2022-03-27] MEDS ORDERED: HYDROcodone/APAP 7.5 MG/325 MG (LORTAB, LORCET PLUS) TABLET PO PRN (22:00)
[2022-03-28] VITALS (8 sets, daily range): BP systolic 102–127; BP diastolic 56–81
[2022-03-28] MEDS: NITROGLYCERIN 0.4 MG SL TABS BTL 25'S SL PRN ×2 (04:53→10:17)
[2022-03-28 05:31] LABS: HEMOGLOBIN 7.7 g/dL (13.3-17.7)
[2022-03-28 05:33] LABS: HEMATOCRIT 25 % (40-54); MEAN CORPUSCULAR HEMOGLOBIN 25 pg (25-34); MEAN CORPUSCULAR HGB CONC 31 g/dL (32-36); MEAN CORPUSCULAR VOLUME 80 fL (80-99); PLATELET COUNT 81 10^3/uL (130-400); WHITE BLOOD COUNT 8.6 10^3/uL (4.3-11.0)
[2022-03-28 05:44] LABS: POTASSIUM 4.3 MMOL/L (3.6-5.0)
[2022-03-28] MEDS: CATHETER FLUSH 10 ML SYR IVP SCH ×2 (05:45→14:10)
[2022-03-28 05:49] LABS: CREATININE SERUM 2.25 MG/DL (0.60-1.30)
[2022-03-28 05:52] LABS: MAGNESIUM 1.6 MG/DL (1.6-2.4)
[2022-03-28] MEDS: FUROSEMIDE 40 MG/4 ML INJ (LASIX) IV SCH ×2 (05:59→17:26)
[2022-03-28] MEDS: LEVOTHYROXINE 100 MCG (LEVOTHROID) TAB PO SCH (05:59)
[2022-03-28] MEDS: inSUlin ASPART (NovoLOG) 1 UNIT/0.01 ML (CHARGE PER UNIT) SC SCH ×4 (06:00→21:40)
--- NOTE | 2022-03-28 08:11 | Cardiology Progress Note ---
Subjective Date Seen by Provider: Mar 28, 2022 Time Seen by Provider: 08:09 Subjective/Events-last exam Patient was seen at bedside, feeling better at this point Reported episode of chest pain and shortness of breath early this morning responded to sublingual nitroglycerin Review of Systems General: No Chills, No Night Sweats; Fatigue, Malaise; No Appetite, No Other HEENT: No Head Aches, No Visual Changes, No Eye Pain, No Ear Pain, No Dysphasia, No Sinus Congestion, No Post Nasal Drip, No Sore Throat, No Other Pulmonary: Dyspnea; No Cough, No Pleuritic Chest Pain, No Other Cardiovascular: No: Chest Pain, Palpitations, Orthopnea, Paroxysmal Noc. Dyspnea, Edema, Lt Headedness, Other Focused Exam Time of Focused Exam: 07:50 Objective-Cardiology Exam Last Set of Vital Signs Vital Signs 03/27/22 03/28/22 10:14 07:51 Temp 36.9 Pulse 78 Resp 27 B/P (MAP) 111/62 (78) Pulse Ox 96 O2 Delivery Room Air O2 Flow Rate 7.00 I&O Intake and Output 03/28/22 00:00 Intake Total 1680 ml Output Total 3100 ml Balance -1420 ml Intake Oral 1680 ml Output Urine Total 3100 ml General: Alert, Oriented X3, Cooperative, No Acute Distress HEENT: Atraumatic, PERRLA Neck: Supple, No JVD, No Thyromegaly Lungs: Clear to Auscultation, Normal Air Movement Heart: Normal S1, Normal S2, Other (bradycardic, irregular) Abdomen: Normal Bowel Sounds, Soft Extremities: No Clubbing, No Cyanosis, Normal Pulses Skin: No Rashes, No Breakdown, No Significant Lesion Neuro: Normal Speech Psych/Mental Status: Mood NL Results Lab Laboratory Tests 03/27/22 11:01 03/28/22 05:05 A/P-Cardiology Admission Diagnosis Congestive heart failure, acute on chronic left ventricular systolic dysfunction Non-ST elevation myocardial infarction Coronary artery disease Acute renal failure Assessment/Plan Congestive heart failure, acute on chronic left ventricular systolic dysfunction Deterioration in ventricular function over the past few months. Ejection fraction 25 to 30%. Maintained on diuretics. I will continue on Lasix. JEAN CLAUDE was done on March 27, 2022 showing dilated left atrium and left atrial appendage with questionable thrombus in the left atrial appendage. Restarting oral anticoagulation. Continue with rate control. Anemia, slightly worse on this admission, stool for occult blood was negative. Restarted on Pradaxa due to the presence of a small thrombus in the left atrial appendage Restarted on aspirin Had a slight drop in H&H. Continue to monitor Discussed with Dr. Aaron, may require endoscopy Paroxysmal atrial fibrillation, borderline bradycardic. Maintained on digoxin which will be stopped Has been on Coreg 25 mg twice daily, Tolerating Coreg 6.25 mg twice daily. Continue to monitor Non-ST elevation myocardial infarction, mild elevation in troponin, no acute ST elevation was noted History of CABG x3 done in September 2002. Cardiac catheterization in 2010 showed patent DUBON to LAD, vein graft to the obtuse marginal branch. Had occluded right coronary artery and the vein graft to the right coronary artery that has been inoperable with collaterals from the left. Recent stress test showed total infarction of the whole inferior wall with small area of ronak-infarct ischemia which is probably the cause of his mild troponin elevation Continue with conservative management. Severe hyperkalemia and worsening renal function. Patient is unable to tolerate CHITO inhibitor and/or ARB Potassium supplement was held while he is receiving diuretics. Stress test done August 2021 showing fixed defect with no reversible ischemia. Moderate to severe mitral regurgitation, severe tricuspid regurgitation. After the cardioversion we will reevaluate the valvular function and consideration for referral for mitral clip and tricuspid clip. Severe pulmonary hypertension with PA pressure 80 to 85 mmHg secondary to heart failure. Extensive peripheral vascular disease. History of multiple interventions done by Dr. Freeman, with last intervention to the right lower extremity in 2011. 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 Normal on the left, slight deterioration compared to the previous study. Asymptomatic. ABDELRAHMAN January 2021 WNL Hypertension, monitor blood pressure at this time. Hyperlipidemia, continue to monitor lipids Mild bilateral carotid stenosis, most recent carotid duplex done in October 2020 History of amiodarone toxicity with thyroid toxicity. On thyroid replacement therapy, not receiving any amiodarone Diabetes mellitus, followed and managed by primary care physician. Acute on chronic renal failure. Worsening renal function. Probably secondary to low cardiac output. Possible improvement after cardioversion Continue to monitor CML, Anemia, Thrombocytopenia, splenomegaly. Patient is being followed by Dr. Mejias. CHITO HANNAH MD Mar 28, 2022 08:11
--- NOTE | 2022-03-28 08:47 | Progress Note - Surgery ---
MALIKA PARISH 03/28/22 0847: Subjective Date Seen by a Provider: Mar 28, 2022 Time Seen by a Provider: 08:40 Subjective/Events-last exam Pt resting comfortably, ready to eat breakfast. States he had some chest pain and difficultly breathing this morning, that improved with nitro. He has no chest pain or SOB at the time. He denies fever, chills, N/V, blood in stools, or abdominal pain. He is eating, drinking, and urinating normally. He had a JEAN CLAUDE yesterday and was started again on anticoagulants. He has no other complaints at this time. Review of Systems General: No Chills, No Night Sweats HEENT: No Head Aches Pulmonary: No Cough, No Pleuritic Chest Pain Cardiovascular: No: Chest Pain Gastrointestinal: No: Nausea, Vomiting, Abdominal Pain Genitourinary: No Retention Musculoskeletal: No: leg pain Neurological: No: Weakness Focused Exam Time of Focused Exam: 07:50 Objective Exam Vital Signs Date Time Temp Pulse Resp B/P (MAP) Pulse Ox O2 Delivery O2 Flow Rate FiO2 03/28/22 07:59 76 03/28/22 07:51 36.9 78 27 111/62 (78) 96 Room Air 03/28/22 04:00 37.1 78 18 115/56 (75) 98 Room Air 03/28/22 04:00 Room Air 03/28/22 01:00 78 03/28/22 00:00 79 126/58 (80) 99 Room Air 03/28/22 00:00 36.9 72 18 126/58 (80) 97 Room Air 03/27/22 21:00 Room Air 03/27/22 19:06 36.6 78 20 115/62 (79) 100 Room Air 03/27/22 19:00 70 03/27/22 16:00 54 123/64 (83) 100 Room Air 03/27/22 15:00 48 131/63 (85) 97 Room Air 03/27/22 12:57 57 03/27/22 12:00 36.6 44 10 107/79 (88) 97 Room Air 03/27/22 10:20 Room Air 03/27/22 10:14 100 OxyMask 7.00 03/27/22 09:37 58 14 108/86 (93) 96 Room Air 03/27/22 09:30 59 18 115/61 (79) 97 Room Air 03/27/22 09:10 48 14 106/57 (73) 100 Simple Mask 7.00 03/27/22 09:01 53 16 131/63 (85) 98 Room Air 03/27/22 09:00 50 20 107/79 (88) 98 Nasal Cannula 2.00 I & O 03/28/22 07:00 Intake Total 2380 ml Output Total 3050 ml Balance -670 ml Capillary Refill : Less Than 3 Seconds General Appearance: No Apparent Distress, WD/WN HEENT: PERRL/EOMI, Moist Mucous Membranes Neck: Full Range of Motion, Supple Respiratory: Lungs Clear, Normal Breath Sounds, No Accessory Muscle Use, No Respiratory Distress Cardiovascular: Regular Rate, Rhythm, No JVD, No Murmur, Other (Irregular rhythm with possible pvc's) Peripheral Pulses: 2+ Radial Pulses (R), 2+ Radial Pulses (L) Gastrointestinal: normal bowel sounds, non tender, soft Extremity: Normal Capillary Refill, No Calf Tenderness, Pedal Edema (nonpitting), Other ( 2-3+ edema noted with chronic venous insufficiency change no ulceration patient reports that this is not unusual for him.) Neurologic/Psychiatric: Alert, Oriented x3 Skin: Normal Color, Warm/Dry, Ecchymosis (Related to sites of blood draw) Lymphatic: No Adenopathy (no adenopathy of supraclavicular nodes. ) Results Lab Laboratory Tests 03/27/22 11:01: White Blood Count 5.9, Red Blood Count 3.23L, Hemoglobin 8.1L, Hematocrit 26L, Mean Corpuscular Volume 81, Mean Corpuscular Hemoglobin 25, Mean Corpuscular Hemoglobin Concent 31L, Red Cell Distribution Width 18.0H, Platelet Count 84L, Mean Platelet Volume , Percent Immature Platelet Fraction 18.1H, Sodium Level 138, Potassium Level 4.3, Chloride Level 106, Carbon Dioxide Level 22, Anion Gap 10, Blood Urea Nitrogen 50H, Creatinine 2.28H, Estimat Glomerular Filtration Rate 29, BUN/Creatinine Ratio 22, Glucose Level 110H, Calcium Level 9.0, Corrected Calcium 9.0, Total Bilirubin 1.5H, Aspartate Amino Transf (AST/SGOT) 9, Alanine Aminotransferase (ALT/SGPT) 15, Alkaline Phosphatase 144H, Total Protein 7.0, Albumin 4.0 8/15/22 11:07: Glucometer 108 03/27/22 13:15: Lab Scanned Report Transfusion Reaction Form 03/27/22 15:17: Glucometer 129H 03/27/22 20:17: Glucometer 151H 03/28/22 05:05: White Blood Count 8.6, Red Blood Count 3.05L, Hemoglobin 7.7L, Hematocrit 25L, Mean Corpuscular Volume 80, Mean Corpuscular Hemoglobin 25, Mean Corpuscular Hemoglobin Concent 31L, Red Cell Distribution Width 18.3H, Platelet Count 81L, Mean Platelet Volume , Percent Immature Platelet Fraction 16.9H, Sodium Level 135, Potassium Level 4.3, Chloride Level 103, Carbon Dioxide Level 19L, Anion Gap 13, Blood Urea Nitrogen 51H, Creatinine 2.25H, Estimat Glomerular Filtration Rate 30, BUN/Creatinine Ratio 23, Glucose Level 135H, Calcium Level 9.0, Magnesium Level 1.6 Assessment/Plan Assessment/Plan Assessment/Plan Chest pain (unstable angina) - Nitroglycerin and Carvedilol Acute on Chronic Heart Failure - Carvedilol and Furosemide DM - Insulin Aspart and glucose monitoring Pt hemoglobin dropped minimally from 8.1 yesterday to 7.7 today. He received a JEAN CLAUDE yesterday and was started back on anticoagulants. Pt has no abdominal pain or blood in stool. Will likely do an EGD as an outpatient. Clinical Quality Measures AMI/AHF: ASA po Prior to arrival: Camille AARONAUGUSTIN B DO 03/28/22 1150: Subjective Time Seen by a Provider: 11:02 Subjective/Events-last exam Pt seen and examined, no changes. He denies melena or hematochezia Review of Systems General: No Chills, No Night Sweats Pulmonary: No Cough Cardiovascular: No: Chest Pain Gastrointestinal: No: Nausea, Vomiting, Abdominal Pain Objective Exam General Appearance: No Apparent Distress, WD/WN HEENT: PERRL/EOMI, Moist Mucous Membranes Respiratory: Lungs Clear, Normal Breath Sounds, No Accessory Muscle Use, No Respiratory Distress Cardiovascular: Systolic Murmur, Irregularly Irregular, Other (Irregular rhythm with possible pvc's) Gastrointestinal: normal bowel sounds, non tender, soft Extremity: Pedal Edema (nonpitting), Other ( 2-3+ edema noted with chronic venous insufficiency change no ulceration patient reports that this is not unusual for him.) Assessment/Plan Assessment/Plan Assessment/Plan Chest pain (unstable angina) - Nitroglycerin and Carvedilol Atrial Blood clot Anemia - possibly due to CML Acute on Chronic Heart Failure - Carvedilol and Furosemide DM - Insulin Aspart and glucose monitoring Pt hemoglobin dropped minimally from 8.1 yesterday to 7.7 today. He received a JEAN CLAUDE yesterday and was started back on anticoagulants. Pt has no abdominal pain or blood in stool. Will likely do an EGD as an outpatient and therefore sign off for now. Can reconsult if needed. Supervisory-Addendum Brief Verification & Attestation Participated in pt care: history, MDM, physical Personally performed: exam, history, MDM, supervision of care Care discussed with: Medical Student Procedures: n/a Verification and Attestation of Medical Student E/M Service A medical student performed and documented this service. I then reviewed and verified all information documented by the medical student and made modifications to such information, when appropriate. I personally performed a physical exam, medical decision making and then discussed any differences between the notes and made revisions as necessary to create one note. Augustin Aaron , 03/28/22 , 11:50 MALIKA PARISH Mar 28, 2022 08:47 AUGUSTIN AARON DO Mar 28, 2022 11:50
[2022-03-28] MEDS: IRON SUCROSE 200 MG/10 ML (VENOFER) VIAL IV SCH (08:49)
[2022-03-28] MEDS: ASPIRIN E.C. 81 MG (ECOTRIN) TAB PO SCH (08:58)
[2022-03-28] MEDS: DABIGATRAN 150 MG (PRADAXA) CAPSULE PO SCH ×2 (08:58→21:27)
[2022-03-28] MEDS: PANTOPRAZOLE 40 MG (PROTONIX) TAB PO SCH ×2 (08:58→21:27)
--- NOTE | 2022-03-28 12:23 | Progress Note ---
NOMI GARCIA 03/28/22 1223: Subjective Date Seen by a Provider: Mar 28, 2022 Time Seen by a Provider: 07:50 Subjective/Events-last exam Patient is a 76 yo male presenting for acute on chronic heart failure, atrial fibrillation, acute kidney injury on chronic kidney disease. Patient indicates that nitroglycerin was administered at earlier this morning after he experienced sob and chest pain. Nitroglycerin was given at 0453. Review of Systems Pulmonary: Other (sob) Cardiovascular: Chest Pain Gastrointestinal: No: Nausea, Vomiting, Abdominal Pain, Diarrhea, Constipation Genitourinary: No Dysuria, No Frequency, No Incontinence, No Hematuria, No Retention Musculoskeletal: No: other, neck pain, shoulder pain, arm pain, back pain, hand pain, leg pain, foot pain Focused Exam Time of Focused Exam: 07:50 Objective Exam Last Set of Vital Signs Vital Signs Date Time Temp Pulse Resp B/P (MAP) Pulse Ox O2 Delivery O2 Flow Rate FiO2 03/28/22 12:09 78 32 98 Room Air 03/28/22 07:51 36.9 03/27/22 10:14 7.00 Capillary Refill : Less Than 3 Seconds HR: 78 RR: 20-25 I&O Intake and Output 03/28/22 00:00 Intake Total 1680 ml Output Total 3100 ml Balance -1420 ml Intake Oral 1680 ml Output Urine Total 3100 ml General: Alert, Oriented X3, Cooperative, No Acute Distress HEENT: Atraumatic, PERRLA Lungs: Clear to Auscultation, Normal Air Movement Heart: Other (Arrythmia noted, possible PVCs) Extremities: Normal Pulses (Radial pulses 2+ bilaterally), Other (Pitting edema present in both shins.) Neuro: Normal Speech Psych/Mental Status: Mental Status NL Results Lab Laboratory Tests 03/27/22 13:15: Lab Scanned Report Transfusion Reaction Form 03/27/22 15:17: Glucometer 129H 03/27/22 20:17: Glucometer 151H 03/28/22 05:05: White Blood Count 8.6, Red Blood Count 3.05L, Hemoglobin 7.7L, Hematocrit 25L, Mean Corpuscular Volume 80, Mean Corpuscular Hemoglobin 25, Mean Corpuscular H emoglobin Concent 31L, Red Cell Distribution Width 18.3H, Platelet Count 81L, Mean Platelet Volume , Percent Immature Platelet Fraction 16.9H, Sodium Level 135, Potassium Level 4.3, Chloride Level 103, Carbon Dioxide Level 19L, Anion Gap 13, Blood Urea Nitrogen 51H, Creatinine 2.25H, Estimat Glomerular Filtration Rate 30, BUN/Creatinine Ratio 23, Glucose Level 135H, Calcium Level 9.0, Magnesium Level 1.6 03/28/22 10:39: Glucometer 153H Meds Patient taking levothyroxin 100 mg daily, dabigatran BID PO, Hydrocodone- acetominophin Q6H. Iron sucrose: 200 mg Q48hr (last given 03/26 1046, due for another dose if indicated by iron studies). Furosemide: 40 mg IV Q12H ( last given 03/28 0559) Assessment/Plan Assessment/Plan Assess & Plan/Chief Complaint Chest pain (unstable angina) - Nitroglycerin and Carvedilol Acute on Chronic Heart Failure - Carvedilol and Furosemide Anemia - stool occult blood negative, restarted dabigatran and aspirin NSTEMI - conservative management. Total infarction of anterior wall on last stress test as indicated by Dr. Heller. Atrial Fibrillation - Carvedilol DM - Insulin Aspart and glucose monitoring Clinical Quality Measures Admission Status Admission Status: Inpatient Order (span 2 midnights) Reason for Inpatient Admission: Acute on chronic heart failure, dilated left atrium with possible thrombi in left atrial appendage, NSTEMI AMI/AHF: D/C Medications Addressed: Beta ericka, Diuretic ASA po Prior to arrival: No JOE GALLEGOS MD 03/28/22 2215: Supervisory-Addendum Brief Verification & Attestation Participated in pt care: history, MDM, physical Personally performed: exam, history, MDM, supervision of care Care discussed with: Medical Student Procedures: n/a I personally saw and examined patient and my findings confirm that documented by the medical student. I directed the plan of care as documented by the medical student. NOMI GARCIA Mar 28, 2022 12:23 JOE GALLEGOS MD Mar 28, 2022 22:15
--- NOTE | 2022-03-28 17:18 | Physician Query Clarification ---
Physician Query-General Query to Physician: The medical record reflects the following clinical scenario: The patient, in the setting of History/Risk factors, OK's, CAD with CABG, worsening ventricular function Clinical Findings Chest pain, troponin I 0.070, 0.075 then 0.068 Treatment Aspirin, Cardiology consult, NTG, Question: Do you agree with the impression of NSTEMI per Dr. Marce Heller and Dr. Aaron? 1. Yes; will document NSTEMI in the Progress Notes 2. No; will continue current documentation in the Progress Notes 3. Other; will document explanation of clinical findings 4. Clinically undetermined; no explanation for clinical findings Please clarify and document your clinical opinion in the Progress Notes and Discharge Summary including the definitive and/or presumptive diagnosis, (suspected or probable), related to the above clinical findings. Please include clinical findings supporting your diagnosis. In responding to this query, please exercise your independent professional judgment. The purpose of this communication is to more accurately reflect the complexity of your patients condition. The fact that a question is asked does not imply that any particular answer is desired or expected. Thank you for timely response to this clarification. Neelam Webb RN, MSN Clinical Convertible Sofa Bedspring Tester [phone] PHYSICIAN RESPONSE: Based on the clinical findings in the record, please respond to the query above on this document as an addendum. Physician Response: Physician Response 1 If you have questions please contact: Sanitation Worker [employer]inery: Ext: Thank you for your time and cooperation. Clinical Convertible Sofa Bedspring Tester/Sanitation Worker [employer]osing Machinery This is a permanent part of the medical record NEELAM WEBB Mar 28, 2022 17:18 JOE GALLEGOS MD Mar 30, 2022 21:25
[2022-03-28] MEDS: TAMSULOSIN 0.4 MG (FLOMAX) CAP PO SCH (17:26)
[2022-03-28] MEDS ORDERED: AtorvaSTATin TABLET 10 MG TABLET PO SCH (21:00)
[2022-03-28] MEDS ORDERED: traZODone 100 MG (DESYREL) TAB PO SCH (21:00)
[2022-03-29] VITALS: BP 104/52
[2022-03-29 04:45] VITALS: BP 117/67
[2022-03-29 05:44] LABS: BASOPHILS % (AUTO) 0 % (0-10); MEAN CORPUSCULAR VOLUME 81 fL (80-99)
[2022-03-29 05:46] LABS: EOSINOPHILS % (AUTO) 1 % (0-10); HEMATOCRIT 25 % (40-54); HEMOGLOBIN 8.1 g/dL (13.3-17.7); LYMPHOCYTES # (AUTO) 1.5 10^3/uL (1.0-4.0); LYMPHOCYTES % (AUTO) 21 % (12-44); MEAN CORPUSCULAR HEMOGLOBIN 26 pg (25-34); MEAN CORPUSCULAR HGB CONC 32 g/dL (32-36); MONOCYTES # (AUTO) 1.7 10^3/uL (0.0-1.0); MONOCYTES % (AUTO) 23 % (0-12); NEUTROPHILS # (AUTO) 3.7 10^3/uL (1.8-7.8); NEUTROPHILS % (AUTO) 51 % (42-75); PLATELET COUNT 80 10^3/uL (130-400); WHITE BLOOD COUNT 7.3 10^3/uL (4.3-11.0)
[2022-03-29 05:54] LABS: POTASSIUM 4.1 MMOL/L (3.6-5.0)
[2022-03-29 05:55] LABS: CALCIUM 9.1 MG/DL (8.5-10.1)
[2022-03-29 06:00] LABS: CREATININE SERUM 2.33 MG/DL (0.60-1.30)
[2022-03-29] MEDS: inSUlin ASPART (NovoLOG) 1 UNIT/0.01 ML (CHARGE PER UNIT) SC SCH ×2 (06:21→11:22)
[2022-03-29] MEDS: CATHETER FLUSH 10 ML SYR IVP SCH (06:25)
[2022-03-29 08:01] VITALS: BP 128/66
[2022-03-29] MEDS: FUROSEMIDE 40 MG/4 ML INJ (LASIX) IV SCH (08:13)
[2022-03-29] MEDS: LEVOTHYROXINE 100 MCG (LEVOTHROID) TAB PO SCH (08:13)
[2022-03-29] MEDS: DABIGATRAN 150 MG (PRADAXA) CAPSULE PO SCH (09:21)
[2022-03-29] MEDS: PANTOPRAZOLE 40 MG (PROTONIX) TAB PO SCH (09:21)
[2022-03-29] MEDS: ASPIRIN E.C. 81 MG (ECOTRIN) TAB PO SCH (09:21)
--- NOTE | 2022-03-29 11:44 | Cardiology Progress Note ---
Subjective Date Seen by Provider: Mar 29, 2022 Time Seen by Provider: 11:39 Subjective/Events-last exam Patient was seen at bedside, laying down comfortably No further episodes of chest pain. No palpitation. Feeling better Review of Systems General: No Chills, No Night Sweats; Fatigue; No Malaise, No Appetite, No Other HEENT: No Head Aches, No Visual Changes, No Eye Pain, No Ear Pain, No Dysphasia, No Sinus Congestion, No Post Nasal Drip, No Sore Throat, No Other Pulmonary: No Dyspnea, No Cough, No Pleuritic Chest Pain, No Other Cardiovascular: No: Chest Pain, Palpitations, Orthopnea, Paroxysmal Noc. Dyspnea, Edema, Lt Headedness, Other Focused Exam Time of Focused Exam: 07:50 Objective-Cardiology Exam Last Set of Vital Signs Vital Signs 03/27/22 03/28/22 03/29/22 10:14 19:00 08:01 Temp 36.1 Pulse 76 Resp 18 B/P (MAP) 128/66 (86) Pulse Ox 98 O2 Delivery Room Air O2 Flow Rate 7.00 I&O Intake and Output 03/29/22 00:00 Intake Total 1540 ml Output Total 1550 ml Balance -10 ml Intake Oral 1540 ml Output Urine Total 1550 ml General: Alert, Oriented X3, Cooperative, No Acute Distress HEENT: Atraumatic, PERRLA Neck: Supple, No JVD, No Thyromegaly Lungs: Clear to Auscultation, Normal Air Movement Heart: Other (Arrythmia noted, possible PVCs) Abdomen: Normal Bowel Sounds, Soft Extremities: Normal Pulses (Radial pulses 2+ bilaterally), Other (Pitting edema present in both shins.) Skin: No Rashes, No Breakdown, No Significant Lesion Neuro: Normal Speech Psych/Mental Status: Mental Status NL Results Lab Laboratory Tests 03/29/22 05:10 A/P-Cardiology Admission Diagnosis Congestive heart failure, acute on chronic left ventricular systolic dysfunction Non-ST elevation myocardial infarction Coronary artery disease Acute renal failure Assessment/Plan Congestive heart failure, acute on chronic left ventricular systolic dysfunction Deterioration in ventricular function over the past few months. Ejection fraction 25 to 30%. Maintained on diuretics. I will continue on Lasix. JEAN CLAUDE was done on March 27, 2022 showing dilated left atrium and left atrial appendage with questionable thrombus in the left atrial appendage. Restarting oral anticoagulation. Continue with rate control. Anemia, slightly worse on this admission, stool for occult blood was negative. Restarted on Pradaxa due to the presence of a small thrombus in the left atrial appendage Restarted on aspirin Had a slight drop in H&H. Continue to monitor Discussed with Dr. Aaron, may require endoscopy Paroxysmal atrial fibrillation, borderline bradycardic. Maintained on digoxin which will be stopped Has been on Coreg 25 mg twice daily, Tolerating Coreg 6.25 mg twice daily. Continue to monitor Non-ST elevation myocardial infarction, mild elevation in troponin, no acute ST elevation was noted History of CABG x3 done in September 2002. Cardiac catheterization in 2010 showed patent DUBON to LAD, vein graft to the obtuse marginal branch. Had occluded right coronary artery and the vein graft to the right coronary artery that has been inoperable with collaterals from the left. Recent stress test showed total infarction of the whole inferior wall with small area of ronak-infarct ischemia which is probably the cause of his mild troponin elevation Continue with conservative management. Severe hyperkalemia and worsening renal function. Patient is unable to tolerate CHITO inhibitor and/or ARB Potassium supplement was held while he is receiving diuretics. Stress test done August 2021 showing fixed defect with no reversible ischemia. Moderate to severe mitral regurgitation, severe tricuspid regurgitation. After the cardioversion we will reevaluate the valvular function and consideration for referral for mitral clip and tricuspid clip. Severe pulmonary hypertension with PA pressure 80 to 85 mmHg secondary to heart failure. Extensive peripheral vascular disease. History of multiple interventions done by Dr. Freeman, with last intervention to the right lower extremity in 2011. 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 Normal on the left, slight deterioration compared to the previous study. Asymptomatic. ABDELRAHMAN January 2021 WNL Hypertension, monitor blood pressure at this time. Hyperlipidemia, continue to monitor lipids Mild bilateral carotid stenosis, most recent carotid duplex done in October 2020 History of amiodarone toxicity with thyroid toxicity. On thyroid replacement therapy, not receiving any amiodarone Diabetes mellitus, followed and managed by primary care physician. Acute on chronic renal failure. Worsening renal function. Probably secondary to low cardiac output. Possible improvement after cardioversion Continue to monitor CML, Anemia, Thrombocytopenia, splenomegaly. Patient is being followed by Dr. Mejias. CHITO HANNAH MD Mar 29, 2022 11:44
[2022-03-29] MEDS ORDERED: ASPI-1238 PO (11:48)
[2022-03-29] MEDS ORDERED: PANT40TA52 PO (11:48)
[2022-03-29] MEDS ORDERED: POTA10TA PO (11:48)
[2022-03-29] MEDS ORDERED: FURO-124 PO (11:48)
[2022-03-29] MEDS ORDERED: TMSL.4C PO (11:48)
[2022-03-29] MEDS ORDERED: CARV6.252 PO (11:48)
[2022-03-29 12:00] VITALS: BP 123/60
[2022-03-29 12:32] VITALS: BP 123/60
[2022-03-29] MEDS ORDERED: LIDOCAINE 1% INJ 20 ML VIAL ONE (15:29)
--- NOTE | 2022-03-29 15:40 | Discharge Summary ---
JOSENOMI Yasmani 03/29/22 1533: Discharge Summary Hospital Course Problems/Diagnosis: (1) Acute on chronic heart failure Status: Acute Assessment & Plan: Appreciate Cardiology recommendations. Low EF, plan was for possible cardioversion today to try to improve EF. Unable to tolerate ACEI/ARB due to hyperkalemia. On aspirin, carvedilol, IV lasix. Patient to be prescribed Furosemide 40 mg PO BID. Qualifiers: Qualified Codes: I50.43 - Acute on chronic combined systolic (congestive) and diastolic (congestive) heart failure (2) Chest pain Status: Resolved Resolution Date/Time: 03/27/22 @ 21:48 Assessment & Plan: Patient administered nitroglycerin for chest pain. Last dose given at 1017 on 03/28/2022. Qualifiers: Qualified Codes: R07.9 - Chest pain, unspecified (3) Diabetes mellitus, type 2 Status: Chronic Assessment & Plan: Sliding scale insulin. Hold home meds, glucose less than 200 since admit. Diabetic diet. (Discontinue Glipizide, continue Glargine and Liraglutide) Qualifiers: (4) Atrial fibrillation Status: Chronic Assessment & Plan: Appreciate Cardiology recommendations. On carvedilol and dabigatran. (5) Anemia Status: Chronic Assessment & Plan: Has had mild anemia at least intermittently since 2009, but is significantly decreased currently. 01/2022 iron studies showed low iron, high TIBC and low ferritin, suspect combination of iron deficiency and CKD. Stool occult blood test neg, colonoscopy in 2016 with hemorrhoids and diverticulosis. Consider EGD when stable. s/p 1 unit PRBC. IV iron ordered. Qualifiers: Qualified Codes: N18.4 - Chronic kidney disease, stage 4 (severe); D63.1 - Anemia in chronic kidney disease (6) CML (chronic myelocytic leukemia) Status: Chronic Assessment & Plan: Follows with Oncology, reports has been stable over many years and has not required treatment to date. (7) Thrombocytopenia Status: Chronic Assessment & Plan: Intermittent mild since 2009, suspect related to CML. (8) Acute kidney injury superimposed on chronic kidney disease Status: Acute Assessment & Plan: Baseline creatinine appears to be around 1.7-1.8. CT abdomen shows small left renal non-obstructing stone and left renal cysts. (9) Elevated d-dimer Status: Acute Assessment & Plan: Patient is ambulatory, prescribed dabigatran, aspirin, atorvastatin. PE unlikely based on clinical presentation, lab studies, imaging studies, and pharmacological management. Ultrasound examination of the legs found no evidence of DVT. (10) Elevated troponin Status: Acute Assessment & Plan: Cardiology consulted, appreciate recommendations. (11) Tricuspid regurgitation Status: Chronic Assessment & Plan: Appreciate cardiology recommendations. (12) Hypertension Status: Chronic Assessment & Plan: Patient prescribed furosemide 40 mg BID. Continue medical management. (13) Hyperlipidemia Status: Chronic Assessment & Plan: Patient taking atorvastatin, continue medical management. (14) Mitral regurgitation Status: Chronic Assessment & Plan: Continue medical management. Appreciate cardiology recommendations. (15) Pulmonary hypertension Status: Chronic Assessment & Plan: Secondary to heart failure. (16) Peripheral arterial disease Status: Chronic Assessment & Plan: Continue medical management. Patient prescribed atorvastatin. (17) Elevated bilirubin Status: Acute Assessment & Plan: Uncertain etiology, CT without liver abnormality. (18) DVT prophylaxis Status: Acute Assessment & Plan: Dabigatran Hospital Course Date of Admission: Mar 25, 2022 at 22:00 Admission Diagnosis : Family Physician/Provider: [place]/Counts Include [address] [facility] Date of Discharge: 03/29/22 Discharge Diagnosis: [ ] Hospital Course: [ ] Labs and Pending Lab Test: Laboratory Tests 03/28/22 16:05: Glucometer 185H 03/28/22 20:29: Glucometer 127H 03/29/22 05:10: White Blood Count 7.3, Red Blood Count 3.11L, Hemoglobin 8.1L, Hematocrit 25L, Mean Corpuscular Volume 81, Mean Corpuscular Hemoglobin 26, Mean Corpuscular Hemoglobin Concent 32, Red Cell Distribution Width 18.6H, Platelet Count 80L, Mean Platelet Volume , Immature Granulocyte % (Auto) 5, Neutrophils (%) (Auto) 51, Lymphocytes (%) (Auto) 21, Monocytes (%) (Auto) 23H, Eosinophils (%) (Auto) 1, Basophils (%) (Auto) 0, Neutrophils # (Auto) 3.7, Lymphocytes # (Auto) 1.5, Monocytes # (Auto) 1.7H, Eosinophils # (Auto) 0.0, Basophils # (Auto) 0.0, Immature Granulocyte # (Auto) 0.4H, Percent Immature Platelet Fraction 15.3H, Sodium Level 139, Potassium Level 4.1, Chloride Level 103, Carbon Dioxide Level 22, Anion Gap 14, Blood Urea Nitrogen 64H, Creatinine 2.33H, Estimat Glomerular Filtration Rate 29, BUN/Creatinine Ratio 27, Glucose Level 126H, Calcium Level 9.1 03/29/22 11:19: Glucometer 165H Home Meds Active K-Tab ER (Potassium Chloride) 10 Meq Tablet.er 10 Meq PO DAILY Lasix (Furosemide) 40 Mg Tablet 40 Mg PO BID Pantoprazole Sodium 40 Mg Tablet.dr 40 Mg PO BID Aspirin EC (Aspirin) 81 Mg Tablet.dr 81 Mg PO DAILY Carvedilol 6.25 Mg Tablet 6.25 Mg PO BID Flomax (Tamsulosin HCl) 0.4 Mg Cap 0.4 Mg PO DAILY@1800 Reported Eye Multivitamin Tablet (Vit A/Vit C/Vit E/Zinc/Copper) 2,148-113 Tablet 1 Each PO DAILY Magnesium Oxide 400 Mg (241.3 Mg Magnesium) Tablet 400 Mg PO BID Hydrocodone-Acetamin 7.5-325 (Hydrocodone/Acetaminophen) 7.5 Mg-325 Mg Tablet 1 Ea PO Q6H PRN Fish Oil 1,000 mg Softgel ([place]-3/Dha/Epa/Fish Oil) 1,000 Mg (120 Mg-180 Mg) Capsule 1,000 Mg PO DAILY Trazodone HCl 100 Mg Tablet 100 Mg PO HS Toujeo Solostar (Insulin Glargine,Hum.rec.anlog) 300 Unit/Ml (1.5 Ml) Insuln.pen 40 Unit SQ DAILY Atorvastatin Calcium 10 Mg Tablet 10 Mg PO HS Victoza 3-Benny (Liraglutide) 0.6 Mg/0.1 Ml (18 Mg/3 Ml) Pen.injctr 0.6 Mg SQ DAILY Levothyroxine Sodium 100 Mcg Tablet 100 Mcg PO DAILY Activity as Tolerated: Yes Discharge Physical Examination Allergies: Coded Allergies: No Known Drug Allergies (Verified , 04/20/08) General Appearance: No Apparent Distress, WD/WN Respiratory: Chest Non Tender, Lungs Clear, Normal Breath Sounds, No Accessory Muscle Use, No Respiratory Distress Cardiovascular: Regular Rate, Rhythm (Possible PVC heard on auscultation x1), No Gallop, No JVD, Normal Peripheral Pulses (2+ radial pulses bilaterally) Extremity: Swelling (Bilateraly non-pitting edema of both shins and ankles) Skin: Other (Both legs show signs of venous stasis changes) Neurologic/Psychiatric: Alert, Oriented x3 Discharge Summary Date of Admission Mar 25, 2022 at 22:00 Date of Discharge Discharge Date: Mar 29, 2022 Admission Diagnosis 1. Acute on chronic systolic heart failure secondary to combination of ischemic heart disease and atrial fibrillation. Dr. Heller plans likely cardioversion tomorrow. 2. Significant microcytic anemia hemoglobin up slightly today 7.7 compared to yesterday with history compatible with melena most likely indicative of an upper GI bleed. For this reason we will need to hold aspirin we will give IV iron today and consult surgery consideration for endoscopy. Will initiate empiric proton pump inhibitor therapy pantoprazole 40 mg twice daily. 3. Type 2 diabetes bolus therapy and additional sliding scale insulin has been initiated the emergency room we will continue to monitor blood sugars. Discharge Diagnosis All discharge diagnoses discussed under hospital course. Clinical Quality Measures AMI/AHF: D/C Medications Addressed: Beta ericka, Diuretic ASA po Prior to arrival: No DVT/VTE Risk/Contraindication: VTE Addressed: Yes JOE GALLEGOS MD 03/31/22 0841: Discharge Summary Discharge Physical Examination Allergies: Coded Allergies: No Known Drug Allergies (Verified , 04/20/08) Supervisory-Addendum Brief Verification & Attestation Participated in pt care: history, MDM, physical Personally performed: exam, history, MDM, supervision of care Care discussed with: Medical Student NOMI GARCIA Mar 29, 2022 15:33 JOE GALLEGOS MD Mar 31, 2022 08:41
--- NOTE | 2022-03-29 17:00 | CONSULTATION REPORT ---
DATE OF SERVICE: 03/29/2022 ADMITTING PHYSICIAN: Dr. Granados. HISTORY OF PRESENT ILLNESS: The patient is a 76-year-old male who presented to the Emergency Department by private vehicle for shortness of breath as well as chest pain. He has a longstanding history of coronary artery disease as well as peripheral vascular disease and has had two myocardial infarctions in the past and also has undergone coronary artery bypass grafting x3 vessels in the past. The patient was also found to be in atrial fibrillation, which he has a known history of as well. We were consulted due to persistent bleeding from peripheral vein to obtain hemostasis. PAST MEDICAL HISTORY: Coronary artery disease, peripheral vascular disease, bilateral lower extremity edema, history of myocardial infarction, hypercholesterolemia, hypertension, nephrolithiasis, diabetes, hypothyroid. PAST SURGICAL HISTORY: Coronary artery bypass grafting x3 vessels, left lower extremity fem-pop bypass, abdominal hernia repair. ALLERGIES: NO KNOWN DRUG ALLERGIES. MEDICATIONS: Aspirin 81 mg daily, atorvastatin 10 mg daily, carvedilol 6.25 mg b.i.d., furosemide 40 mg daily, hydrocodone p.r.n., glargine insulin 40 units daily, levothyroxine 100 mcg daily, Victoza daily, Protonix 40 mg daily, Pradaxa daily, tamsulosin 0.4 mg daily, potassium 10 mEq daily, trazodone 100 mg each day at bedtime. SOCIAL HISTORY: Previous smoker, 50 pack years, quit 2002. Negative alcohol. FAMILY HISTORY: Noncontributory. VITAL SIGNS: Temperature 36.4, blood pressure 123/60, pulse 92, respirations 20, pulse ox 96% on room air. REVIEW OF SYSTEMS: A well-nourished male in no acute distress. He is not experiencing any shortness of breath or difficulty breathing. No chest pain, palpitations, diaphoresis. No nausea or vomiting. No diarrhea or constipation. No fever or chills. No recent inadvertent weight loss. He has a persistently venous oozing from right antecubital peripheral IV access, which continued to bleed despite holding pressure for greater than 30 minutes. PHYSICAL EXAMINATION: CHEST: Few scattered rales bilaterally. HEART: Regular, no murmurs. EXTREMITIES: A +1/3 bilateral lower extremity edema, negative Homans sign. HEENT: No scleral icterus. NECK: No cervical lymphadenopathy. ABDOMEN: Soft, nontender, nondistended. SKIN: There is a venous oozing coming from the right antecubital vein from a previous peripheral IV site, which is persistent despite pressure for 30 minutes. There is no arterial bleeding component. SKIN: Warm, dry. ASSESSMENT AND PLAN: A 76-year-old male with persistent bleeding from the antecubital vein. We will proceed with suture hemostasis of the vein and then also proceed with a pressure dressing. Once this is established, he may be discharged home. Job ID: [id number] DocumentID: [id number] Dictated Date: 03/29/2022 15:56:07 Unit Receptionist Date: 03/29/2022 16:59:52 Dictated By: JORGE LANGSTON MD
--- NOTE | 2022-03-29 21:42 | OPERATIVE REPORT ---
DATE OF SERVICE: 03/29/2022 PREPROCEDURE DIAGNOSIS: Persistent bleeding, right upper extremity antecubital vein. POSTPROCEDURE DIAGNOSIS: Persistent bleeding, right upper extremity antecubital vein. PROCEDURE: Hemostasis with suture ligation of the antecubital vein. SURGEON: Jorge Langston MD. ANESTHESIA: Local. ESTIMATED BLOOD LOSS: Minimal. DISPOSITION: The patient tolerated the procedure well. INDICATIONS: The patient is a 76-year-old male, who came in with chest pain and shortness of breath. He has a longstanding history of coronary artery disease and has had two myocardial infarctions in the past as well as open heart surgery and bypassing of three vessels. He also has a history of atrial fibrillation and was found to be in atrial fibrillation upon admission. He was cardioverted. He had a right upper extremity antecubital peripheral vein. The patient was started on Pradaxa for anticoagulation. Once the peripheral IV was removed, there was persistent bleeding despite 30 minutes of direct pressure. We will proceed with hemostasis of the peripheral bleeding. DESCRIPTION OF PROCEDURE: The right antecubital region was prepped and draped in standard surgical fashion. Using 2-0 silk suture, we proceeded to place 2 [id number] sutures in the antecubital region and encompassing the skin and subcutaneous tissue with visualization of good hemostasis. Wound was then cleaned and covered with gauze followed by a Hamzah wrap. The patient tolerated the procedure well. He will be instructed to remove the suture in approximately 1 week and to keep the area clean and dry. Job ID: [id number] DocumentID: [id number] Dictated Date: 03/29/2022 15:58:45 Psych Tech Date: 03/29/2022 21:41:48 Dictated By: JORGE LANGSTON MD
== END 2022-03-29 16:04 | disposition home or self-care (01) | DRG 264 ==
LOC: EDUNIT# 19:41 → ER 19:44 → ICU 22:00 → CSD 03-26 15:34
PROVIDERS: ADMIT Internal Medicine; ATTEND Family Medicine
PROC: 0X363ZZ Control Bleeding in Right Upper Extremity, Percutaneous Approach (ICD-10-PCS; principal; 2022-03-29)
DX: I13.0 Hypertensive heart and chronic kidney disease with heart failure and stage 1 through stage 4 chronic kidney disease, or unspecified chronic kidney disease (principal); I50.23 Acute on chronic systolic (congestive) heart failure; I21.4 Non-ST elevation (NSTEMI) myocardial infarction; K72.00 Acute and subacute hepatic failure without coma; N17.9 Acute kidney failure, unspecified; T82.838A Hemorrhage due to vascular prosthetic devices, implants and grafts, initial encounter; C92.10 Chronic myeloid leukemia, BCR/ABL-positive, not having achieved remission; E11.22 Type 2 diabetes mellitus with diabetic chronic kidney disease; N18.9 Chronic kidney disease, unspecified; I25.110 Atherosclerotic heart disease of native coronary artery with unstable angina pectoris; I25.710 Atherosclerosis of autologous vein coronary artery bypass graft(s) with unstable angina pectoris; I08.1 Rheumatic disorders of both mitral and tricuspid valves; I27.20 Pulmonary hypertension, unspecified; D69.6 Thrombocytopenia, unspecified; D64.9 Anemia, unspecified; I73.9 Peripheral vascular disease, unspecified; I48.0 Paroxysmal atrial fibrillation; R00.1 Bradycardia, unspecified; E78.00 Pure hypercholesterolemia, unspecified; M10.9 Gout, unspecified; E03.9 Hypothyroidism, unspecified; I65.23 Occlusion and stenosis of bilateral carotid arteries; I25.2 Old myocardial infarction; Z79.4 Long term (current) use of insulin; Z79.84 Long term (current) use of oral hypoglycemic drugs; Z87.891 Personal history of nicotine dependence; Z95.1 Presence of aortocoronary bypass graft; Z95.820 Peripheral vascular angioplasty status with implants and grafts
CPT/HCPCS: 36415; 71045; 74176; 80048; 80053; 80061; 80162; 82274; 82947; 83690; 83735; 83874; 83880; 84484; 85007; 85014; 85018; 85025; 85027; 85379; 85610; 85730; 86850; 86900; 86901; 86920; 93005; 93041; 93312; 96372; 96374

== ENCOUNTER → 2022-04-19 | Outpatient (CLI) | payer MEDICARE, OTHER ==
[~2022-04-19] VITALS: Ht 188 cm; Wt 103.3 kg
[~2022-04-19] MED LIST changes: +ASPI-1238 PO; +CARV6.252 PO; +DIGO250T3 PO; +FERR325T24 PO; +FURO-124 PO; +HYDR-3817 PO; +MGX400T PO; +OMEG100032 PO; +PANT40TA52 PO; +POTA10TA PO; +VIT-31 PO
== END | disposition home or self-care (01) ==
LOC: PREOP 06:11
PROVIDERS: ATTEND Surgery
DX: Z01.818 Encounter for other preprocedural examination (principal)

== ENCOUNTER 2022-04-26 08:39 | Outpatient (RCR) | payer MEDICARE, OTHER ==
[2022-04-26 09:01] LABS: BASOPHILS % (AUTO) 0 % (0-10); EOSINOPHILS % (AUTO) 1 % (0-10); HEMATOCRIT 26 % (40-54); LYMPHOCYTES # (AUTO) 1.3 10^3/uL (1.0-4.0); LYMPHOCYTES % (AUTO) 21 % (12-44); MEAN CORPUSCULAR HEMOGLOBIN 25 pg (25-34); MEAN CORPUSCULAR HGB CONC 30 g/dL (32-36); MEAN CORPUSCULAR VOLUME 84 fL (80-99); MONOCYTES # (AUTO) 1.3 10^3/uL (0.0-1.0); MONOCYTES % (AUTO) 21 % (0-12); NEUTROPHILS # (AUTO) 3.4 10^3/uL (1.8-7.8); NEUTROPHILS % (AUTO) 55 % (42-75); PLATELET COUNT 88 10^3/uL (130-400); WHITE BLOOD COUNT 6.2 10^3/uL (4.3-11.0)
== END 2022-05-12 14:20 | disposition home or self-care (01) ==
LOC: ONC 08:39
PROVIDERS: ATTEND Internal Medicine Hematology & Oncology
DX: C93.10 Chronic myelomonocytic leukemia not having achieved remission (principal); D50.9 Iron deficiency anemia, unspecified; E11.9 Type 2 diabetes mellitus without complications; I10 Essential (primary) hypertension; E03.9 Hypothyroidism, unspecified
CPT/HCPCS: 82728; 83540; 83550; G0463; 36415; 85025; 99213

== ENCOUNTER 2022-05-01 11:38 | Day surgery (SDC) | payer MEDICARE, OTHER ==
[2022-05-01] VITALS (7 sets, daily range): BP systolic 97–129; BP diastolic 50–88
[~2022-05-01] VITALS: Ht 188 cm; Wt 103.3 kg
[2022-05-01] MEDS ORDERED: LACTATED RINGERS 1,000 ML IV STA (11:43)
[2022-05-01] MEDS: HURRICAINE EXT TUBE (BENZOCAINE) XX PRN ×2 (11:54→14:03)
[2022-05-01] MEDS ORDERED: LACTATED RINGERS 1,000 ML IV ONE (12:04)
--- NOTE | 2022-05-01 12:54 | Progress Note-Pre Operative ---
Pre-Operative Progress Note Date of Available H&P: Apr 11, 2022 Date H&P Reviewed: May 01, 2022 Time H&P Reviewed: 12:51 History & Physical: H&P Reviewed, Patient Examed, No changes noted Pre-Operative Diagnosis: melena, anemia AUGUSTIN AJ DO May 01, 2022 12:54
[2022-05-01] MEDS ORDERED: MIDAZOLAM 2 MG/2 ML (VERSED) VIAL ONE (14:06)
[2022-05-01] MEDS ORDERED: PROPOFOL INJECTION 50 ML IV ONE (14:06)
--- NOTE | 2022-05-01 14:48 | Anesthesia-General Post-Op ---
MAC Patient Condition Mental Status/LOC: Same as Preop Cardiovascular: Satisfactory Nausea/Vomiting: Absent Respiratory: Satisfactory Pain: Controlled Complications: Absent Post Op Complications Complications None Follow Up Care/Instructions Patient Instructions None needed. Anesthesiology Discharge Order Discharge Order Patient is doing well, no complaints, stable vital signs, no apparent adverse anesthesia problems. No complications reported per nursing. COSME HORNE CRNA May 01, 2022 14:48
--- NOTE | 2022-05-01 14:50 | Progress Note-Post Operative ---
Post-Operative Progess Note Surgeon (s)/Diecast Machine Operator (s) Surgeon AUGUSTIN AJ DO Diecast Machine Operator: Jomar Bacon, MSIII Pre-Operative Diagnosis melena, anemia Post-Operative Diagnosis Gastric ulcer Gastritis Hiatal hernia polyp diverticula int hemorrhoids Procedure & Operative Findings Date of Procedure 05/01/22 Procedure Performed/Findings EGD with biopsy Colonoscopy with snare polypectomy PROCEDURE NOTE: After informed consent was obtained, the patient was brought to the endoscopy suite, placed in bed in left lateral decubitus position. He was administered IV sedation by the ATTIC BLOWER who then monitored vitals the entire time, heart rate, blood pressure and pulse ox and the scope was inserted down the mouth through the esophagus into the stomach. On the way down, noted some mild esophagitis, took a picture, pushed into the stomach, pushed past the antrum into the duodenum. Duodenum looked good. On the way in had noted a clot, flushed it off with water and saw a pinpoint bleeding area; possibly an ulcer. Pulled back and did a biopsy of this bleeding area in the antrum and then tried to cauterize it with biopsy forceps. Next, retroflexed the scope, saw a small (0.5cm) hiatal hernia, took a picture of this and then pulled the scope into the GE junction, took another picture of the hiatal hernia and then did a biopsy of the GE junction. Pushed the scope back into the stomach, suctioned all the air out of the stomach. At this point pulled the scope up the esophagus and out the mouth. Switched camera, switched gloves, went down below and started the colonoscopy. Pushed all the way in to about 140 cm to get all the way to cecum. Took a picture of the appendiceal orifice, noted the ileocecal valve and then slowly withdrew the scope, insufflating to look circumferentially at the kruger starting in the cecum, up the ascending colon to the hepatic flexure, then down the transverse colon. In the transverse colon saw a large polyp and a small polyp; used the snare to remove them both. Continued to the splenic flexure, into the descending colon and down through the sigmoid. Throughout here there were a lot of diverticula and took a picture of them. Finally into the rectum, retroflexed in the rectal vault, saw some minimal internal hemorrhoids and took a picture of them. The patient tolerated the procedure and he recovered in the endoscopy suite. Recommended for repeat colonoscopy in 5 years Anesthesia Type IV sedation by ATTIC BLOWER Estimated Blood Loss Estimated blood loss (mL): scant Specimens/Packing Specimens Removed gastric ulcer GE jxn transverse colon polyps AUGUSTIN AJ DO May 01, 2022 14:50
--- NOTE | 2022-05-01 14:52 | Endoscopy Discharge Instruct ---
Endo Procedure/Findings Findings 1.: Gastric Ulcer 2.: Hiatal Hernia 3.: Polyp 4.: Diverticulosis, Internal Hemorrhoids Discharge Instructions - Activity: You might feel a little sleepy until tomorrow. This is due to the me dicine you received to relax you. Until tomorrow, you should: NOT drive a car, operate machinery or power tools. NOT drink any alcoholic beverages. NOT make any important decisions or sign importortant papers. Do not return to work until tomorrow, unless otherwise instructed. Resume previous activities tomorrow. Diet: Start by taking liquids. If you tolerate liquids, advance to solid food. 1.: EGD in 6-8 weeks 2.: Colonscopy in 5 years Notify Physician - If you experience excessive bleeding, unusual abdominal pain, fever, or chest pain, contact your doctor immediately. AUGUSTIN AJ DO May 01, 2022 14:52
== END 2022-05-01 15:40 | disposition home or self-care (01) ==
LOC: ENDO 11:38
PROVIDERS: ATTEND Surgery
DX: D12.3 Benign neoplasm of transverse colon (principal); K21.00 Gastro-esophageal reflux disease with esophagitis, without bleeding; K31.89 Other diseases of stomach and duodenum; E11.9 Type 2 diabetes mellitus without complications; Z87.891 Personal history of nicotine dependence; Z79.84 Long term (current) use of oral hypoglycemic drugs; E66.9 Obesity, unspecified; Z68.29 Body mass index [BMI] 29.0-29.9, adult; D64.9 Anemia, unspecified; K44.9 Diaphragmatic hernia without obstruction or gangrene; K64.8 Other hemorrhoids; K57.30 Diverticulosis of large intestine without perforation or abscess without bleeding; K25.7 Chronic gastric ulcer without hemorrhage or perforation; K92.1 Melena

== ENCOUNTER 2022-06-07 12:06 | Outpatient (RCR) | payer MEDICARE, OTHER ==
[2022-05-18 11:12] LABS: BASOPHILS % (AUTO) 0 % (0-10); EOSINOPHILS % (AUTO) 1 % (0-10); HEMATOCRIT 27 % (40-54); HEMOGLOBIN 7.8 g/dL (13.3-17.7); LYMPHOCYTES # (AUTO) 1.6 10^3/uL (1.0-4.0); LYMPHOCYTES % (AUTO) 34 % (12-44); MEAN CORPUSCULAR HEMOGLOBIN 25 pg (25-34); MEAN CORPUSCULAR HGB CONC 29 g/dL (32-36); MEAN CORPUSCULAR VOLUME 85 fL (80-99); MONOCYTES # (AUTO) 0.7 10^3/uL (0.0-1.0); MONOCYTES % (AUTO) 15 % (0-12); NEUTROPHILS # (AUTO) 2.3 10^3/uL (1.8-7.8); NEUTROPHILS % (AUTO) 49 % (42-75); WHITE BLOOD COUNT 4.6 10^3/uL (4.3-11.0)
[2022-05-18 11:22] LABS: PLATELET COUNT 60 10^3/uL (130-400)
[2022-05-19 10:25] LABS: HEMOGLOBIN 7.7 g/dL (13.3-17.7)
[2022-05-19 10:27] LABS: BASOPHILS % (AUTO) 0 % (0-10); EOSINOPHILS # (AUTO) 0.1 10^3/uL (0.0-0.3); EOSINOPHILS % (AUTO) 2 % (0-10); HEMATOCRIT 26 % (40-54); LYMPHOCYTES # (AUTO) 1.4 10^3/uL (1.0-4.0); LYMPHOCYTES % (AUTO) 29 % (12-44); MEAN CORPUSCULAR HEMOGLOBIN 25 pg (25-34); MEAN CORPUSCULAR HGB CONC 30 g/dL (32-36); MEAN CORPUSCULAR VOLUME 85 fL (80-99); MONOCYTES # (AUTO) 0.9 10^3/uL (0.0-1.0); MONOCYTES % (AUTO) 18 % (0-12); NEUTROPHILS # (AUTO) 2.5 10^3/uL (1.8-7.8); NEUTROPHILS % (AUTO) 50 % (42-75); PLATELET COUNT 55 10^3/uL (130-400)
[2022-05-22 12:13] LABS: BASOPHILS % (AUTO) 0 % (0-10); EOSINOPHILS % (AUTO) 1 % (0-10); HEMATOCRIT 25 % (40-54); HEMOGLOBIN 7.4 g/dL (13.3-17.7); LYMPHOCYTES # (AUTO) 1.3 10^3/uL (1.0-4.0); LYMPHOCYTES % (AUTO) 31 % (12-44); MEAN CORPUSCULAR HEMOGLOBIN 25 pg (25-34); MEAN CORPUSCULAR HGB CONC 30 g/dL (32-36); MEAN CORPUSCULAR VOLUME 84 fL (80-99); MONOCYTES # (AUTO) 0.7 10^3/uL (0.0-1.0); MONOCYTES % (AUTO) 18 % (0-12); NEUTROPHILS # (AUTO) 1.9 10^3/uL (1.8-7.8); NEUTROPHILS % (AUTO) 47 % (42-75); PLATELET COUNT 66 10^3/uL (130-400); WHITE BLOOD COUNT 4.1 10^3/uL (4.3-11.0)
[2022-05-29 10:38] LABS: BASOPHILS % (AUTO) 0 % (0-10); EOSINOPHILS # (AUTO) 0.1 10^3/uL (0.0-0.3); EOSINOPHILS % (AUTO) 2 % (0-10); HEMOGLOBIN 7.7 g/dL (13.3-17.7); PLATELET COUNT 56 10^3/uL (130-400)
[2022-05-29 10:40] LABS: HEMATOCRIT 26 % (40-54); LYMPHOCYTES # (AUTO) 1.5 10^3/uL (1.0-4.0); LYMPHOCYTES % (AUTO) 32 % (12-44); MEAN CORPUSCULAR HEMOGLOBIN 25 pg (25-34); MEAN CORPUSCULAR HGB CONC 30 g/dL (32-36); MEAN CORPUSCULAR VOLUME 84 fL (80-99); MONOCYTES # (AUTO) 0.9 10^3/uL (0.0-1.0); MONOCYTES % (AUTO) 18 % (0-12); NEUTROPHILS # (AUTO) 2.1 10^3/uL (1.8-7.8); NEUTROPHILS % (AUTO) 43 % (42-75); WHITE BLOOD COUNT 4.8 10^3/uL (4.3-11.0)
[2022-05-29 11:06] LABS: ALBUMIN 3.9 GM/DL (3.2-4.5); BILIRUBIN,TOTAL 1.1 MG/DL (0.1-1.0); CALCIUM 8.9 MG/DL (8.5-10.1); CREATININE SERUM 2.42 MG/DL (0.60-1.30); POTASSIUM 4.1 MMOL/L (3.6-5.0)
[~2022-06-07 12:06] MED LIST changes: +FERRIC CARBOXYMALTOSE INJ 750 MG in NS (IVPB) 250 ML IV SCH
[2022-06-07 12:49] LABS: BASOPHILS % (AUTO) 0 % (0-10); EOSINOPHILS # (AUTO) 0.1 10^3/uL (0.0-0.3); EOSINOPHILS % (AUTO) 2 % (0-10); HEMOGLOBIN 7.2 g/dL (13.3-17.7); MONOCYTES # (AUTO) 0.8 10^3/uL (0.0-1.0)
[2022-06-07 12:50] LABS: HEMATOCRIT 24 % (40-54); LYMPHOCYTES # (AUTO) 1.3 10^3/uL (1.0-4.0); LYMPHOCYTES % (AUTO) 30 % (12-44); MEAN CORPUSCULAR HEMOGLOBIN 25 pg (25-34); MEAN CORPUSCULAR HGB CONC 30 g/dL (32-36); MEAN CORPUSCULAR VOLUME 83 fL (80-99); MONOCYTES % (AUTO) 19 % (0-12); NEUTROPHILS # (AUTO) 1.9 10^3/uL (1.8-7.8); NEUTROPHILS % (AUTO) 45 % (42-75); PLATELET COUNT 64 10^3/uL (130-400); WHITE BLOOD COUNT 4.3 10^3/uL (4.3-11.0)
== END 2022-06-12 | disposition home or self-care (01) ==
LOC: ONC 12:06
PROVIDERS: ATTEND Internal Medicine Hematology & Oncology
DX: C93.10 Chronic myelomonocytic leukemia not having achieved remission (principal); D50.9 Iron deficiency anemia, unspecified; E03.9 Hypothyroidism, unspecified; E11.22 Type 2 diabetes mellitus with diabetic chronic kidney disease; I13.0 Hypertensive heart and chronic kidney disease with heart failure and stage 1 through stage 4 chronic kidney disease, or unspecified chronic kidney disease; N18.30 Chronic kidney disease, stage 3 unspecified; I50.9 Heart failure, unspecified; I25.10 Atherosclerotic heart disease of native coronary artery without angina pectoris; E78.2 Mixed hyperlipidemia
CPT/HCPCS: 36415; 80053; 82728; 83540; 83550; 85025; 96365; 99213

== ENCOUNTER → 2022-07-12 | Outpatient (RCR) | payer MEDICARE, OTHER ==
[2022-06-14 09:01] LABS: NEUTROPHILS # (AUTO) 1.7 10^3/uL (1.8-7.8)
[2022-06-14 09:03] LABS: BASOPHILS % (AUTO) 1 % (0-10); EOSINOPHILS % (AUTO) 1 % (0-10); HEMATOCRIT 21 % (40-54); LYMPHOCYTES # (AUTO) 1.1 10^3/uL (1.0-4.0); LYMPHOCYTES % (AUTO) 32 % (12-44); MEAN CORPUSCULAR HEMOGLOBIN 26 pg (25-34); MEAN CORPUSCULAR HGB CONC 30 g/dL (32-36); MEAN CORPUSCULAR VOLUME 87 fL (80-99); MONOCYTES # (AUTO) 0.4 10^3/uL (0.0-1.0); MONOCYTES % (AUTO) 13 % (0-12); NEUTROPHILS % (AUTO) 49 % (42-75); WHITE BLOOD COUNT 3.5 10^3/uL (4.3-11.0)
[2022-06-14 09:06] LABS: HEMOGLOBIN 6.3 g/dL (13.3-17.7)
[2022-06-14 09:07] LABS: PLATELET COUNT 47 10^3/uL (130-400)
[2022-06-16 10:17] LABS: BASOPHILS % (AUTO) 1 % (0-10); HEMOGLOBIN 8.6 g/dL (13.3-17.7); MEAN CORPUSCULAR VOLUME 87 fL (80-99)
[2022-06-16 10:19] LABS: EOSINOPHILS # (AUTO) 0.1 10^3/uL (0.0-0.3); EOSINOPHILS % (AUTO) 2 % (0-10); HEMATOCRIT 28 % (40-54); LYMPHOCYTES # (AUTO) 1.2 10^3/uL (1.0-4.0); LYMPHOCYTES % (AUTO) 27 % (12-44); MEAN CORPUSCULAR HEMOGLOBIN 27 pg (25-34); MEAN CORPUSCULAR HGB CONC 31 g/dL (32-36); MONOCYTES # (AUTO) 0.7 10^3/uL (0.0-1.0); MONOCYTES % (AUTO) 16 % (0-12); NEUTROPHILS # (AUTO) 2.1 10^3/uL (1.8-7.8); NEUTROPHILS % (AUTO) 49 % (42-75); PLATELET COUNT 48 10^3/uL (130-400); WHITE BLOOD COUNT 4.4 10^3/uL (4.3-11.0)
[2022-06-21 09:23] LABS: MEAN CORPUSCULAR HGB CONC 31 g/dL (32-36)
[2022-06-21 09:25] LABS: BASOPHILS % (AUTO) 1 % (0-10); EOSINOPHILS # (AUTO) 0.1 10^3/uL (0.0-0.3); EOSINOPHILS % (AUTO) 2 % (0-10); HEMATOCRIT 33 % (40-54); HEMOGLOBIN 10.2 g/dL (13.3-17.7); LYMPHOCYTES # (AUTO) 1.3 10^3/uL (1.0-4.0); LYMPHOCYTES % (AUTO) 31 % (12-44); MEAN CORPUSCULAR HEMOGLOBIN 27 pg (25-34); MEAN CORPUSCULAR VOLUME 89 fL (80-99); MONOCYTES # (AUTO) 0.7 10^3/uL (0.0-1.0); MONOCYTES % (AUTO) 16 % (0-12); NEUTROPHILS # (AUTO) 1.9 10^3/uL (1.8-7.8); NEUTROPHILS % (AUTO) 46 % (42-75); WHITE BLOOD COUNT 4.1 10^3/uL (4.3-11.0)
[2022-06-21 09:26] LABS: PLATELET COUNT 61 10^3/uL (130-400)
[2022-06-29 10:17] LABS: EOSINOPHILS # (AUTO) 0.1 10^3/uL (0.0-0.3); MEAN CORPUSCULAR HGB CONC 31 g/dL (32-36); NEUTROPHILS # (AUTO) 2.4 10^3/uL (1.8-7.8)
[2022-06-29 10:19] LABS: BASOPHILS % (AUTO) 0 % (0-10); EOSINOPHILS % (AUTO) 2 % (0-10); HEMATOCRIT 34 % (40-54); HEMOGLOBIN 10.7 g/dL (13.3-17.7); LYMPHOCYTES # (AUTO) 1.4 10^3/uL (1.0-4.0); LYMPHOCYTES % (AUTO) 30 % (12-44); MEAN CORPUSCULAR HEMOGLOBIN 28 pg (25-34); MEAN CORPUSCULAR VOLUME 90 fL (80-99); MONOCYTES # (AUTO) 0.6 10^3/uL (0.0-1.0); MONOCYTES % (AUTO) 14 % (0-12); NEUTROPHILS % (AUTO) 51 % (42-75); PLATELET COUNT 57 10^3/uL (130-400); WHITE BLOOD COUNT 4.7 10^3/uL (4.3-11.0)
[2022-07-05 09:17] LABS: EOSINOPHILS # (AUTO) 0.1 10^3/uL (0.0-0.3); MEAN CORPUSCULAR HGB CONC 32 g/dL (32-36); MONOCYTES # (AUTO) 0.6 10^3/uL (0.0-1.0)
[2022-07-05 09:19] LABS: BASOPHILS % (AUTO) 1 % (0-10); EOSINOPHILS % (AUTO) 1 % (0-10); HEMATOCRIT 33 % (40-54); HEMOGLOBIN 10.4 g/dL (13.3-17.7); LYMPHOCYTES # (AUTO) 1.2 10^3/uL (1.0-4.0); LYMPHOCYTES % (AUTO) 28 % (12-44); MEAN CORPUSCULAR HEMOGLOBIN 29 pg (25-34); MEAN CORPUSCULAR VOLUME 91 fL (80-99); MONOCYTES % (AUTO) 14 % (0-12); NEUTROPHILS # (AUTO) 2.3 10^3/uL (1.8-7.8); NEUTROPHILS % (AUTO) 51 % (42-75); WHITE BLOOD COUNT 4.4 10^3/uL (4.3-11.0)
[2022-07-05 09:20] LABS: PLATELET COUNT 58 10^3/uL (130-400)
[~2022-07-12] MED LIST changes: +NS IV 500 ML 500 ML IV ONE
[2022-07-12 09:43] LABS: HEMOGLOBIN 10.3 g/dL (13.3-17.7); WHITE BLOOD COUNT 4.2 10^3/uL (4.3-11.0)
[2022-07-12 09:44] LABS: BASOPHILS % (AUTO) 1 % (0-10); EOSINOPHILS % (AUTO) 1 % (0-10); HEMATOCRIT 32 % (40-54); LYMPHOCYTES % (AUTO) 23 % (12-44); MEAN CORPUSCULAR HEMOGLOBIN 29 pg (25-34); MEAN CORPUSCULAR HGB CONC 32 g/dL (32-36); MEAN CORPUSCULAR VOLUME 92 fL (80-99); MONOCYTES # (AUTO) 0.9 10^3/uL (0.0-1.0); MONOCYTES % (AUTO) 20 % (0-12); NEUTROPHILS # (AUTO) 2.2 10^3/uL (1.8-7.8); NEUTROPHILS % (AUTO) 52 % (42-75); PLATELET COUNT 55 10^3/uL (130-400)
== END | disposition home or self-care (01) ==
LOC: ONC 06-14 08:38
PROVIDERS: ATTEND Internal Medicine Hematology & Oncology
DX: Z51.11 Encounter for antineoplastic chemotherapy (principal); C93.10 Chronic myelomonocytic leukemia not having achieved remission; D50.9 Iron deficiency anemia, unspecified; E03.9 Hypothyroidism, unspecified; E11.22 Type 2 diabetes mellitus with diabetic chronic kidney disease; I13.0 Hypertensive heart and chronic kidney disease with heart failure and stage 1 through stage 4 chronic kidney disease, or unspecified chronic kidney disease; N18.30 Chronic kidney disease, stage 3 unspecified; I50.9 Heart failure, unspecified; I25.10 Atherosclerotic heart disease of native coronary artery without angina pectoris; E78.2 Mixed hyperlipidemia
CPT/HCPCS: 36430; 85025; 86850; 86900; 86901; 86920; 96365; P9016; 36415; 82728; 83540; 83550; 99213

== ENCOUNTER 2022-07-25 10:06 | Outpatient (RCR) | payer MEDICARE, OTHER ==
[2022-07-20 10:00] LABS: EOSINOPHILS # (AUTO) 0.1 10^3/uL (0.0-0.3); MEAN CORPUSCULAR HGB CONC 32 g/dL (32-36)
[2022-07-20 10:02] LABS: BASOPHILS % (AUTO) 1 % (0-10); EOSINOPHILS % (AUTO) 2 % (0-10); HEMATOCRIT 30 % (40-54); HEMOGLOBIN 9.6 g/dL (13.3-17.7); LYMPHOCYTES # (AUTO) 1.1 10^3/uL (1.0-4.0); LYMPHOCYTES % (AUTO) 21 % (12-44); MEAN CORPUSCULAR HEMOGLOBIN 29 pg (25-34); MEAN CORPUSCULAR VOLUME 91 fL (80-99); MONOCYTES # (AUTO) 0.8 10^3/uL (0.0-1.0); MONOCYTES % (AUTO) 15 % (0-12); NEUTROPHILS % (AUTO) 58 % (42-75); PLATELET COUNT 96 10^3/uL (130-400); WHITE BLOOD COUNT 5.2 10^3/uL (4.3-11.0)
[~2022-07-25 10:06] MED LIST changes: -FERRIC CARBOXYMALTOSE INJ 750 MG in NS (IVPB) 250 ML IV SCH; -NS IV 500 ML 500 ML IV ONE
[2022-07-25 10:29] LABS: BASOPHILS % (AUTO) 0 % (0-10); EOSINOPHILS # (AUTO) 0.1 10^3/uL (0.0-0.3); EOSINOPHILS % (AUTO) 1 % (0-10); HEMATOCRIT 32 % (40-54); HEMOGLOBIN 10.3 g/dL (13.3-17.7); LYMPHOCYTES # (AUTO) 1.3 10^3/uL (1.0-4.0); LYMPHOCYTES % (AUTO) 22 % (12-44); MEAN CORPUSCULAR HEMOGLOBIN 29 pg (25-34); MEAN CORPUSCULAR HGB CONC 32 g/dL (32-36); MEAN CORPUSCULAR VOLUME 91 fL (80-99); MONOCYTES # (AUTO) 1.1 10^3/uL (0.0-1.0); MONOCYTES % (AUTO) 18 % (0-12); NEUTROPHILS # (AUTO) 3.3 10^3/uL (1.8-7.8); NEUTROPHILS % (AUTO) 55 % (42-75); PLATELET COUNT 101 10^3/uL (130-400)
[2022-07-25 10:43] LABS: BILIRUBIN,TOTAL 1.2 MG/DL (0.1-1.0); CALCIUM 9.3 MG/DL (8.5-10.1); CREATININE SERUM 1.97 MG/DL (0.60-1.30); POTASSIUM 4.5 MMOL/L (3.6-5.0); TOTAL PROTEIN 7.8 GM/DL (6.4-8.2)
== END 2022-08-12 | disposition home or self-care (01) ==
LOC: ONC 10:06
PROVIDERS: ATTEND Internal Medicine Hematology & Oncology
DX: D50.9 Iron deficiency anemia, unspecified (principal); C93.10 Chronic myelomonocytic leukemia not having achieved remission; E03.9 Hypothyroidism, unspecified; E11.22 Type 2 diabetes mellitus with diabetic chronic kidney disease; I13.0 Hypertensive heart and chronic kidney disease with heart failure and stage 1 through stage 4 chronic kidney disease, or unspecified chronic kidney disease; N18.30 Chronic kidney disease, stage 3 unspecified; I50.9 Heart failure, unspecified; I25.10 Atherosclerotic heart disease of native coronary artery without angina pectoris; E78.2 Mixed hyperlipidemia
CPT/HCPCS: 36415; 80053; 83615; 85025; 99213

== ENCOUNTER 2022-08-22 09:08 | Outpatient (RCR) | payer MEDICARE, OTHER ==
[2022-08-18 09:38] LABS: BASOPHILS % (AUTO) 0 % (0-10); EOSINOPHILS # (AUTO) 0.1 10^3/uL (0.0-0.3); EOSINOPHILS % (AUTO) 2 % (0-10); HEMATOCRIT 33 % (40-54); HEMOGLOBIN 10.9 g/dL (13.3-17.7); LYMPHOCYTES # (AUTO) 1.4 10^3/uL (1.0-4.0); LYMPHOCYTES % (AUTO) 26 % (12-44); MEAN CORPUSCULAR HEMOGLOBIN 31 pg (25-34); MEAN CORPUSCULAR HGB CONC 33 g/dL (32-36); MEAN CORPUSCULAR VOLUME 94 fL (80-99); MONOCYTES # (AUTO) 0.9 10^3/uL (0.0-1.0); MONOCYTES % (AUTO) 17 % (0-12); NEUTROPHILS # (AUTO) 2.9 10^3/uL (1.8-7.8); NEUTROPHILS % (AUTO) 53 % (42-75); PLATELET COUNT 58 10^3/uL (130-400); WHITE BLOOD COUNT 5.5 10^3/uL (4.3-11.0)
== END 2022-09-12 | disposition home or self-care (01) ==
LOC: ONC 09:08
PROVIDERS: ATTEND Internal Medicine Hematology & Oncology
DX: C93.10 Chronic myelomonocytic leukemia not having achieved remission (principal); D50.9 Iron deficiency anemia, unspecified; E03.9 Hypothyroidism, unspecified; E11.22 Type 2 diabetes mellitus with diabetic chronic kidney disease; I13.0 Hypertensive heart and chronic kidney disease with heart failure and stage 1 through stage 4 chronic kidney disease, or unspecified chronic kidney disease; N18.30 Chronic kidney disease, stage 3 unspecified; I50.9 Heart failure, unspecified; I25.10 Atherosclerotic heart disease of native coronary artery without angina pectoris; E78.2 Mixed hyperlipidemia
CPT/HCPCS: 36415; 82728; 83540; 83550; 85025; 99213

== ENCOUNTER 2022-09-12 18:22 | Emergency (ER) | payer MEDICARE, OTHER ==
[~2022-09-12] VITALS: Ht 187 cm; Wt 99.0 kg
[2022-09-12] MEDS ORDERED: OXYMETAZOLINE (AFRIN) 0.05% NA 30 ML BTL STA (21:17)
--- NOTE | 2022-09-12 21:21 | ED EENT ---
History of Present Illness General Chief Complaint: Nasal Problems Stated Complaint: NOSE BLEED Nursing Triage Note: PT STATES NOSE BLEED THAT STARTED THIS A.M. LT NARE, CONTROLLED AT TRIAGE PT IS ON ASA Source: patient, old records Exam Limitations: no limitations History of Present Illness Date Seen by Provider: Sep 12, 2022 Time Seen by Provider: 21:10 Allergies and Home Medications Allergies Coded Allergies: No Known Drug Allergies (Verified , 04/20/08) Patient Home Medication List Atorvastatin Calcium (Atorvastatin Calcium) 10 Mg Tablet, 10 MG PO HS, (Reported) Entered as Reported by: PIEDAD CONDE on 04/19/21 1145 Carvedilol (Carvedilol) 6.25 Mg Tablet, 6.25 MG PO BID Prescribed by: CHITO HANNAH on 03/29/22 1148 Ferrous Sulfate (Ferosul) 325 Mg (65 Mg Iron) Tablet, 325 MG PO DAILY, (Reported) Entered as Reported by: EDER SEE on 04/19/22 1637 Furosemide (Lasix) 40 Mg Tablet, 40 MG PO BID Prescribed by: CHITO HANNAH on 03/29/22 1148 Glipizide (Glipizide ER) 5 Mg Tab.er.24, 5 MG PO DAILY, (Reported) Entered as Reported by: EDER SEE on 04/19/22 1637 Insulin Glargine,Hum.rec.anlog (Toujeo Solostar) 300 Unit/Ml (1.5 Ml) Insuln.pen, 40 UNIT SQ DAILY, (Reported) Entered as Reported by: PIEDAD CONDE on 04/19/21 1145 Levothyroxine Sodium (Levothyroxine Sodium) 100 Mcg Tablet, 100 MCG PO DAILY, (Reported) Entered as Reported by: DELLA LLANES on 12/23/15 0858 Liraglutide (Victoza 3-Benny) 0.6 Mg/0.1 Ml (18 Mg/3 Ml) Pen.injctr, 0.6 MG SQ DAILY, (Reported) Entered as Reported by: DELLA LLANES on 12/23/15 0858 Magnesium Oxide (Magnesium Oxide) 400 Mg (241.3 Mg Magnesium) Tablet, 400 MG PO BID, (Reported) Entered as Reported by: ADELITA SHEETS on 03/27/22 1604 [place]-3/Dha/Epa/Fish Oil (Fish Oil 1,000 mg Softgel) 1,000 Mg (120 Mg-180 Mg) Capsule, 1,000 MG PO DAILY, (Reported) Entered as Reported by: ADELITA SHEETS on 03/27/22 1604 Pantoprazole Sodium (Pantoprazole Sodium) 40 Mg Tablet.dr, 40 MG PO BID Prescribed by: CHITO HANNAH on 03/29/22 1148 Potassium Chloride (K-Tab ER) 10 Meq Tablet.er, 10 MEQ PO DAILY Prescribed by: CHITO HANNAH on 03/29/22 1148 Tamsulosin HCl (Flomax) 0.4 Mg Cap, 0.4 MG PO DAILY@1800 Prescribed by: CHITO HANNAH on 03/29/22 1148 Trazodone HCl (Trazodone HCl) 100 Mg Tablet, 100 MG PO HS, (Reported) Entered as Reported by: PIEDAD CONDE on 04/19/21 1145 Past Xhrfxal-Amvuad-Trjrfa Hx Patient Social History Tobacco Use?: Yes Smoking Status: Former Smoker Substance use?: No Alcohol Use?: No Immunizations Up To Date Tetanus Booster (TDap): Less than 5yrs First/Initial COVID19 Vaccinat: 11/16/20 Second COVID19 Vaccination Delio: 12/16/20 Third COVID19 Vaccination Date: Seasonal Allergies Seasonal Allergies: Yes Past Medical History Surgery/Hospitalization HX: CABG-1999/L Femoral bypass-s/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/Appendectomy/Cholecystectomy-s/R Femoral stent/Multiple cardiac caths/Inguinal hernia-2021/Umbilical hernia-2000 Surgeries: Yes Appendectomy, CABG, Gallbladder, Vascular Surgery Respiratory: No Cardiac: Yes Atrial Fibrillation, Chronic Edema/Swelling, Coronary Artery Disease, Heart Attack, High Cholesterol, Hypertension Neurological: No Reproductive Disorders: No Sexually Transmitted Disease: No Genitourinary: No Kidney Stones Gastrointestinal: Yes Abdominal Hernia, Gastroesophageal Reflux, Gastrointestinal Bleed, Gall Bladder Disease Musculoskeletal: Yes Gout Endocrine: Yes Diabetes, Insulin dep, Hypothyroidsim HEENT: Yes (glasses and dentures) Hearing Impairment: Denies Cancer: Yes Leukemia Did You Recieve Any Treatments: No Psychosocial: No Integumentary: No Blood Disorders: No Family Medical History Stroke Physical Exam Vital Signs Vital Signs - First Documented 09/12/22 18:45 Temp 35.8 Pulse 76 Resp 20 B/P (MAP) 143/69 (93) Pulse Ox 99 O2 Delivery Room Air Height, Weight, BMI Height: 6'2.00" Weight: 221lbs. 0.0oz. [id number]; 28.00 BMI Method:Stated Progress/Results/Core Measures Results/Orders My Orders Orders - MICHELLE EASTON MD Oxymetazoline 0.05% Nasal [place] (Afrin 0. (09/12/22 21:17) Vital Signs/I&O 09/12/22 18:45 Temp 35.8 Pulse 76 Resp 20 B/P (MAP) 143/69 (93) Pulse Ox 99 O2 Delivery Room Air Blood Pressure Mean: 93 Departure Impression Primary Impression: Epistaxis Additional Impressions: Atrial fibrillation Qualified Codes: I48.91 - Unspecified atrial fibrillation Anticoagulated Disposition: HOME, SELF-CARE Condition: Improved Departure-Patient Inst. Decision time for Depature: 21:19 Referrals: ADELITA MARCELINO DO (PCP/Family) Primary Care Physician Patient Instructions: Nosebleeds (DC) Add. Discharge Instructions: Take all of your usual nighttime medications except skip tonight's dose of Pradaxa. If bleeding is controlled in the morning, resume Pradaxa at that time. You may continue aspirin. Avoid rubbing or blowing your nose. Do not place any items such as a cloth or Kleenex inside your nose. To control bleeding, apply direct pressure and a pinching fashion or use the clamp. Keep your head elevated tonight to reduce risk of bleeding. Use a humidifier when the temperature is very cold and air is dry. If bleeding worsens, use the Afrin provided. Apply to generous squirts in each nostril and then clamp your nose either with direct pressure from your hand or the clamp provided. If this does not stop the bleeding within about 20 minutes, return to the emergency room. Return to care if you have any other serious problems or concerns. All discharge instructions reviewed with patient and/or family. Voiced understanding. MICHELLE EASTON MD Sep 12, 2022 21:21
[2022-09-12 21:30] VITALS: BP 135/67
== END 2022-09-12 21:29 | disposition home or self-care (01) ==
LOC: EDUNIT# 18:22 → ER 18:24
DX: R04.0 Epistaxis (principal); I48.91 Unspecified atrial fibrillation; Z79.01 Long term (current) use of anticoagulants; Z87.891 Personal history of nicotine dependence
CPT/HCPCS: 99281

== ENCOUNTER 2022-10-03 08:46 | Outpatient (RCR) | payer MEDICARE, OTHER ==
[2022-10-03 09:16] LABS: MEAN CORPUSCULAR VOLUME 96 fL (80-99)
[2022-10-03 09:17] LABS: BASOPHILS % (AUTO) 1 % (0-10); EOSINOPHILS # (AUTO) 0.1 10^3/uL (0.0-0.3); EOSINOPHILS % (AUTO) 3 % (0-10); HEMATOCRIT 35 % (40-54); LYMPHOCYTES # (AUTO) 1.1 10^3/uL (1.0-4.0); LYMPHOCYTES % (AUTO) 25 % (12-44); MEAN CORPUSCULAR HEMOGLOBIN 32 pg (25-34); MEAN CORPUSCULAR HGB CONC 34 g/dL (32-36); MONOCYTES # (AUTO) 0.8 10^3/uL (0.0-1.0); MONOCYTES % (AUTO) 19 % (0-12); NEUTROPHILS # (AUTO) 2.2 10^3/uL (1.8-7.8); NEUTROPHILS % (AUTO) 50 % (42-75); PLATELET COUNT 62 10^3/uL (130-400); WHITE BLOOD COUNT 4.4 10^3/uL (4.3-11.0)
[2022-10-03 09:34] LABS: SMEAR SCAN COMMENT YES
[2022-10-03 09:40] LABS: ALBUMIN 4.2 GM/DL (3.2-4.5); BILIRUBIN,TOTAL 1.3 MG/DL (0.1-1.0); CALCIUM 9.3 MG/DL (8.5-10.1); CREATININE SERUM 2.3 MG/DL (0.60-1.30); POTASSIUM 4.8 MMOL/L (3.6-5.0); TOTAL PROTEIN 7.4 GM/DL (6.4-8.2)
== END 2022-10-10 | disposition home or self-care (01) ==
LOC: ONC 08:46
PROVIDERS: ATTEND Internal Medicine Hematology & Oncology
DX: D64.9 Anemia, unspecified (principal); I10 Essential (primary) hypertension; E03.9 Hypothyroidism, unspecified; E78.2 Mixed hyperlipidemia; E11.9 Type 2 diabetes mellitus without complications; E66.9 Obesity, unspecified
CPT/HCPCS: 36415; 80053; 82728; 83540; 83550; 85025

== ENCOUNTER → 2022-11-10 | Outpatient (CLI) | payer MEDICARE, OTHER | LOC: CARD 08:25 | PROVIDERS: ATTEND Physician Assistant | DX: I11.9 Hypertensive heart disease without heart failure (principal); I08.3 Combined rheumatic disorders of mitral, aortic and tricuspid valves | CPT/HCPCS: 93306 ==

== ENCOUNTER 2022-11-28 09:27 | Outpatient (RCR) | payer MEDICARE, OTHER ==
[2022-11-24 09:21] LABS: HEMATOCRIT 33 % (40-54)
[2022-11-24 09:23] LABS: BASOPHILS % (AUTO) 0 % (0-10); EOSINOPHILS # (AUTO) 0.1 10^3/uL (0.0-0.3); EOSINOPHILS % (AUTO) 1 % (0-10); HEMOGLOBIN 11.4 g/dL (13.3-17.7); LYMPHOCYTES # (AUTO) 1.2 10^3/uL (1.0-4.0); LYMPHOCYTES % (AUTO) 26 % (12-44); MEAN CORPUSCULAR HEMOGLOBIN 32 pg (25-34); MEAN CORPUSCULAR HGB CONC 35 g/dL (32-36); MEAN CORPUSCULAR VOLUME 93 fL (80-99); MONOCYTES # (AUTO) 1.1 10^3/uL (0.0-1.0); MONOCYTES % (AUTO) 24 % (0-12); NEUTROPHILS # (AUTO) 2.1 10^3/uL (1.8-7.8); NEUTROPHILS % (AUTO) 47 % (42-75); WHITE BLOOD COUNT 4.5 10^3/uL (4.3-11.0)
[2022-11-24 09:29] LABS: ALBUMIN 4.3 GM/DL (3.2-4.5); POTASSIUM 4.3 MMOL/L (3.6-5.0)
[2022-11-24 09:30] LABS: CALCIUM 9.2 MG/DL (8.5-10.1)
[2022-11-24 09:32] LABS: TOTAL PROTEIN 7.7 GM/DL (6.4-8.2)
[2022-11-24 09:33] LABS: BILIRUBIN,TOTAL 1.2 MG/DL (0.1-1.0)
[2022-11-24 09:34] LABS: PLATELET COUNT 72 10^3/uL (130-400)
[2022-11-24 09:35] LABS: CREATININE SERUM 2.51 MG/DL (0.60-1.30)
== END 2022-12-10 | disposition home or self-care (01) ==
LOC: ONC 09:27
PROVIDERS: ATTEND Internal Medicine Hematology & Oncology
DX: D64.9 Anemia, unspecified (principal); I13.0 Hypertensive heart and chronic kidney disease with heart failure and stage 1 through stage 4 chronic kidney disease, or unspecified chronic kidney disease; N18.30 Chronic kidney disease, stage 3 unspecified; E03.9 Hypothyroidism, unspecified; E78.2 Mixed hyperlipidemia; E11.9 Type 2 diabetes mellitus without complications; E66.9 Obesity, unspecified; I70.90 Unspecified atherosclerosis
CPT/HCPCS: 36415; 80053; 82728; 83540; 83550; 85025

== ENCOUNTER 2023-02-27 08:44 | Outpatient (RCR) | payer MEDICARE, OTHER ==
[2023-02-23 09:16] LABS: BASOPHILS % (AUTO) 1 % (0-10); EOSINOPHILS % (AUTO) 1 % (0-10)
[2023-02-23 09:18] LABS: HEMATOCRIT 28 % (40-54); HEMOGLOBIN 9.1 g/dL (13.3-17.7); LYMPHOCYTES # (AUTO) 1.1 10^3/uL (1.0-4.0); LYMPHOCYTES % (AUTO) 28 % (12-44); MEAN CORPUSCULAR HEMOGLOBIN 31 pg (25-34); MEAN CORPUSCULAR HGB CONC 33 g/dL (32-36); MEAN CORPUSCULAR VOLUME 95 fL (80-99); MONOCYTES # (AUTO) 0.6 10^3/uL (0.0-1.0); MONOCYTES % (AUTO) 17 % (0-12); NEUTROPHILS # (AUTO) 1.9 10^3/uL (1.8-7.8); NEUTROPHILS % (AUTO) 50 % (42-75); PLATELET COUNT 69 10^3/uL (130-400); WHITE BLOOD COUNT 3.8 10^3/uL (4.3-11.0)
[2023-02-23 09:33] LABS: ALBUMIN 4.1 GM/DL (3.2-4.5); BILIRUBIN,TOTAL 0.9 MG/DL (0.1-1.0); CREATININE SERUM 2.08 MG/DL (0.60-1.30); POTASSIUM 4.9 MMOL/L (3.6-5.0); TOTAL PROTEIN 7.1 GM/DL (6.4-8.2)
[~2023-02-27 08:44] MED LIST changes: +POTA-185 PO; -POTA10TA PO
== END 2023-03-12 | disposition home or self-care (01) ==
LOC: ONC 08:44
PROVIDERS: ATTEND Internal Medicine Hematology & Oncology
DX: D64.9 Anemia, unspecified (principal); I13.0 Hypertensive heart and chronic kidney disease with heart failure and stage 1 through stage 4 chronic kidney disease, or unspecified chronic kidney disease; N18.30 Chronic kidney disease, stage 3 unspecified; I50.42 Chronic combined systolic (congestive) and diastolic (congestive) heart failure; E03.9 Hypothyroidism, unspecified; E78.2 Mixed hyperlipidemia; E11.9 Type 2 diabetes mellitus without complications; E66.9 Obesity, unspecified; I48.0 Paroxysmal atrial fibrillation; I25.10 Atherosclerotic heart disease of native coronary artery without angina pectoris
CPT/HCPCS: 36415; 80053; 82728; 83540; 83550; 85025

== ENCOUNTER 2023-03-27 10:52 | Outpatient (RCR) | payer MEDICARE, OTHER ==
[2023-03-20 09:07] LABS: BASOPHILS % (AUTO) 1 % (0-10); EOSINOPHILS % (AUTO) 1 % (0-10); HEMATOCRIT 31 % (40-54); HEMOGLOBIN 10.3 g/dL (13.3-17.7); LYMPHOCYTES # (AUTO) 1.1 10^3/uL (1.0-4.0); LYMPHOCYTES % (AUTO) 34 % (12-44); MEAN CORPUSCULAR HEMOGLOBIN 32 pg (25-34); MEAN CORPUSCULAR HGB CONC 33 g/dL (32-36); MEAN CORPUSCULAR VOLUME 97 fL (80-99); MONOCYTES # (AUTO) 0.6 10^3/uL (0.0-1.0); MONOCYTES % (AUTO) 20 % (0-12); NEUTROPHILS # (AUTO) 1.3 10^3/uL (1.8-7.8); NEUTROPHILS % (AUTO) 40 % (42-75); PLATELET COUNT 70 10^3/uL (130-400); WHITE BLOOD COUNT 3.2 10^3/uL (4.3-11.0)
== END 2023-04-12 | disposition home or self-care (01) ==
LOC: ONC 10:52
PROVIDERS: ATTEND Internal Medicine Hematology & Oncology
DX: D64.9 Anemia, unspecified (principal); I13.0 Hypertensive heart and chronic kidney disease with heart failure and stage 1 through stage 4 chronic kidney disease, or unspecified chronic kidney disease; E11.22 Type 2 diabetes mellitus with diabetic chronic kidney disease; N18.30 Chronic kidney disease, stage 3 unspecified; E03.9 Hypothyroidism, unspecified; E78.2 Mixed hyperlipidemia; E66.9 Obesity, unspecified; I48.0 Paroxysmal atrial fibrillation; I25.10 Atherosclerotic heart disease of native coronary artery without angina pectoris; I50.9 Heart failure, unspecified
CPT/HCPCS: 36415; 82607; 82728; 82746; 83540; 83550; 83615; 85025; 99214

== ENCOUNTER 2023-05-22 08:52 | Outpatient (RCR) | payer MEDICARE, OTHER ==
[2023-05-17 09:35] LABS: BASOPHILS % (AUTO) 1 % (0-10); MEAN CORPUSCULAR HEMOGLOBIN 33 pg (25-34)
[2023-05-17 09:37] LABS: EOSINOPHILS % (AUTO) 0 % (0-10); HEMATOCRIT 32 % (40-54); LYMPHOCYTES # (AUTO) 1.1 10^3/uL (1.0-4.0); LYMPHOCYTES % (AUTO) 33 % (12-44); MEAN CORPUSCULAR HGB CONC 32 g/dL (32-36); MEAN CORPUSCULAR VOLUME 105 fL (80-99); MONOCYTES # (AUTO) 0.6 10^3/uL (0.0-1.0); MONOCYTES % (AUTO) 18 % (0-12); NEUTROPHILS # (AUTO) 1.6 10^3/uL (1.8-7.8); NEUTROPHILS % (AUTO) 47 % (42-75); PLATELET COUNT 105 10^3/uL (130-400); WHITE BLOOD COUNT 3.4 10^3/uL (4.3-11.0)
== END 2023-06-12 | disposition home or self-care (01) ==
LOC: ONC 08:52
PROVIDERS: ATTEND Internal Medicine Hematology & Oncology
DX: D50.9 Iron deficiency anemia, unspecified (principal); I13.0 Hypertensive heart and chronic kidney disease with heart failure and stage 1 through stage 4 chronic kidney disease, or unspecified chronic kidney disease; E11.22 Type 2 diabetes mellitus with diabetic chronic kidney disease; N18.30 Chronic kidney disease, stage 3 unspecified; E03.9 Hypothyroidism, unspecified; E78.2 Mixed hyperlipidemia; E66.9 Obesity, unspecified; I48.0 Paroxysmal atrial fibrillation; I25.10 Atherosclerotic heart disease of native coronary artery without angina pectoris; I50.9 Heart failure, unspecified
CPT/HCPCS: 36415; 82728; 83540; 83550; 85025